=== PATIENT | male | born 1945 | race American Indian/Alaskan Native ===

== ENCOUNTER 2019-10-04 14:32 | Inpatient (IN) | payer MEDICARE, OTHER ==
[~2019-10-04] VITALS: Ht 172.7 cm; Wt 99.8 kg
[~2019-10-04 14:32] MED LIST: Adult Low Dose81 MG PO; Carvedilol25 MG PO; LEVO750; Metformin HCl500 M1 PO; Ramipril10 MG PO; SILD50TA PO; Simvastatin20 MG PO; Spironolactone25 MG PO
[2019-10-04 19:58] LABS: BASOPHILS ABSOLUTE AUTO 0.02 K/mm3 (0.00-0.23); BASOPHILS PERCENT AUTO 0 % (0-2); EOSINOPHILS ABSOLUTE AUTO 0.06 K/mm3 (0.00-0.68); EOSINOPHILS PERCENT AUTO 1 % (0-6); Hematocrit 37.8 % (37.0-53.0); Hemoglobin 12.8 g/dL (13.5-17.5); IMMATURE GRAN ABSOLUTE AUTO 0.03 K/mm3 (0.00-0.10); IMMATURE GRAN PERCENT AUTO 0 % (0-1); LYMPHOCYTES ABSOLUTE AUTO 1.21 K/mm3 (0.84-5.20); LYMPHOCYTES PERCENT AUTO 15 % (21-46); MONOCYTES ABSOLUTE AUTO 0.84 K/mm3 (0.16-1.47); MONOCYTES PERCENT AUTO 10 % (4-13); Mean Corpuscular HGB 33.5 pg (26.0-34.0); Mean Corpuscular HGB Conc 33.9 g/dL (31.5-36.5); Mean Corpuscular Volume 99 fL (80-100); Mean Platelet Volume 10.8 fL (9.1-12.4); NEUTROPHILS ABSOLUTE AUTO 6.09 K/mm3 (1.96-9.15); NEUTROPHILS PERCENT AUTO 74 % (41-73); Platelet Count 276 K/mm3 (150-400); RDW Standard Deviation 43.8 fL (35.1-46.3); Red Blood Cell Count 3.82 M/mm3 (4.30-5.90); White Blood Cell Count 8.25 K/mm3 (4.00-11.30)
[2019-10-04 20:18] LABS: Alanine Aminotransfer (ALT/SGP 15 U/L (12-78); Albumin, Blood 3.6 g/dL (3.4-5.0); Albumin/Globulin Ratio 0.8 (0.8-1.8); Alk Phos 113 U/L (50-136); Anion Gap 6 mmol/L (6-16); Aspartate Aminotrans (AST/SGOT 16 U/L (12-37); Bilirubin, Total 0.7 mg/dL (0.1-1.0); Blood Urea Nitrogen 11 mg/dL (8-24); Bun/Creatinine Ratio 11.4 (12.0-20.0); CO2, Blood 31 mmol/L (21-32); Calcium, Blood 9.6 mg/dL (8.5-10.1); Chloride, Blood 99 mmol/L (98-108); Creatinine, Blood 0.97 mg/dL (0.60-1.20); Globulin, Blood 4.6 g/dL (2.2-4.0); Glomerular Filtration Rate >60 (60-); Glucose, Blood 139 mg/dL (70-99); Potassium, Blood 3.8 mmol/L (3.5-5.5); Sodium, Blood 136 mmol/L (136-145); Total Protein, Blood 8.2 g/dL (6.4-8.2)
[2019-10-04] MEDS ORDERED: Ramipril5 MG PO (20:45)
[2019-10-04] MEDS ORDERED: Metformin HCl1000 MG PO (20:46)
[2019-10-04] MEDS ORDERED: TAMSULOSIN HCL0.4 M1 PO (20:46)
[2019-10-04] MEDS ORDERED: ATOR10 PO (20:47)
[2019-10-04] MEDS ORDERED: FUROSEMIDE40 MG PO (20:47)
[2019-10-04] MEDS ORDERED: NEURONTIN300 MG PO (20:47)
[2019-10-04] MEDS ORDERED: Cetirizine HCl10 MG PO (20:49)
[2019-10-04] MEDS ORDERED: CARVEDILOL12.5 MG PO (21:06)
[2019-10-04] MEDS ORDERED: Coreg12.5 MG PO (22:18)
[2019-10-04] MEDS ORDERED: TOCO1000 PO (22:23)
[2019-10-04] MEDS ORDERED: THERA1 EACH PO (22:23)
--- NOTE | 2019-10-04 23:24 | NUR ---
ADMIT TO SURGICAL FLOOR PT ARRIVED FROM ED VIA WHEELCHAIR AT APPROX 2200 TODAY. IS A/OX4 WITH VSS. DENIES SOB, CHEST PAIN, N/V OR ANY N/T. ORIENTATION TO ROOM GIVEN. IS CURRENTLY RESTING IN BED WITH CALL LIGHT IN REACH.
--- NOTE | 2019-10-05 03:50 | NUR ---
SHIFT SUMMARY PT A/OX4 WITH VSS. DENIES N/V AND IS PASSING FLATUS. MEDICATED FOR PAIN ONCE T/O THE NIGH. USES URINAL AND CALL LIGHT APPROPRIATELY. IND IN ROOM WITH STAND BY. HAS IVF RUNNING PER ORDERS. DID NOT SLEEP WELL, STATES HE USUALLY STAYS AWAKE UNTIL 2AM. IS CURRENTLY WATCHING TV IN BED WITH CALL LIGHT IN REACH. WILL CONT TO MONITOR AND GIVE REPORT TO ONCOMING RN.
[2019-10-05 04:58] LABS: BASOPHILS ABSOLUTE AUTO 0.02 K/mm3 (0.00-0.23); BASOPHILS PERCENT AUTO 0 % (0-2); EOSINOPHILS ABSOLUTE AUTO 0.12 K/mm3 (0.00-0.68); EOSINOPHILS PERCENT AUTO 2 % (0-6); Hematocrit 36.5 % (37.0-53.0); Hemoglobin 12.5 g/dL (13.5-17.5); IMMATURE GRAN ABSOLUTE AUTO 0.03 K/mm3 (0.00-0.10); IMMATURE GRAN PERCENT AUTO 0 % (0-1); LYMPHOCYTES ABSOLUTE AUTO 1.44 K/mm3 (0.84-5.20); LYMPHOCYTES PERCENT AUTO 18 % (21-46); MONOCYTES ABSOLUTE AUTO 1.11 K/mm3 (0.16-1.47); MONOCYTES PERCENT AUTO 14 % (4-13); Mean Corpuscular HGB 33.6 pg (26.0-34.0); Mean Corpuscular HGB Conc 34.2 g/dL (31.5-36.5); Mean Corpuscular Volume 98 fL (80-100); Mean Platelet Volume 10.2 fL (9.1-12.4); NEUTROPHILS ABSOLUTE AUTO 5.27 K/mm3 (1.96-9.15); NEUTROPHILS PERCENT AUTO 66 % (41-73); Platelet Count 260 K/mm3 (150-400); RDW Coefficient Variation 11.9 % (11.7-14.2); RDW Standard Deviation 43.6 fL (35.1-46.3); Red Blood Cell Count 3.72 M/mm3 (4.30-5.90); White Blood Cell Count 7.99 K/mm3 (4.00-11.30)
[2019-10-05 05:13] LABS: Anion Gap 6 mmol/L (6-16); Blood Urea Nitrogen 9 mg/dL (8-24); Bun/Creatinine Ratio 9.7 (12.0-20.0); CO2, Blood 28 mmol/L (21-32); Chloride, Blood 103 mmol/L (98-108); Creatinine, Blood 0.93 mg/dL (0.60-1.20); Glomerular Filtration Rate >60 (60-); Glucose, Blood 117 mg/dL (70-99); Potassium, Blood 3.9 mmol/L (3.5-5.5); Sodium, Blood 137 mmol/L (136-145)
--- NOTE | 2019-10-05 11:28 | NUR ---
SOAP SUDS ENEMA GIVEN. PT WAS ABLE TO PASS 2 BROWN LIQUID STOOLS.
--- NOTE | 2019-10-05 17:47 | NUR ---
SHIFT SUMMARY PT'S PRIMARY COMPLAINT THIS SHIFT HAS BEEN SEVERE LOWER BACK PAIN, HE IS GETTING DILAUDID WHICH HELPS TO MANAGE. PT HAS DENIED ABD PAIN, N/V THIS SHIFT. PT HAD 2 LIQUID BOWEL MOVEMENTS TODAY. HE IS A 1 PERSON SBA WHEN OOB. VSS. WILL MONITOR UNTIL REPORT TO ONCOMING RN.
--- NOTE | 2019-10-05 22:01 | NUR ---
SPOKE TO DR. BENITEZ ABOUT PT ELEVATED BP EVEN AFTER PRN GIVEN. ORDERS TO RESTART HOME BP MEDS, COREG RAMIPRIL AND ALDACTONE GIVEN. COREG AND RAMIPRIL ORDERED TO BE GIVEN NOW. PHARMACY SUBSTITUTE OF LISINOPRIL FOR RAMIPRIL CONFIRMED WITH PHARMACY.
--- NOTE | 2019-10-06 04:28 | NUR ---
SHIFT SUMMARY AA0X4, VSS. PT HAS HAD MULTIPLE LOOSE STOOLS. PT URGENCY HAS CAUSE SOME INC TODAY. PT REPORTED THAT HIS STOMACH HAS FELT BETTER. STILL C/O PAIN 10/10 IN LOWER BACK DURING SHIFT. PT AMBULATES WELL TO RESTROOM TO VOID. PT HAS BEEN PLEASANT AND COOPERATIVE WITH CARE DURING SHIFT. MEDICATED FOR PAIN WITH 0.5 DIL PER EMAR. PT APPEARS COMFORTABLE IN BED WITH NO VISIBLE GRIMACE OR MOANING, STILL REPORTS 10/10.
--- NOTE | 2019-10-06 07:36 | NUR ---
DR SIMON RECENTLY IN TO SEE PT.
--- NOTE | 2019-10-06 08:08 | NUR ---
DR HAHN HERE TO SEE PT, DISCUSSED PT'S C/O BACK PAIN, VS. FRIEND IN ROOM.
[2019-10-06] MEDS ORDERED: OXYC5 PO (15:05)
[2019-10-06] MEDS ORDERED: LIDO700A20 (15:16)
[2019-10-06] MEDS ORDERED: SENNA PLUS 8.61 EACH PO (15:18)
[2019-10-06] MEDS ORDERED: MIRALAX17 GM PO (15:18)
--- NOTE | 2019-10-06 15:35 | NUR ---
DISCHARGE: PT EATING AND DRINKING, VOIDING, HAVING BM'S. PT REPORTS WANTING TO GO HOME, REPORTS PAIN MEDICATION WORKING WHEN PT NOT BOTHERED BY MULT PEOPLE COMING IN AND OUT OF ROOM. THERAPY HAS SEEN PT AND REPORTS CLEARED TO GO HOME. MEDICATIONS WERE CALLED TO PHARMACY OF PT'S CHOICE. LOAN DOCUMENTS CLOSER ALSO CAME TO SEE PT TODAY. PT REPORTS UNDERSTANDING OF DISCHARGE INSTRUCTIONS INCLUDING DOSES CHANGED ON HOME MEDICATIONS. PT REPORTS HAVING DOSES AT HOME AND THAT HE GETS A 90 DAY SUPPLY AND HAS PLENTY AT HOME. PT SENT WITH BELONGINGS AND SCRIPT FOR PAIN WELL PAPERWORK. PT RECIEVING RIDE HOME FROM FRIEND.
== END 2019-10-06 16:15 | disposition home or self-care (01) | DRG 390 ==
LOC: ER 14:32 → SURS 21:57
PROVIDERS: Emergency Medicine; ADMIT Internal Medicine
DX: K56.609 Unspecified intestinal obstruction, unspecified as to partial versus complete obstruction (principal); I10 Essential (primary) hypertension; E11.9 Type 2 diabetes mellitus without complications; E78.5 Hyperlipidemia, unspecified; E66.9 Obesity, unspecified; Z68.33 Body mass index [BMI] 33.0-33.9, adult; Z79.82 Long term (current) use of aspirin; Z79.84 Long term (current) use of oral hypoglycemic drugs
CPT/HCPCS: 36415; 71045; 74019; 74176; 74250; 80048; 80053; 82947; 83690; 85025; 93005; 93010; 96361; 96374; 96375; 97161; 97530; 99285-25; J1170; J2405; J7030; J7120

== ENCOUNTER 2020-03-27 00:04 | Emergency (ER) | payer OTHER, MEDICARE ==
[~2020-03-27] VITALS: Ht 172.7 cm; Wt 99.8 kg
[~2020-03-27 00:04] MED LIST changes: +ASPIR 8181 MG PO; +ATOR10 PO; -Adult Low Dose81 MG PO; +CARVEDILOL12.5 MG PO; +CEFD300 PO; +Cetirizine HCl10 MG PO; +Coreg12.5 MG PO; +FUROSEMIDE40 MG PO; +LIDO700A20; +MIRALAX17 GM PO; +Metformin HCl1000 MG PO; +NEURONTIN300 MG PO; +OXYC5 PO; +Ramipril5 MG PO; +SENNA PLUS 8.61 EACH PO; +TAMSULOSIN HCL0.4 M1 PO; +THERA1 EACH PO; +TOCO1000 PO
== END 2020-03-27 01:25 | disposition home or self-care (01) ==
LOC: ER 00:04
DX: T83.098A Other mechanical complication of other urinary catheter, initial encounter (principal); I10 Essential (primary) hypertension; E11.9 Type 2 diabetes mellitus without complications; E78.5 Hyperlipidemia, unspecified
CPT/HCPCS: 99282

== ENCOUNTER 2020-04-11 12:20 | Inpatient (IN) | payer OTHER, MEDICARE ==
[~2020-04-11] VITALS: Ht 175.3 cm; Wt 93.3 kg
[2020-04-11 13:19] LABS: International Normalized Ratio 1.23
[2020-04-11 13:33] LABS: BASOPHILS ABSOLUTE AUTO 0.02 K/mm3 (0.00-0.23); BASOPHILS PERCENT AUTO 0 % (0-2); EOSINOPHILS PERCENT AUTO 0 % (0-6); IMMATURE GRAN ABSOLUTE AUTO 0.29 K/mm3 (0.00-0.10); IMMATURE GRAN PERCENT AUTO 2 % (0-1); LYMPHOCYTES ABSOLUTE AUTO 0.99 K/mm3 (0.84-5.20); LYMPHOCYTES PERCENT AUTO 5 % (21-46); MONOCYTES ABSOLUTE AUTO 1.83 K/mm3 (0.16-1.47); MONOCYTES PERCENT AUTO 9 % (4-13); Mean Corpuscular HGB 30.9 pg (26.0-34.0); Mean Corpuscular HGB Conc 29.9 g/dL (31.5-36.5); Mean Corpuscular Volume 103 fL (80-100); Mean Platelet Volume 10.3 fL (9.1-12.4); NEUTROPHILS ABSOLUTE AUTO 16.44 K/mm3 (1.96-9.15); NEUTROPHILS PERCENT AUTO 84 % (41-73); NRBC ABSOLUTE 0.06 K/mm3 (0.00-0.02); NRBC Auto 0.3 /100 WBC (0.0-0.2); Platelet Count 494 K/mm3 (150-400); RDW Standard Deviation 62.7 fL (35.1-46.3); Red Blood Cell Count 1.23 M/mm3 (4.30-5.90); White Blood Cell Count 19.57 K/mm3 (4.00-11.30)
[2020-04-11 13:35] LABS: Albumin, Blood 2.7 g/dL (3.4-5.0); Albumin/Globulin Ratio 0.7 (0.8-1.8); Bilirubin, Total 0.4 mg/dL (0.1-1.0); Calcium, Blood 8.7 mg/dL (8.5-10.1); Creatinine, Blood 1.78 mg/dL (0.60-1.20); Globulin, Blood 3.7 g/dL (2.2-4.0); Total Protein, Blood 6.4 g/dL (6.4-8.2)
[2020-04-11 13:39] LABS: Hemoglobin 3.8 g/dL (13.5-17.5)
[2020-04-11 13:40] LABS: Hematocrit 12.7 % (37.0-53.0)
[2020-04-11] MEDS ORDERED: SILDENAFIL CITR50 MG PO (13:42)
[2020-04-11] MEDS ORDERED: TAMSULOSIN HCL0.4 M1 PO (13:42)
[2020-04-11] MEDS ORDERED: NEURONTIN300 MG PO (13:44)
[2020-04-11 16:49] LABS: Source, Urine Catheter
[2020-04-11 16:56] LABS: Appearance, Urine Turbid (Clear); Bilirubin, Urine Neg (Neg); Blood, Urine 4+ (Neg); Color, Urine Yellow (P-Yellow); Glucose Qualitative, Urine Neg (Neg); Ketones, Urine 1+ (Neg); Leukocyte Esterase, Urine 3+ (Neg); Nitrite, Urine Neg (Neg); Protein, Urine 2+ (Neg); Specific Gravity, Urine 1.015 (1.003-1.022); Urobilinogen, Urine NORM (Normal)
[2020-04-11 17:14] LABS: White Blood Cells, Urine TNTC /hpf (0-5)
[2020-04-11 17:15] LABS: Bacteria Many /hpf; Red Blood Cells, Urine 25-50 /hpf (0-2); Squamous Epithelial Cells Not Seen /hpf (Few)
[2020-04-11 17:33] LABS: U Oxycodone Screen DETECTED
[2020-04-11 17:34] LABS: U Amphetamine Screen Not Detected; U Barbituate Screen Not Detected; U Benzodiazapine Screen Not Detected; U Buprenorphine Screen Not Detected; U Cannabinoids Screen Not Detected; U Cocaine Screen Not Detected; U Methadone Screen Not Detected; U Methamphetamine Screen Not Detected; U Opiates Screen Not Detected; U Phencyclidine Screen Not Detected; U Propoxyphene Screen Not Detected
[2020-04-11 18:45] LABS: BASOPHILS ABSOLUTE AUTO 0.01 K/mm3 (0.00-0.23); BASOPHILS PERCENT AUTO 0 % (0-2); EOSINOPHILS PERCENT AUTO 0 % (0-6); Hematocrit 18.2 % (37.0-53.0); IMMATURE GRAN ABSOLUTE AUTO 0.14 K/mm3 (0.00-0.10); IMMATURE GRAN PERCENT AUTO 1 % (0-1); LYMPHOCYTES ABSOLUTE AUTO 0.62 K/mm3 (0.84-5.20); LYMPHOCYTES PERCENT AUTO 4 % (21-46); MONOCYTES ABSOLUTE AUTO 1.53 K/mm3 (0.16-1.47); MONOCYTES PERCENT AUTO 10 % (4-13); Mean Corpuscular HGB 30.2 pg (26.0-34.0); Mean Corpuscular HGB Conc 31.3 g/dL (31.5-36.5); Mean Platelet Volume 9.9 fL (9.1-12.4); NEUTROPHILS ABSOLUTE AUTO 12.45 K/mm3 (1.96-9.15); NEUTROPHILS PERCENT AUTO 84 % (41-73); NRBC ABSOLUTE 0.03 K/mm3 (0.00-0.02); NRBC Auto 0.2 /100 WBC (0.0-0.2); Platelet Count 390 K/mm3 (150-400); RDW Coefficient Variation 17.2 % (11.7-14.2); RDW Standard Deviation 58.4 fL (35.1-46.3); Red Blood Cell Count 1.89 M/mm3 (4.30-5.90); White Blood Cell Count 14.75 K/mm3 (4.00-11.30)
[2020-04-11 18:48] LABS: Mean Corpuscular Volume 96 fL (80-100)
[2020-04-11 18:51] LABS: Hemoglobin 5.7 g/dL (13.5-17.5)
--- NOTE | 2020-04-11 20:58 | NUR ---
ADMIT RECEIVED FROM ER VIA GURNEY. PT IS AWAKE AND ALERT. ORIENTED TO SELF AND MONTH/YEAR ONLY AT THIS TIME. THINKS HE IS IN [facility] AND DOES NOT KNOW THAT HE IS IN THE HOSPITAL. CONFUSED CONVERSATION NOTED AND PT APPEARS TO BE HAVING VISUAL HALLUCINATIONS. TREMORS NOTED IN BILATERAL UPPER EXTREMITIES AND IN CHEST. PT STATES THIS IS NORMAL FOR HIM. MOVES ALL EXTREMITIES WEAKLY AND FOLLOWS SIMPLE COMMANDS. ANGRY AT TIMES. MONITOR SHOWS OCCASIONAL PACED RHYTHM- DIFFICULT TO ASSESS UNDERLYING RHYTHM D/T TREMORING. BP STABLE. 2LNC WITH SATS 97-97%. RESPIRATIONS ARE EVEN AND UNLABORED. DENIES C/O DYSPNEA OR SOB. DENIES C/O PAIN OR NAUSEA AT THIS TIME. C/O BEING THIRSTY AND BECOMES ANGRY WHEN TOLD THAT HE IS NPO. KEARNEY PATENT AND DRAINING CLEAR YELLOW URINE. PROTONIX INFUSING PER ORDER. 3RD UNIT PRBCs INFUSING AT THIS TIME. SEE ADMIT ASSESSMENT FOR FULL ASSESSMENT.
--- NOTE | 2020-04-11 21:00 | NUR ---
CALL TO DR. INDER LOVING NOTIFIED OF THE FACT THAT THE PT DID NOT GO TO OR THIS EVENING. WILL CONTINUE PROTONIX ORDERED AND WILL TRANSFUSE NEEDED TO KEEP HGB > 8. PT WILL REMAIN NPO.
[2020-04-12 00:49] LABS: Hematocrit 24.5 % (37.0-53.0)
--- NOTE | 2020-04-12 01:41 | NUR ---
RESTRAINTS PT CONTINUES TO BE CONFUSED AND IS NOW PULLING ON IV LINES AND IVs. BILATERAL SOFT WRIST RESTRAINTS ON AT THIS TIME.
[2020-04-12 04:14] LABS: BASOPHILS ABSOLUTE AUTO 0.01 K/mm3 (0.00-0.23); BASOPHILS PERCENT AUTO 0 % (0-2); EOSINOPHILS PERCENT AUTO 0 % (0-6); Hematocrit 23.3 % (37.0-53.0); Hemoglobin 7.5 g/dL (13.5-17.5); IMMATURE GRAN ABSOLUTE AUTO 0.18 K/mm3 (0.00-0.10); IMMATURE GRAN PERCENT AUTO 1 % (0-1); LYMPHOCYTES ABSOLUTE AUTO 0.65 K/mm3 (0.84-5.20); LYMPHOCYTES PERCENT AUTO 5 % (21-46); MONOCYTES ABSOLUTE AUTO 1.54 K/mm3 (0.16-1.47); MONOCYTES PERCENT AUTO 11 % (4-13); Mean Corpuscular HGB 30.6 pg (26.0-34.0); Mean Corpuscular HGB Conc 32.2 g/dL (31.5-36.5); Mean Corpuscular Volume 95 fL (80-100); Mean Platelet Volume 9.3 fL (9.1-12.4); NEUTROPHILS ABSOLUTE AUTO 11.94 K/mm3 (1.96-9.15); NEUTROPHILS PERCENT AUTO 83 % (41-73); NRBC ABSOLUTE 0.07 K/mm3 (0.00-0.02); NRBC Auto 0.5 /100 WBC (0.0-0.2); Platelet Count 331 K/mm3 (150-400); RDW Coefficient Variation 16.7 % (11.7-14.2); RDW Standard Deviation 55.8 fL (35.1-46.3); Red Blood Cell Count 2.45 M/mm3 (4.30-5.90); White Blood Cell Count 14.32 K/mm3 (4.00-11.30)
[2020-04-12 04:34] LABS: Bun/Creatinine Ratio 29.9 (12.0-20.0); Calcium, Blood 7.9 mg/dL (8.5-10.1); Creatinine, Blood 1.44 mg/dL (0.60-1.20); Potassium, Blood 3.4 mmol/L (3.5-5.5)
--- NOTE | 2020-04-12 06:12 | NUR ---
SHIFT SUMMARY CONTINUES TO BE CONFUSED AND DISORIENTED. ORIENTED TO SELF AND YEAR ONLY THIS AM. FOLLOWS DIRECTIONS. CONTINUES WITH VISUAL HALLUCINATIONS. CIWA 14-16. MEDICATED WITH ATIVAN 2MG IV X 2 DOSES. BILATERAL SOFT WRIST RESTRAINTS STARTED AT 0141 D/T PT PULLING ON IVs AND IV LINES. NPO T/O NOC. NO SIGNS OF ACTIVE BLEED NOTED. PT DENIES NAUSEA. C/O BEING HUNGRY AND THIRSTY. TOTAL OF 5 UNITS OF PRBCs GIVEN IN ER AND ICU. 5TH UNIT INFUSING AT THIS TIME. VSS. PACED RHYTHM NOTED. RA SATS STABLE AND RESPIRATIONS EVEN AND UNLABORED. KEARNEY PATENT AND DRAINING CLOUDY YELLOW URINE. BANANA BAG AND LR ON HOLD WHILE PRBCs ARE INFUSING. PROTONIX GTT CONTINUES PER ORDER. WILL REPORT TO ONCOMING RN WHEN AVAILABLE.
--- NOTE | 2020-04-12 07:57 | NUR ---
ASSUMED CARE RECEIVED REPORT FROM WILMAR ROTH. PT IS LYING IN BED AWAKE, CONFUSED, AND TREMULOUS. HE KNOWS HES IN A HOSP[place] IN [place], BUT IS MAKING ILLOGICAL STATEMENTS, AND HALLUCINATING. HE IS OFTEN TALKING ALOUD WHEN NO ONE IS IN ROOM. HE CAN ANSWER SOME BASIC QUESTIONS ABOUT HIS CURRENT COMFORT LEVEL. HE IS A LITTLE ANXIOUS, NOT IN PAIN, AND DENIES NAUSEA. HE HAS A PROTONIX GTTP INFUSING AT 10ML/HR, HIS BLOOD IS CURRENTLY BEING FLUSHED, AND HE HAS NS TKO. ONCE THE BLOOD IS DONE, I WILL INFUSE THE REST OF THE BANANA BAG. HE IS IN SWB RESTRAINTS. HE HAS A PATENT KEARNEY DRAINING YELLOW URINE, HE IS REFUSING SCDs (TO THE POINT OF AGITATION). HE HAS A MESSY CARDIAC MONITORING TRACING, THAT WILL OFTEN MEASURE DOUBLE THE ACTUAL RATE. HE HAS A PACER (UNKNOWN EXACTLY WHAT TYPE) BUT HE IS GETING VENTRIULARLY PACED NEARLY ALL THE TIME EXCEPT FOR THE SEMI FREQUENT PVCs. BED IS LOW AND LOCKED. CALL LIGHT WITHIN REACH.
--- NOTE | 2020-04-12 09:23 | NUR ---
UPDATE PT APPEARS COMFORTABLE, ALTHOUGH HE STILL MUMBLES TO HIMSELF IN ROOM. HE HAS STABLE VITALS - IT IS DIFFICULT TO GET AN ACCURATE SPO2 MEASUREMENT - I HAVE BEEN SPOT CHECKING SATs. THE CARDIAC MONITORING CONTINUES TO FREQUENTLY DOUBLE COUNT THE HEART RATE BY ACCIDENT - SO NOT EVERY FAST RATE APPEARS TO BE TRUE. DR. CARPENTER SAYS THAT PT CAN HAVE CLEAR LIQUIDS, BUT AFTER LUNCH TO MAKE HIM NPO. UNLESS PT WAKES UP AND CAN HOLD ATTENTION, WHILE SITTING UPRIGHT, I AM GOING TO KEEP HIM NPO - HE IS CURRENTLY AN ASPIRATION RISK. THERE IS AN ENDOSCOPY PLANNED FOR LATER TODAY. THE PT HAS HAD NO EVIDENCE OF MELENA SINCE ADMISSION TO ICU. I KELL HAVE HIS H&H RECHECKED NOW THE FIFTH UNIT HAS COMPLETELY TRANSFUSED.
[2020-04-12 10:08] LABS: Hematocrit 27.7 % (37.0-53.0)
--- NOTE | 2020-04-12 11:56 | NUR ---
UPDATE/SPOKE WITH DAUGHTER JANNETH, WHO GOES BY [employer] [place] CALLED AND GAVE ME SOME ADDITIONAL INFORMATION. APPARENTLY HE HAS BEEN PUT ON HOLD FOR ANY BACK SURGERY AND HE HAS BEEN DEALING WITH CHRONIC LOWER BACK PAIN FOR A "WHILE", SHE WAS UNSURE WHAT THE ACTUAL PROBLEM WAS. THAT ALONG WITH HIS PASSING AWAY IN 2010 HAS MADE THE PT BECOME "VERY DEPRESSED". SHE REPORTED ABOUT A RECENT ADMISSION OF HIS IN WHICH HE HAD A BLOOD CLOT IN HIS BLADDER, AND UPON DISCHARGE HE TOLD HER THAT "IT [WAS] STILL THERE", BUT SHE REALLY DOESN'T KNOW MORE THAN THAT. SHE WAS UPDATED ON THE PT'S CONDITION AND WILL CALL BACK THIS EVENING AFTER THE ENDOSCOPY FOR AN UPDATE.
--- NOTE | 2020-04-12 13:13 | NUR ---
UPDATE NO MAJOR CHANGES. PT IS ASLEEP, LOOKING COMFORTABLE, WITH REMEDIAL PROJECT MANAGER EKG TRACING PROBABLY D/T REDUCED TREMORS. SEE CARDIOVASCULAR REASSESSMENT. BP SOFT (MAP IS STILL AT LEAST 65) - DECREASED PRECEDEX TO 0.1 MCG/KG/HR. BED LOW AND LOCKED. CALL LIGHT WITHIN REACH.
--- NOTE | 2020-04-12 17:52 | NUR ---
04/12/20 1752 Jerald De Leon See Anesthesia recordBite Block Placed3-LEAD EKG REVIEWED WITH PHYSICIAN PRIOR TO START OF PROCEDURE.History, Chart, Medications and Allergies reviewed before start of procedure.MONITOR INTACT WITH CONTINUOUS PULSE OXIMETRY AND INTERMITTENT BP.O2 VIA N/C INTACT THROUGHOUT SEDATION/PROCEDURE.
--- NOTE | 2020-04-12 19:33 | NUR ---
SHIFT SUMMARY/BLOOD PRESSURE/EGD/NEURO PT STARTED HAVING LOWER BPs, MAP WAS PRIMARILY MAINTAINED OVER 60, THOUGH. I PUT THE PRECEDEX ON STANDBY AT 1615, BECAUSE THE PT WAS ADEQUETLY SEDATED, SNORING, APPEARING COMFORTABLE, BUT HAD A LOWER BP. ~84/51, 62. HIS BP IMPROVED FOLLOWING THAT. HIS CIWA WAS MINIMAL ALL DAY DUE TO THE PRECEDEX AND ATIVAN. THIS MORNING IT WAS 14 OR MORE, AND AFTER HIS EGD IT WAS AROUND THE SAME, BUT HE WAS NOT ACTIVELY HALLUCINATING (OR AT LEAST WASNT SHOWING ANY EVIDENCE OF SUCH). [id number]: EGD. ANESTHESIOLOGY REQUESTED I GIVE ATIVAN FOR THE PROCEDURE/ETOH W/D AND I GAVE 1 MG AT 173 DESPITE A SOFT BP. SHE WAS GOING TO GIVE SOME KETAMINE WHICH REALLY HELPED HIS BP. AFTER PROCEDURE AT 1809 PT WAS "RECOVERING". SOON I TOOK OVER, HIS AIRWAY WAS PATENT, HE WAS ON THE FACE MASK AT 15L, VITALS WERE STABLE: NSR, HR IN 90's, 24 RESP RATE, 96-100% SATs, 97.0 TEMP, PT WAS MOVING AROUD RESTLESS. I WAS ABLE TO AROUSE HIM AND TALK WITH HIM. HE APPEARED MORE ORIENTED THAN THIS MORNING. HE CAN TELL ME HE IS IN A HOSPITAL AND IN [place]. HE DENIES PAIN, BUT STATES HE USUALLY HAS BACK PAIN AND TAKES OXYCODONE FOR IT. HE WASN'T APPEARING TO TALK ILLOGICALLY TO HIMSELF. ALTHOUGH HE STARTED MUMBLING OR SPEAKING WITH LESTER CAMPOS TO ME. HE WAS TAKEN OUT OF RESTRAINTS AT 1830 - HE WAS FOLLOWING DIRECTIONS. BED LOW AND LOCKED. CALL LIGHT WITHIN REACH.
--- NOTE | 2020-04-12 20:15 | NUR ---
ASSESSMENT/ASSUMED CARE PT SLEEPING, OPENS EYES BRIEFLY TO VERBAL STIMULI AND REPOSITIONING, BUT BACK TO SLEEP QUICKLY WHEN UNDISTURBED. LUNGS CLEAR BUT DECREASED IN THE BASES ON 2 LITER O2 VIA NC. PT SNORING AND MOUTH BREATHING. RESP EVEN AND NONLABORED. HEART RATE 100% PACED WITH PVC'S NOTED. BP STABLE. BT+ HYPERACTIVE. ATTENDS CD&I. KEARNEY CATH PATENT DRAINING CLEAR YELLOW URINE. IV 20G TO LEFT AC SALINE LOCKED, SITE CLEAR, FLUSHED WITHOUT DIFFICULTY. IV 20G TO RIGHT WRIST WITH NS AT 10 ML/HR, SITE CLEAR. IV 20G TO RIGHT UPPER ARM WITH LR AT 100 ML/HR, SITE CLEAR. KEARNEY CATH PATENT DRAINING CLEAR YELLOW URINE. COCCYX DRSG CD&I ON FOR PROTECTION. PRECEDEX ON STANDBY
--- NOTE | 2020-04-12 23:46 | NUR ---
REASSESSMENT PT AWAKE, REPOSITIONED IN BED. CIWA 14, MED WITH LIBRIUM. PT TAKING ICE CHIPS AND WATER WITHOUT DIFFICULTY. LUNGS CLEAR BUT DECREASE ON 2 LITERS O2 VIA NC. SPO2 98-100%. RESP EVEN AND NONLABORED. HEART RATE CONT PACED. BP STABLE. BT+ HYPERACTIVE. ATTENDS CD&I. KEARNEY CATH PATENT DRAINING CLEAR YELLOW URINE.
[2020-04-13 03:26] LABS: BASOPHILS ABSOLUTE AUTO 0.02 K/mm3 (0.00-0.23); BASOPHILS PERCENT AUTO 0 % (0-2); EOSINOPHILS ABSOLUTE AUTO 0.04 K/mm3 (0.00-0.68); EOSINOPHILS PERCENT AUTO 0 % (0-6); Hematocrit 26.8 % (37.0-53.0); Hemoglobin 8.5 g/dL (13.5-17.5); IMMATURE GRAN ABSOLUTE AUTO 0.19 K/mm3 (0.00-0.10); IMMATURE GRAN PERCENT AUTO 2 % (0-1); LYMPHOCYTES PERCENT AUTO 8 % (21-46); MONOCYTES ABSOLUTE AUTO 1.14 K/mm3 (0.16-1.47); MONOCYTES PERCENT AUTO 9 % (4-13); Mean Corpuscular HGB 30.6 pg (26.0-34.0); Mean Corpuscular HGB Conc 31.7 g/dL (31.5-36.5); Mean Corpuscular Volume 96 fL (80-100); Mean Platelet Volume 9.4 fL (9.1-12.4); NEUTROPHILS ABSOLUTE AUTO 9.98 K/mm3 (1.96-9.15); NEUTROPHILS PERCENT AUTO 81 % (41-73); NRBC ABSOLUTE 0.03 K/mm3 (0.00-0.02); NRBC Auto 0.2 /100 WBC (0.0-0.2); Platelet Count 275 K/mm3 (150-400); RDW Coefficient Variation 17.5 % (11.7-14.2); RDW Standard Deviation 58.8 fL (35.1-46.3); Red Blood Cell Count 2.78 M/mm3 (4.30-5.90); White Blood Cell Count 12.37 K/mm3 (4.00-11.30)
[2020-04-13 03:52] LABS: Alanine Aminotransfer (ALT/SGP 44 U/L (12-78); Albumin, Blood 2.4 g/dL (3.4-5.0); Albumin/Globulin Ratio 0.7 (0.8-1.8); Alk Phos 70 U/L (50-136); Anion Gap 2 mmol/L (6-16); Aspartate Aminotrans (AST/SGOT 36 U/L (12-37); Bilirubin, Total 0.4 mg/dL (0.1-1.0); Blood Urea Nitrogen 21 mg/dL (8-24); Bun/Creatinine Ratio 18.8 (12.0-20.0); CO2, Blood 31 mmol/L (21-32); Chloride, Blood 114 mmol/L (98-108); Creatinine, Blood 1.12 mg/dL (0.60-1.20); Globulin, Blood 3.4 g/dL (2.2-4.0); Glomerular Filtration Rate >60 (60-); Glucose, Blood 174 mg/dL (70-99); Potassium, Blood 3.5 mmol/L (3.5-5.5); Sodium, Blood 147 mmol/L (136-145); Total Protein, Blood 5.8 g/dL (6.4-8.2)
--- NOTE | 2020-04-13 05:32 | NUR ---
SHIFT SUMMARY PT AWAKE WATCHING TV AND PICKING AT THINGS. CIWA 12-14 DURING THE NIGHT. MED WITH LIBRIUM TWICE. LUNGS CLEAR BUT DECREASED IN THE BASE. PT TITRATED FROM 10 LITERS VIA SMIPLE MASK O2 DOWN TO ROOMAIR. RESP EVEN AND NONLABORED. HEART RATE 100% PACED. PT TURNED Q2HR. BLOOD GLUCOSE Q6HRS, NO INSULIN GIVEN. DIET INCREASED FROM FULL LIQUID TO REGULAR ADA. PT TAKING PO WITHOUT DIFFICULTY. VSS. REPORT TO ON COMING NURSE.
--- NOTE | 2020-04-13 07:54 | NUR ---
ASSUMED CARE RECIEVED REPORT FROM WILMAR LOPEZ. PT IS AWAKE, ALERT AND ORIENTED TO SELF, SOME ASPECTS OF HIS SITUATION (KNEW HE WAS FOUND DOWN, BUT SAID HES BEEN HERE FOR 4 DAYS, BUT DOESN'T KNOW WHERE 'WHERE' IS). HE IS MOSTLY A LITTLE CONFUSED BUT DOESN'T REALIZE IT. HE KEPT TALKING ABOUT HIS GUN HE IS CONVINCED HE HAS WITH HIM HERE, THAT HE CAN'T FIND IT. HE IS CURRENTLY EATING BREAKFAST, DOING WELL. HE IS VERY WEAK, WE COULDN'T GET HIM TO SIT AT THE SIDE OF BED, SO HE USED BED BOWERS, BUT HE FORGOT WHAT HE WAS DOING SO WE TOOK HIM OFF. HIS CIWA WAS ESTIMATED TO BE ~13, HE APPEARS FAIRLY ANXIOUS/TREMULOUS BUT NOT ACTIVELY HALLUCINATING. I GAVE HIM 50 MG OF LIBRIUM. HE TOLD ME HE DOESN'T DRINK THAT OFTEN AT HOME. BUT IM NOT SURE HOW MUCH WHAT HE IS SAYING RIGHT NOW IS RELIABLE. BED LOW AND LOCKED. VITALS ARE STABLE, HIS BP IS ELEVATED - HOWEVER, WILL TALK TO HOSP REGARDING RESTARTING HOME/BP MEDS. HE IS ON ROOM AIR, SAT'ING HIGH 90s. SINUS RHYTHM, 100% V-PACED, FREQUENT PVCs. RATE 90--LOW 100s. CALL LIGHT WITHIN REACH.
--- NOTE | 2020-04-13 10:51 | NUR ---
UPDATE CALLED DR. 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 AT LEAST FOR TIME BEING. VITALS ARE STABLE. PT REMAINS CONFUSED, GOING THROUGH WHAT IS MOST LIKELY HIS ETOH W/Ds. HE HASN'T BEEN PULLING AT STUFF, OR TAKING OF HIS BP CUFF/EKG ELECTRODES LATELY. HE IS CURRENTLY SITTING IN THE CHAIR, TOLERATING IT VERY WELL. CALL LIGHT WITHIN REACH.
--- NOTE | 2020-04-13 18:21 | NUR ---
SHIFT SUMMARY LAST FEW HOURS OF SHIFT PT HAS BEEN IN CHAIR, IN AND OUT OF SLEEP. HE WASN'T ABLE TO HAVE DINNER (I LEFT A PUDDING AND PEARS IN ROOM JUST IN CASE) PT IS UNABLE TO MAINTAIN FOCUS/ALERTNESS TO EAT. LAST DOSE OF ATIVAN WAS 1518 (2MG), AND LIBRIUM WAS 1237 (50MG). I HELD HIS CORREG FOR THE NIGHT PT WAS AN ASPIRATION RISK AND HAD STABLE VITALS. HE IS A "SQUIRMER" AND NO MATTER HOW MANY TIMES WE REPOSITION HIM HE ENDS UP IN "FUNKY" POSITIONS. ITS HARD TO UNDERSTAND HIM WHEN HE SPEAKS, ALTHOUGH, OCCASIONALLY YOU CAN CYBER THREAT ANALYST ON SOME OF THE THINGS HE IS TALKING ABOUT. HE WORKED WITH PT AND OT TODAY - WAS ABLE TO GET UP, WITH WALKER AND 2 PEOPLE ASISSTING HIM, AND GET TO CHAIR. THIS WAS EARLIER THIS AFTERNOON AND HAS BEEN THERE SINCE. HE REALLY ENJOYED THAT SESSION, LAUGHING, JOKING, SPEAKING MORE CLEARLY, ALTHOUGH, TREMULOUS, CONFUSED, AND SLIGHTLY DIAPHORETIC. HE HAD ADEQUATE URINE OUTPUT, HE HAS LR AT 100 ML/HR, HE GOT HIS BANANA BAG TODAY. THIS MORNING HE WAS DOING GREAT WITH PO FLUIDS, BUT 2ND HALF OF THE DAY HE HAS HAD BARLY ANY FLUIDS/FOOD. CALL LIGHT WITHIN REACH. CIWA CURRENTLY LOW-MODERATE - NO ATIVAN/LIBRIUM INDICATED.
--- NOTE | 2020-04-13 19:30 | NUR ---
INITAL SHIFT ASSESSMENT PT IS NOT VERY ALERT AT THIS TIME. HE IS ABLE TO ANSWER SOME QUESTIONS, BUT SPEECH IS VERY LOW AND MUMMBLED. HE IS SITTING UPRIGHT IN A CHAIR. HOWEVER HE IS SLUMPED OVER AND NOT HOLDING HIS HEAD UP WELL. HE IS ONLY ABLE TO FOLLOW A FEW COMMANDS, BUT NOT ABLE TO STAY AWAKE WITHOUT CONSTANT STIMULI. VITALS ARE STABLE. PT IS ON RA WITH NO SOB NOTED AND SATS WNL. PT HAS PACEMAKER TO LEFT CHEST WALL IN PLACE. HE IS PACED PRIMARLY 100 PERCENT OF THE TIME. PT DOES HAVE A ROUND ABD, BUT IS SOFT AND NON TENDER TO PALPITATION. KEARNEY CATH IN PLACE DRAINING DARK YELLOW URINE. PT HAS A IV ACCESS TO RIGHT UPPER ARM. LR RUNNING ORDERED. SEE EMAR FOR ALL ADMINISTERED MEDICATIONS. WILL CON'T TO MONITOR AND KEEP PT SAFE T/O SHIFT.
--- NOTE | 2020-04-13 21:03 | NUR ---
MOVED PT BACK TO BED FROM CHAIR PT WAS MOVED WITH [employer] AND THIS RN BACK TO BED FROM [facility]. HE IS VERY SOMMULENT AT THIS TIME. WILL NOT OPEN EYES TO COMMANDS. HE HOWEVER DID YELL OUT WITH THE MOVEMENT AND WHEN WE PLACED PILLOWS UNDER HIM HE YELLED ABOUT BEING MOVED. PT'S OXYGEN SATS ARE IN THE LOW 90'S THUS 2L N/C REPLACED ON PT AT THIS TIME. VITALS CON'T TO BE STABLE.
--- NOTE | 2020-04-14 00:42 | NUR ---
ASSUMING CARE OF PATIENT ASSUMING CARE OF PATIENT. REPORT RECEIVED FROM WILMAR BARKSDALE. CURRENT ASSESSMENT FINDINGS AGREE WITH PREVIOUSLY CHARTED ASSESSMENT. PATIENT REMAINS LETHARGIC BUT DOES ROUSE TO NOXIOUS STIMULI. REVIEWED RECENT MEDICATIONS.
[2020-04-14 03:32] LABS: BASOPHILS ABSOLUTE AUTO 0.02 K/mm3 (0.00-0.23); BASOPHILS PERCENT AUTO 0 % (0-2); EOSINOPHILS ABSOLUTE AUTO 0.25 K/mm3 (0.00-0.68); EOSINOPHILS PERCENT AUTO 3 % (0-6); Hematocrit 28.2 % (37.0-53.0); Hemoglobin 8.8 g/dL (13.5-17.5); IMMATURE GRAN ABSOLUTE AUTO 0.09 K/mm3 (0.00-0.10); IMMATURE GRAN PERCENT AUTO 1 % (0-1); LYMPHOCYTES ABSOLUTE AUTO 1.55 K/mm3 (0.84-5.20); LYMPHOCYTES PERCENT AUTO 17 % (21-46); MONOCYTES ABSOLUTE AUTO 1.23 K/mm3 (0.16-1.47); MONOCYTES PERCENT AUTO 13 % (4-13); Mean Corpuscular HGB 30.4 pg (26.0-34.0); Mean Corpuscular HGB Conc 31.2 g/dL (31.5-36.5); Mean Corpuscular Volume 98 fL (80-100); NEUTROPHILS ABSOLUTE AUTO 6.19 K/mm3 (1.96-9.15); NEUTROPHILS PERCENT AUTO 66 % (41-73); RDW Coefficient Variation 17.5 % (11.7-14.2); RDW Standard Deviation 58.5 fL (35.1-46.3); Red Blood Cell Count 2.89 M/mm3 (4.30-5.90); White Blood Cell Count 9.33 K/mm3 (4.00-11.30)
[2020-04-14 03:42] LABS: Mean Platelet Volume 10.4 fL (9.1-12.4); Platelet Count 122 K/mm3 (150-400)
[2020-04-14 03:47] LABS: Anion Gap 6 mmol/L (6-16); Blood Urea Nitrogen 11 mg/dL (8-24); Bun/Creatinine Ratio 11.9 (12.0-20.0); CO2, Blood 26 mmol/L (21-32); Calcium, Blood 7.8 mg/dL (8.5-10.1); Chloride, Blood 112 mmol/L (98-108); Creatinine, Blood 0.93 mg/dL (0.60-1.20); Glomerular Filtration Rate >60 (60-); Glucose, Blood 137 mg/dL (70-99); Potassium, Blood 3.4 mmol/L (3.5-5.5); Sodium, Blood 144 mmol/L (136-145)
--- NOTE | 2020-04-14 05:50 | NUR ---
END OF SHIFT SUMMARY PATIENT CONTINUES TO HAVE CIWA SCORES BETWEEN 13-20. LIBRIUM GIVEN PER ORDER. PATIENT MOVES ALL EXTREMTIES EQUALLY AND IS ABLE TO FOLLOW COMMANDS. CONTINUES TO BE RESTLESS AND PULL AT LINES INTERMITTENTLY. ORIENTED ONLY TO PERSON AT THIS TIME. BEDSIDE THERMO PROCESSOR SHOWS A V-PACED RHYTHM. BLOOD PRESSURE REMAINED STABLE OVERNIGHT. LUNGS CLEAR AND DIM. OXYGEN SATURATION STABLE ON 2 L NC. ABDOMEN MILDLY DISTENDED/ROUNDED. ADVANCING DIET TOLERATED. KEARNEY CATHETER IN PLACE WITH ADEQUATE URINE OUTPUT. PIV X [address] IV MAINTENANCE FLUIDS INFUSING AT 100 MLS/HR. BED ALARM ON AND CURAIN OPEN FOR VISIBILITY FOR SAFETY.
--- NOTE | 2020-04-14 07:05 | NUR ---
ASSUMED CARE: RECEIVED REPORT FROM YENNY RN. PT APPEARS TO BE SLEEPING UPON ENTERING THE ROOM. LR @ 100ML/HR NOTED TO BE RUNNING. REPORT OF PT HAVING A COUGHING ISSUE AFTER RECEIVING PO MEDS. WILL REASSESS SWALLOW PRIORT TO ANY PO MEDS OR MEALS. NO ACUTE DISTRESS NOTED.
--- NOTE | 2020-04-14 11:55 | NUR ---
[place] of Care: Care assumed at 0900hr from Gloria URBAN. Patient sleeping, but rouses easily to verbal stimuli. At assumption of care, speech is mumbled and very difficulty to understand. Patient calm, and cooperative with staff, following simple commands, but appears to be confused to place and reason for admission. At this time, patient more alert and speech more clear. Now able to voice full sentences, oriented to self and place, but remains confused to reason for admission. Peripheral IV x1 to rt upper noted to be leaking fluids. Power-glide placed to lt upper arm by Ramona URBAN, and peripheral IV to rt upper arm removed. Dill cath in place, draining clear yellow urine. Patient asking for food at this time, but reported from NOC shift RN that patient possible aspirated yesterday when given pills with pudding. ST eval ordered at this time, will wait for ST eval before giving patient PO food/fluids. Will continue to monitor.
--- NOTE | 2020-04-14 18:03 | NUR ---
Shift Summary: No significant changes throughout shift. VS remain stable, spO2 95-96% on RA. Continues to deny pain, discomfort, SOB, or dyspnea. Patient remains confused, but becoming more alert throughout shift. No prn medications given. Often thinks he is at home, and occasionally attempts to get out of bed without assistance, otherwise calm and cooperative with staff. Kept patient NPO as speech remains slightly slurred, concern for aspiration, awaiting ST eval. Out of bed to recliner (with PT and OT), for approx 3hr. Power-glide to lt upper arm remains patent and intact. Dill cath remains patent and intact, draining clear yellow urine. Sleeping at this time. Will continue to monitor until report to NOC shift RN.
--- NOTE | 2020-04-14 21:13 | NUR ---
ASSUMING CARE- 1930 PATIENT IS CURRENTLY RESTING IN BED. OPENS EYES TO VERBAL STIMULATION. ANSWERS SOME QUESTIONS APPROPRIATELY. SPEECH IS GARBLED AT TIMES. MOVING ALL EXTREMITIES AND PICKING AT LINES. PATIENT IS ORIENTED TO ONLY PERSON. BEDSIDE BIOTECHNOLOGIST SHOWS A VENTRICULARLY PACED RHYTHM. BP STABLE. POWERGLIDE IN THE LEFT UPPER ARM IS INFUSING LR CURRENTLY. DRESSING IS CDI. KEARNEY CATHETER IS PATENT. CALL LIGHT IS WITHIN REACH. BED ALARM ON. CURTAIN OPEN FOR VISIBILITY.
--- NOTE | 2020-04-15 05:45 | NUR ---
END OF SHIFT SUMMARY PATIENT IS MORE ALERT THIS SHIFT, BUT REMAINS ALTERED. HE IS SLOW TO RESPOND AND HAS GARBLED SPEECH AT TIMES. THIS RESOLVES WHEN HE IS MORE ALERT. PERRL. JOSEPH. REMAINS CONFUSED AND DISORIENTED. MILD TREMORS. CONTINUES TO PULL AT LINES BUT IS REDIRECTABLE BUT FORGETFUL. INCREASING STRENGTH AND ABILITY TO REPOSITION SELF IN BED. V-PACED. VITAL SIGNS STABLE. TOLERATING ROOM AIR WHILE AWAKE. LUNGS CLEAR AND DIM. CURRENTLY NPO. AWAITING EVALUATION FROM SPEECH THERAPY. BOWEL TONES ARE HYPOACTIVE. BM X 2 THIS SHIFT. KEARNEY CATHETER IN PLACE WITH ADEQUATE URINE OUTPUT. DRY FRAGILE SKIN WITH SCATTERED AREAS OF BRUISING. POWERGLIDE IN PLACE IN THE LEFT UPPER ARM.
--- NOTE | 2020-04-15 07:58 | NUR ---
ASSUMED CARE REPORT RECEIVED FROM WILMAR BUCKNER. PT RESTING IN BED, ALERT. PT ANSWERS ALL ORIENTATION QUESTIONS APPROPRIATELY, NOWS IT IS APRIL 2020, BUT WHEN CONVERSING WITH HIM PT IS ACTUALLY QUITE CONFUSED. HE IS COMPLAINING ABOUT HAVING TO BE IN THE HOSPITAL, ESPECIALLY WHEN HE WAS HELD HOSTAGE FOR 8 DAYS BEFORE BEING IN HERE HE SAYS. HE ALSO STATES HE FELL OFF A [facility] IN [place] RIGHT BEFORE HE CAME IN, BUT WHEN QUESTIONED HOW HE GOT TO [place] FROM THAT HE JUST STATES HE CALLED FOR HELP AND THEY BROUGHT HIM HERE. GOT PT UP TO CHAIR FOR SPEECH THERAPY EVAL. PT REQUIRED ASSISTANCE GETTING TO EOB, WHEN HE STOOD HE WOULD NOT STRAIGHTEN UP AND HAD DIFFICULTY FOLLOWING DIRECTIONS TO TAKE A STEP BACK TO BE ABLE TO SIT DOWN. PHYSICAL THERAPY IS ORDERED FOR PT. PT STATES HE HAS NO HELP AT HOME, BUT HE HAS BEEN FEELING LIKE HE NEEDS IT. SPEECH THERAPIST WORKING WITH PT CURRENTLY. CONTINUE TO MONITOR.
--- NOTE | 2020-04-15 12:36 | NUR ---
REASSESSMENT PT HAS CONTINUED TO BE ALERT, BUT CONFUSED IN HIS CONVERSATIONS. HE KNOWS THE MONTH AND YEAR, BUT DOESN'T SEEM TO HAVE A SENSE OF TIME, THINKING HE HAS BEEN HERE FOR OVER A MONTH. LOTS OF REORIENTATION PROVIDED, BUT PT JUST CHUCKLES AT IT MOSTLY. LUNGS ARE CLEAR, BUT PT DOES GET A LITTLE DYSPNEIC WITH ACTIVITY. HE QUICKLY RECOVERS. V-PACED, RATE BETWEEN 90 AND LOW 1TEENS. SPEECH THERAPY SAW HIM AND CLEARED HIM FOR A DIET AND PT IS EATING WELL. HE WORKED WITH PHYSICAL THERAPY AND ALSO GOT UP TO COMMODE FOR A BM. HE IS APPEARING MORE TIRED NOW, SLUMPING IN THE CHAIR AND MUMBLING MORE SO WILL GET BACK TO BED. CONTINUING TO MONITOR.
--- NOTE | 2020-04-15 14:30 | NUR ---
TRANSFER PT TRANSFERRED TO 336 VIA BED WITH AIDE. REPORT CALLED TO WLIMAR CASTANEDA. ALL BELONGINGS TRANSFERRED WITH PT.
--- NOTE | 2020-04-15 14:50 | NUR ---
PATIENT TRANSFERRED FROM ICU 7 TO ROOM 336, REPORTS RECEIVED FROM PATRICIA. PATIENT REQUIRING 2LO2 TO MAINTAIN SATS ABOVE 90% WHILE ASLEEP, RA WHILE AWAKE. MEPILEX TO COCCYX FOR PROTECTION PURPOSES ONLY. PATIENT ORIENTED TO SELF AND PLACE, OTHERWISR SEEMS CONFUSED ABOUT THE SITUATION AND THE CHANGING OF ROOMS. WORKED WITH PT THIS AM AND WAS A 2 ASSIST WITH A FWW. CIWA OF 4 THIS AFTERNOON. PATIENT DENIES ANY PAIN. KEARNEY TO GRAVITY, PATENT AND DRAINING CLEAR YELLOW URINE. LR AT 100ML/HR, TO BE DC'D AFTER THIS BAG. TOLERATING DIET. ACHS BLOOD SUGARS. FALL PRECAUTIONS IN PLACE PER UNIT PROTOCOL.
--- NOTE | 2020-04-15 16:42 | NUR ---
PATIENT BECAME VERY CONFUSED, UPSET WITH STAFF BECAUSE HE BELEIVES WE TOOK HIM OUT OF THE HOSPITAL. CIWA OF 10, 50MG OF LIBRIUM GIVEN TO TREAT. PATIENT PULLED OUT HIS POWERGLIDE. DR. BENITEZ CONTACTED AND CHANGED ATIVAN TO PO AND SAID IT WAS FINE TO LEAVE IV OUT LONG PATIENT IS EATING AND DRINKING WELL. CHARGE NURSE NOTIFIED AND PATIENT WILL BE MOVING TO THE SCU WHEN BED AVAILABLE TO BETTER MONITOR HIM.
--- NOTE | 2020-04-16 04:13 | NUR ---
SHIFT SUMMARY PT VERY LETHARGIC AT START OF SHIFT. WOULD WAKE AND ANSWER SIMPLE QUESTIONS BUT WOULD QUICKLY FALL BACK ASLEEP. LATER IN SHIFT PT WOKE MORE AND REQUESTED TO GET UP TO THE RESTROOM. SAT PT AT SIDE OF BED. PT WAS TOO WEAK TO STAND. PT ASSISTED BACK INTO BED AND PLACED ON THE BEDPAN. PT HAD A SMALL DARK WATERY STOOL IN BEDPAN. PT WITH SOME SLURRED SPEECH ONCE MORE AWAKE. CONTINUED TO BE VERY WEAK AND TIRED EVEN ONCE MORE AWAKE. KEARNEY CATHETER IN PLACE, PATENT AND DRAINING. ABD DISTENDED BUT SOFT AND DOES NOT APPEAR TO BE TENDER. PT HAS DENIED ANY PAIN. CIWA SCORES DONE SEVERAL TIMES, ONLY COMING UP 4 THIS EVENING DUE TO DISORIENTATION. VITAL SIGNS STABLE. PT SLEEPING AGAIN AT THIS TIME. WILL CONTINUE TO MONITOR.
[2020-04-16 05:18] LABS: Hematocrit 28.8 % (37.0-53.0); Hemoglobin 8.9 g/dL (13.5-17.5)
--- NOTE | 2020-04-16 15:16 | NUR ---
SPOKE WITH MICHAEL LOZANO #([phone]) FROM [facility] OFFICE. SHE STATES THAT SHE WILL BE IN TOMORROW TO VISIT THE PATIENT AND WOULD LIKE TO WORK WITH THE CARE MANAGERS IN THE DISCHARGE PLANNING PROCESS.
--- NOTE | 2020-04-16 17:16 | NUR ---
PATIENT LETHARGIC AND DIFFICULT TO WAKE AT TIMES THIS SHIFT. ORIENTED TO SELF AND SOMETIMES PLACE AND SITUTATION. UP TO CHAIR FOR MEALS TODAY WITH A 2 MAX ASSIST PIVOT TRANSFER. PATIENT REQUIRES ASSISTANCE WITH MEALS. VSS, ON 2LO2 TO MAINTAIN SATS. ABLE TO TAKE PILLS WHOLE WITH APPLESAUCE. TOO DROWSY AT TIMES TODAY TO GIVE SOME OF HIS MEDS. NO IV SITE, ENCOURAGING PATIENT TO DRINK FLUIDS. KEARNEY TO GRAVITY, PATIENT STRAIGHT CATHS AT HOME. FALL PRECAUTIONS IN PLACE PER UNIT PROTOCOL. REPORTS SOME BACK PAIN, RELIEVED WITH REPOSITIONING. SPOKE WITH MICHAEL FROM [facility] OFFICE WHO WOULD LIKE TO BE INVOLVED WITH DISCHARGE PLANNING. PREVIOUS NOTE WITH HER PHONE NUMBER.
[2020-04-17 05:34] LABS: Hemoglobin 8.5 g/dL (13.5-17.5)
[2020-04-17 05:58] LABS: Anion Gap 5 mmol/L (6-16); Blood Urea Nitrogen 8 mg/dL (8-24); Bun/Creatinine Ratio 8.4 (12.0-20.0); CO2, Blood 29 mmol/L (21-32); Calcium, Blood 8.3 mg/dL (8.5-10.1); Chloride, Blood 111 mmol/L (98-108); Creatinine, Blood 0.95 mg/dL (0.60-1.20); Glomerular Filtration Rate >60 (60-); Glucose, Blood 146 mg/dL (70-99); Potassium, Blood 2.5 mmol/L (3.5-5.5); Sodium, Blood 145 mmol/L (136-145)
--- NOTE | 2020-04-17 06:20 | NUR ---
SHIFT SUMMARY- PT. ALERT TO SELF WITH CONFUSION AND VISUAL/AUDITORY HALLUCINATIONS. NO ACUTE CHANGES OVERNIGHT. SLEPT MOST OF THE SHIFT, NO APPARENT DISTRESS NOTED. DENIED ANY PAIN. REPOSITIONED PRN AND FOR COMFORT. KEARNEY CATHETER PATENT AND DRAINING. HELD AM DOSE OF PROTONIX. PT. SLEEPING DEEPLY, BUT AROUSABLE. CALL LIGHT WITHIN REACH, SIDE RAILS UPX3, AND BED ALARM ON FOR SAFETY. WILL CONT TO MONITOR.
[2020-04-17 12:32] LABS: Magnesium, Blood 2.2 mg/dL (1.6-2.4); Potassium, Blood 2.8 mmol/L (3.5-5.5)
--- NOTE | 2020-04-17 20:39 | NUR ---
SHIFT SUMMARY- PT ALERT AND ORIENTED. 2P (HEAVY) MAX ASSIST FOR TRANSFERS. PT ORIENTED TO SELF AND FAMILY. PT HAS NO REAL CONCEPT OF HIS CURRENT ABILITIES. HE REFUSED SNF PLACEMENT TODAY. STAFF HAVE REITTERATED HE CURRENTLY CAN NOT PHYSICALLY GO HOME IT IS NOT SAFE FOR HIM TO DO SO. PT STATED HE CAN GET UP AND TAKE CARE OF HIMSELF. SINCE THAT CONVERSATION THE PT HAS BEEN FOUND TO HAVE ONE FOOT OR THE OTHER HANGING OUT OF BED ON CARE ROUNDING. PT HAS ASP PRECAUTIONS LISTED ON THE BOARD MEDS WHOLE IN [employer]. PT IN BED CALL LIGHT IN REACH NO S&S OF DISTRESS, BEDSIDE REPORT COMPLETED. CALLED CARE MANAGEMENT WHEN HIS LONG TIME FRIEND AND MARTITA BRAXTON REP CAME IN SHE WANTS TO TRY TO FACILITATE A SAFE DISCHARGE, HAD HER PUT HER PHONE NIUMBER ON THE BOARD FOR STAFF TO CONTACT HER. PT DECLINED TO ALLOW CARE MANAGEMENT RN TO CALL HIS FAMILY MEMBERS BUT ASKED THE BEDSIDE RN IF WE TRIED TO CALL HER. CONTACT INFO IS ON THE BOARD.
[2020-04-18 05:01] LABS: Hematocrit 22.4 % (37.0-53.0); Hemoglobin 6.8 g/dL (13.5-17.5)
[2020-04-18 05:23] LABS: Anion Gap 5 mmol/L (6-16); Blood Urea Nitrogen 15 mg/dL (8-24); Bun/Creatinine Ratio 15.6 (12.0-20.0); CO2, Blood 28 mmol/L (21-32); Calcium, Blood 8.4 mg/dL (8.5-10.1); Chloride, Blood 114 mmol/L (98-108); Creatinine, Blood 0.96 mg/dL (0.60-1.20); Glomerular Filtration Rate >60 (60-); Glucose, Blood 165 mg/dL (70-99); Potassium, Blood 3.1 mmol/L (3.5-5.5); Sodium, Blood 147 mmol/L (136-145)
--- NOTE | 2020-04-18 07:47 | NUR ---
pt alert to self, confused. mumbles. no iv access order. last v/s 99/60 h/r 97. h/h dropping. spoke to dr aiken. stat h/h ordered. place iv now. rechecking vs
--- NOTE | 2020-04-18 07:48 | NUR ---
SHIFT SUMMARY PATIENT ALERT AND ORIENTED ONLY TO SELF, WAS CONFUSED, AND WAS INCREASINGLY LETHARGIC OVERNIGHT. PATIENT WOULD FREQUENTLY TRY TO SIT UP AND GET OUT OF BED AND SET OFF HIS BED ALARM. IT WAS NOTED THAT HIS H&H HAD DROPPED AND HIS BLOOD PRESSURE WAS A LITTLE LOW. CONCERNS PASSED ON TO DAY SHIFT NURSE. BED IN LOWEST POSITION WITH WHEELS LOCKED AND ALARM ON. CALL LIGHT WITHIN REACH. REPORT GIVEN TO ONCOMING RN.
--- NOTE | 2020-04-18 08:54 | NUR ---
DISCUSSED PT DIAPHORETIC, VS, DROPPING H/R AND VS. PT LESS STABLE THAN YEST WITH DR BENITEZ. SHE CAME AND SAW PT. ORDERS FOR NEW H/H AND IV ACCESS. PT TO TRANSFER TO ICU. WE ARE ATTEMPTING TO OBTAIN IV ACCESS NOW. CALLED DORI DOZIER, JEWELRY DEPARTMENT SUPERVISOR. HE TO CALL BACK.
--- NOTE | 2020-04-18 09:15 | NUR ---
PT ALERT ORIENTED TO SELF DATE FAMILY, SOME PAIN IN BACK. MED PER EMAR. PT SOME DIAPHORETIC, VERY PALE . H/R REG, NO MURMER NOTED. NO TELE. PACER LUCW. PT STATES IS PACER/DEFIB. LUNGS CLEAR UPPER DIM MID AND LOWER. ON 2L O2. RESP EASY, SLIGHTLY LABORED. USING BELLY ACCESSORY MUSC. SOME. ABD MODERATE, NONTENDER, STATES NORMAL SIZE FOR HIM. BT X4 ALST BM LAST NITE REPORTED MUCOUSY, BROWN. NO BLOOD NOTED. VOIDS KEARNEY CATH, YELLOW FLUID DRAINING. IS BED BOUND AT THIS MOMENT. HAS BEEN 2 MAX. ASST TO CHAIR. SEEN AND IS MOVING TO ICU WHEN BED AVAIL.
[2020-04-18 09:29] LABS: Hematocrit 21.1 % (37.0-53.0); Hemoglobin 6.3 g/dL (13.5-17.5)
--- NOTE | 2020-04-18 11:00 | NUR ---
0950 PT TRANSFERED TO ICU-16 VIA BED. REPORT RECIEVED FROM MEI URBAN. ORDERS CHECKED. PT IS IN NEED OF MORE IV SITES DUE TO PRBC, PROTONIX AND KCL ORDERS. PT IS SOMEWHAT CONFUSED TO PLACE BUT IS ORIENTED TO SELF AND EASILY AROUSED. SMEAR OF STOOL IS LIGHT GREEN AND PLACED ON BEDPAN W/O ANY CURRENT RESULTS. ABD IS DISTENDED AND FIRM BUT DENIES PAIN. URINE YELLOW. LUNGS ASCULTATION REVEALS SL DIMINISHED AND BB CRACKLES WITH O2 AT 3L CURRENTLY. 1+ GENEARL EDEMA NOTED OF EXTREMETIES. IV 18G IN RAC AND WILL INQUIRE TO PICC PLACEMENT. SPOKE WITH DAUGHTER WITH DR GRANADOS FOR RX OF DUODENAL ULCER AND ORDER FOR PICC ALSO OBTAINED.
--- NOTE | 2020-04-18 18:02 | NUR ---
BLOOD TRANSFUSION X2 UNITS COMPLETE. PT VS NOTED. ONLY ONE EPISODE OF LIQUID BLACK STOOL WHILE IN ICU THIS SHIFT. PT REMAINS CONFUSED AND BED ALARM HAS BEEN ON. PT I/O NOTED WITH YELLOW URINE VIA KEARNEY. VSS NOTED. PROTONIX GTT AT 10 ML AND TKO TIMES 2 WITH BLOOD AND KCL COMPLETING. MANAGER NEW PRODUCT NOW HERE TO TAKE PT TO LAB FOR PROCEDURE. PT REMAINS V-PACED.
[2020-04-18 19:44] LABS: Hematocrit 24.8 % (37.0-53.0); Hemoglobin 7.7 g/dL (13.5-17.5)
--- NOTE | 2020-04-18 21:14 | NUR ---
ASSUMED CARE AT 1905 PT JUST RETURNED FROM SHEET [employer] SUPERVISOR. RT GROIN SITE WITH DRESSING DRY AND INTACT, NO HEMATOMA OR BLEEDING. PT DROWSY BUT CAN BE STIMULATED. PROTONIX DRIP INFUSING PER ORDER. RT UPPER ARM PICC NOTED, DRESSING INTACT. KEARNEY PATENT AND DRAINING. MONITOR SHOWS PACED RHYTHM, BP STABLE, O2 AT 2L. SEE SHIFT ASSESSMENT FOR FULL ASSESSMENT.
[2020-04-19 00:16] LABS: Hematocrit 25.4 % (37.0-53.0); Hemoglobin 7.8 g/dL (13.5-17.5)
[2020-04-19 04:33] LABS: BASOPHILS ABSOLUTE AUTO 0.02 K/mm3 (0.00-0.23); BASOPHILS PERCENT AUTO 0 % (0-2); EOSINOPHILS ABSOLUTE AUTO 0.27 K/mm3 (0.00-0.68); EOSINOPHILS PERCENT AUTO 4 % (0-6); Hematocrit 26.1 % (37.0-53.0); IMMATURE GRAN ABSOLUTE AUTO 0.13 K/mm3 (0.00-0.10); IMMATURE GRAN PERCENT AUTO 2 % (0-1); LYMPHOCYTES PERCENT AUTO 10 % (21-46); MONOCYTES ABSOLUTE AUTO 0.79 K/mm3 (0.16-1.47); MONOCYTES PERCENT AUTO 10 % (4-13); Mean Corpuscular HGB 29.7 pg (26.0-34.0); Mean Corpuscular HGB Conc 30.7 g/dL (31.5-36.5); Mean Corpuscular Volume 97 fL (80-100); Mean Platelet Volume 10.6 fL (9.1-12.4); NEUTROPHILS ABSOLUTE AUTO 5.75 K/mm3 (1.96-9.15); NEUTROPHILS PERCENT AUTO 74 % (41-73); Platelet Count 230 K/mm3 (150-400); RDW Standard Deviation 61.8 fL (35.1-46.3); Red Blood Cell Count 2.69 M/mm3 (4.30-5.90); White Blood Cell Count 7.76 K/mm3 (4.00-11.30)
[2020-04-19 04:52] LABS: Anion Gap 2 mmol/L (6-16); Blood Urea Nitrogen 13 mg/dL (8-24); Bun/Creatinine Ratio 16.2 (12.0-20.0); CO2, Blood 30 mmol/L (21-32); Calcium, Blood 8.2 mg/dL (8.5-10.1); Chloride, Blood 116 mmol/L (98-108); Glomerular Filtration Rate >60 (60-); Glucose, Blood 143 mg/dL (70-99); Potassium, Blood 3.4 mmol/L (3.5-5.5); Sodium, Blood 148 mmol/L (136-145)
--- NOTE | 2020-04-19 06:07 | NUR ---
END OF SHIFT SUMMARY NO ACUTE CHANGES. LESS CONFUSED CONVERSATION NOTED. DENIES PAIN OR NAUSEA. VS STABLE. PROTONIX DRIP CONT. KEARNEY PATENT AND DRAINING TO GRAVITY. INCONTINENT X2 WITH LOOSE BLACK STOOL. BED ALARM IS ON. WILL REPORT TO ONCOMING RN WHEN AVAILABLE.
--- NOTE | 2020-04-19 07:28 | NUR ---
PT AWAKE IN BED, MILDLY CONFUSED, ABLE TO ANSWER QUESTIONS APPROPRIATELY, FOLLOWS COMMANDS. PT'S MOOD LABILE, HAPPY, LAUGHING, THEN IRRITABLE ABOUT NOT EATING/DRINKING; STATES HE WILL GO AMA IF HE CANT EAT TODAY. VSS, PT PACED, 2 BLACK STOOLS REPORTED BY NOCT RN.
--- NOTE | 2020-04-19 07:57 | NUR ---
DR JIN CALLED ABOUT DIET STATUS, AWAITING ANSWER/ORDERS. PT DENIES C/O NAUSEA, PAIN. ABD DISTENDED, SOFT, NON-TENDER WITH TYMPANIC BT'S. PT ORIENTED TO YEAR AND STATES HE IS IN A "HOSPITAL", CAN NOT STATE CITY OR DAY BUT KNOW'S ITS APR 2020.
--- NOTE | 2020-04-19 08:45 | NUR ---
DR SIMON IN TO SEE PT. NO NEW ORDERS. PT TOLERATING CLEAR LIQUID TRAY.
--- NOTE | 2020-04-19 10:52 | NUR ---
ASSUMED PATIENT CARE. PATIENT TRANSFERED FROM ICU VIA BED, NO SIGNS OF ACUTE DISTRESS, WCTM.
--- NOTE | 2020-04-19 10:54 | NUR ---
PT TRANSFERED TO U 16 IN STABLE CONDITION
--- NOTE | 2020-04-19 17:00 | NUR ---
NO ACUTE EVENTS THIS SHIFT. PATIENT TRANSFERED FROM ICU THIS SHIFT, VSS. H & H REMAINED LOW. PATIENT ORIENTED TO SELF ONLY. PATIENT HAD LIQUID BOWEL MOVEMENT THIS SHIFT, BROWN STOOL NOTED. PROTONIX DRIP CONTINUED. PO ABX FOR UTI, HISTORY OF SELF-CATHETERIZATOIN, KEARNEY CONTINUED. PATIENT WORKED WITH PT/OT TODAY, TOLERATED WELL. PATIENT CONFUSED, PULLING AT LINES AT TIMES, EASILY REDIRECTABLE.
--- NOTE | 2020-04-20 04:55 | NUR ---
END OF SHIFT SUMMARY NO ACUTE CHANGES THIS SHIFT. VSS. SPO2 >92% ON RA. PT ON CLEAR LIQUID DIET, C/O OF WANTING TO EAT. PT ENJOYED JELLO THIS SHIFT. PT IS MILDLY CONFUSED, ORIENTED TO SELF. EASILY REDIRECTABLE AND PLEASANT. 100% PACED. HR IN 80'S. R GROIN SITE WNL. NO BLEEDING, NO HEMATOMA. PICC LINE IN R ARM, SITE WNL. KEARNEY CATHETER DRAINING TO GRAVITY WITH CLEAR YELLOW URINE. Q2H TURNS. PT HAS PROTONIX RUNNING CONTINUOSLY. CALL LIGHT WITHIN REACH. WILL CONTINUE TO MONITOR UNTIL END OF SHIFT.
[2020-04-20 10:35] LABS: Hematocrit 25.2 % (37.0-53.0); Hemoglobin 7.8 g/dL (13.5-17.5)
--- NOTE | 2020-04-20 16:38 | NUR ---
SHIFT NOTE PT HAS BEEN A/O X2 TODAY, HE INTERMITTENLY IS AWARE OF THE TOWN HE IS IN, AWARE OF THE BUILDING HE IS IN, AND AWARE OF WHO HE IS. PT CAN NOT RECALL HIS BIRTHDAY, HIS BORTHDAY WAS CONFIRMED VIA HIS PHOTO ID IN HIS WALLET. PT HAS BEEN CALM AND COOPERATIVE FOR MOST OF THE DAY, DURING THE EVEN BLOOD SUGAR CHECK PT BEGAN CURSING AT THIS RN R/T HIS DIET ORDER. PT HAS ATTEMPTED TO EXIT BED A FEW TIMES TODAY, BED ALARM IS ACTIVE. KEARNEY REMAINS DRAINING TO GRAVITY. RT GROIN POST OP SITE WAS REDRESSED AT THE BEGINING OF THE SHIFT WITH GAUZE AND OPSITE. THE SKIN AROUND GROIN SITE IS SOFT, WITH NO DRAINAGE
[2020-04-20 16:48] LABS: Hematocrit 24.8 % (37.0-53.0); Hemoglobin 7.6 g/dL (13.5-17.5)
[2020-04-21 04:34] LABS: Hemoglobin 7.7 g/dL (13.5-17.5)
[2020-04-21 04:47] LABS: Anion Gap 3 mmol/L (6-16); Blood Urea Nitrogen 8 mg/dL (8-24); Bun/Creatinine Ratio 10.1 (12.0-20.0); CO2, Blood 30 mmol/L (21-32); Chloride, Blood 111 mmol/L (98-108); Creatinine, Blood 0.79 mg/dL (0.60-1.20); Glomerular Filtration Rate >60 (60-); Glucose, Blood 132 mg/dL (70-99); Phosphorus, Blood 3.3 mg/dL (2.5-4.9); Sodium, Blood 144 mmol/L (136-145)
--- NOTE | 2020-04-21 05:38 | NUR ---
END OF SHIFT SUMMARY VSS. SPO2 >92% ON RA. 100% PACED HR 70'S VIA TELEMETRY. PT WAS LETHARGIC AND DIFFICULT TO AROUSE AT BEGINNING OF SHIFT. SAT PT UP IN BED, TURNED ON LIGHTS, TO HELP AWAKEN HIM. HE WAS ABLE TO TAKE HIS ORAL MEDS WITH APPLESAUCE. PT CONTINUED TO BECOME MORE INTERACTIVE T/O THE NIGHT. A&O X2. PT STATED HIS NAME AND THIS CITY, BUT DID NOT KNOW HE IS AT [facility]. PT C/O OF NOT BEING ABLE TO EAT SOLID FOOD. KEARNEY DRAINING TO GRAVITY. Q2H TURNS. PICC LINE IN RIGHT ARM, SITE WNL. DRAWS NICELY, CAPS CHANGED THIS SHIFT. CALL LIGHT WITHIN REACH. WILL CONTINUE TO MONITOR UNTIL END OF SHIFT.
--- NOTE | 2020-04-21 11:52 | NUR ---
SPOKE WITH SPEECH THERAPIST, SHE AGREES THAT ADVACING PT TO FULL LIQUID DIET WOULD BE APPROPRIATE. ST WILL BE IN TOMORROW TO REASSESS PT AND CONTINUE ADVACING DIET
--- NOTE | 2020-04-21 17:24 | NUR ---
REPORT CALLED TO MEI URBAN ON MEDICAL FLOOR
--- NOTE | 2020-04-21 17:40 | NUR ---
PT SETTLED TO ROOM. BED IN LOW POSITION, CALL LITE IN REACH, BED ALARM ONFOR SAFETY
--- NOTE | 2020-04-21 18:35 | NUR ---
PT PLEASANT. ANSWERS QUESTIONS. SETTLED TO BED FROM TRANSFER. PT EATING DINNER IN BED SITTING UP . DENIES PAIN. NO NEW CONCERNS AT THIS TIME. BED INLOW POSITION, ARUN LITE IN REACH, BED ALARN ON FOR SAFETY
--- NOTE | 2020-04-21 19:15 | NUR ---
ASSUMED CARE RECEIVED REPORT FROM WILMAR HURLEY. PT ASLEEP AT THIS TIME, APPEARS COMFORTABLE. RESPS EVEN AND UNLABORED. VSS. CALL LIGHT, POSSESSIONS IN REACH, BED ALARM ON. WILL CONTINUE TO MONITOR.
--- NOTE | 2020-04-22 04:22 | NUR ---
SHIFT SUMMARY PT HAS HAD NO ACUTE CHANGES IN CONDITION T/O NIGHT, WAS MONITORED EVERY 1-2 HOURS WITH NEEDS MET. VS STABLE, RESPS EVEN AND UNLABORED. WAS UP OFF AND ON, INCREASINGLY CONFUSED AT TIMES, BUT EASILY RE-DIRECTED. TOLERATING FULL LIQUID DIET WELL, NO S/S ASPIRATION NOTED. AM LABS PENDING RESULTS. PT DENIES NEEDS AT THIS TIME. CALL LIGHT, POSSESSIONS IN REACH, BED IN LOWEST POSITION WITH ALARMS ON. WILL CONTINUE TO MONITOR AND PROVIDE CARE NEEDED UNTIL DAY RN ASSUMES CARE.
[2020-04-22 05:32] LABS: Hemoglobin 7.7 g/dL (13.5-17.5); Mean Corpuscular HGB 30.1 pg (26.0-34.0); Mean Corpuscular HGB Conc 30.8 g/dL (31.5-36.5); Mean Corpuscular Volume 98 fL (80-100); Mean Platelet Volume 11.4 fL (9.1-12.4); Platelet Count 217 K/mm3 (150-400); RDW Coefficient Variation 17.2 % (11.7-14.2); RDW Standard Deviation 58.5 fL (35.1-46.3); Red Blood Cell Count 2.56 M/mm3 (4.30-5.90); White Blood Cell Count 5.62 K/mm3 (4.00-11.30)
[2020-04-22 06:03] LABS: Albumin, Blood 2.1 g/dL (3.4-5.0); Anion Gap 5 mmol/L (6-16); Blood Urea Nitrogen 6 mg/dL (8-24); Bun/Creatinine Ratio 7.8 (12.0-20.0); CO2, Blood 29 mmol/L (21-32); Calcium, Blood 8.4 mg/dL (8.5-10.1); Chloride, Blood 110 mmol/L (98-108); Creatinine, Blood 0.77 mg/dL (0.60-1.20); Glomerular Filtration Rate >60 (60-); Glucose, Blood 138 mg/dL (70-99); Phosphorus, Blood 3.1 mg/dL (2.5-4.9); Potassium, Blood 3.2 mmol/L (3.5-5.5); Sodium, Blood 144 mmol/L (136-145)
--- NOTE | 2020-04-22 12:07 | NUR ---
PT TO IMAGINING FOR SMALL BOWEL FOLLOW THROUGH STUDY
--- NOTE | 2020-04-22 14:44 | NUR ---
PT BACK FROM IMAGINING. RESTING IN ROOM. WILL REMAIN NPO FOR 2 MORE HOURS, ANOTHER IMAGE IS NEEDED FOR THE SMALL BOWEL FOLLOW THROUGH. TODAYS MEDICATION HELD DUE TO NPO STATUS AND PT TAKES PILLS WITH APPLESAUCE. VSS THIS MORNING AND THIS AFTERNOON.
--- NOTE | 2020-04-22 16:25 | NUR ---
PT TRANSPORTED TO IMAGINING.
--- NOTE | 2020-04-22 17:21 | NUR ---
SHIFT SUMMARY PT IS BACK IN ROOM FROM IMAGAINING. PT IS STILL NPO WAITING FOR IMAGINING TO COME AND TAKE ONE MORE IMAGE TO COMPLETE THE SMALL BOWEL FOLLOW THROUGH STUDY. PT HAS BEEN REQUESTING FOOD AND DRINK ALL SHIFT AND HAS BEEN INFORMED OF NPO STATUS. PT IS NOT HAPPY ABOUT STATUS BUT ACCEPTS IT. AFTER RETURNING FROM IMAGING THE FIRST TIME PT HAS SOME TREMMORS IN ARMS AND HAND. PT TEMPERTURE AND CBG CHECKED BOTH IN NORMAL RANG. PT RECEIVED A WARM BLANKET AND HEAT IN ROOM TURNED UP. PT IS A&OX3 AND HAS HAD SOME CONFUSION DURING SHIFT. PT CURENTLY IN ROOM WATCHING TV AND CALL LIGHT WITHIN REACH.
--- NOTE | 2020-04-22 18:45 | NUR ---
PT TRANSFERED TO IMAGNINING FOR FINAL IMAGE FOR SMALL BOWEL FOLLOW THROUGH. PT POTASSIUM CHLORIDE PUT ON STANDBY AND WILL BE RECONNECTED WHEN PT RETURNS TO ROOM.
--- NOTE | 2020-04-22 19:15 | NUR ---
ASSUMED CARE PT RETURNED TO FLOOR FROM IMAGING FOR BOWEL FOLLOW THROUGH STUDY. PT TRANSFERRED FROM [facility] TO BED, INITIAL BAG OF KCL IVPB RESTARTED ON RETURN. SHOWING NO S/S ACUTE DISTRESS AT THIS TIME. SET-UP DINNER TRAY WITH FULL LIQUID DIET FOR PT. DENIES OTHER NEEDS AT THIS TIME. CALL LIGHT, POSSESSIONS IN REACH. WILL CONTINUE TO MONITOR.
--- NOTE | 2020-04-23 04:30 | NUR ---
SHIFT SUMMARY PT HAS HAD NO ACUTE CHANGES IN STATUS T/O NIGHT. HAD XL BROWN LIQUID STOOL X1 AND SMALL BROWN STOOL X1. NO N/V, NO C/O PAIN. PT SLEPT ON AND OFF T/O NIGHT. VSS. AM LABS PENDING. DENIES NEEDS AT THIS TIME. CALL LIGHT, POSSESSIONS IN REACH, BED IN LOWEST POSITION WITH ALARMS ON. WILL CONTINUE TO MONITOR AND PROVIDE CARE UNTIL DAY ASSUMES CARE.
[2020-04-23 05:32] LABS: Hematocrit 26.4 % (37.0-53.0)
[2020-04-23 05:59] LABS: Albumin, Blood 2.2 g/dL (3.4-5.0); Anion Gap 4 mmol/L (6-16); Blood Urea Nitrogen 5 mg/dL (8-24); CO2, Blood 30 mmol/L (21-32); Calcium, Blood 8.6 mg/dL (8.5-10.1); Chloride, Blood 112 mmol/L (98-108); Creatinine, Blood 0.83 mg/dL (0.60-1.20); Glomerular Filtration Rate >60 (60-); Glucose, Blood 143 mg/dL (70-99); Phosphorus, Blood 2.6 mg/dL (2.5-4.9); Potassium, Blood 3.8 mmol/L (3.5-5.5); Sodium, Blood 146 mmol/L (136-145)
--- NOTE | 2020-04-23 17:35 | NUR ---
SHIFT SUMMARY. PT CONTINUES WITH SEVERAL LIQUID BLACK STOOLS THIS SHIFT, STOOL VOLUME HAS DECREASED COMPARED TO YESTERDAY EVENING. GOOD FLUID AND MEAL INTAKE. PT DENIES PAIN, SOB, N/V. PT WITH INTERMITTENT CONFUSION, EASILY REORIENTS, COOPERATIVE WITH CARE. NO NEW CHANGES OR CONCERNS.
--- NOTE | 2020-04-23 19:08 | NUR ---
ASSUMED CARE RECEIVED AN UPDATED REPORT FROM WILMAR DICKSON. ASSUMED CARE OF PT. PT RESTING COMFORTABLY AT THIS TIME, NO S/S ACUTE DISTRESS NOTED. DENIES NEEDS AT THIS TIME. CALL LIGHT, POSSESSIONS IN REACH, BED IN LOWEST POSITION WITH ALARMS ON. WILL CONTINUE TO MONITOR.
[2020-04-24 05:19] LABS: Hematocrit 24.6 % (37.0-53.0); Hemoglobin 7.4 g/dL (13.5-17.5)
[2020-04-24 05:46] LABS: Albumin, Blood 2.1 g/dL (3.4-5.0); Anion Gap 5 mmol/L (6-16); Blood Urea Nitrogen 4 mg/dL (8-24); Bun/Creatinine Ratio 4.7 (12.0-20.0); CO2, Blood 30 mmol/L (21-32); Calcium, Blood 8.5 mg/dL (8.5-10.1); Chloride, Blood 107 mmol/L (98-108); Creatinine, Blood 0.84 mg/dL (0.60-1.20); Glomerular Filtration Rate >60 (60-); Glucose, Blood 137 mg/dL (70-99); Phosphorus, Blood 3.3 mg/dL (2.5-4.9); Potassium, Blood 3.7 mmol/L (3.5-5.5); Sodium, Blood 142 mmol/L (136-145)
--- NOTE | 2020-04-24 05:52 | NUR ---
SHIFT SUMMARY PT RESTING COMFORTABLY AT THIS TIME, HAS HAD NO ACUTE EVENTS OVERNIGHT. VSS, LABS STABLE. PT TOLERATING FULL LIQUID DIET WELL, NO N/V. ABD MALACHI, BS PRESENT. WAS MONITORED EVERY 1-2 HOURS WITH NEEDS MET. CALL LIGHT, POSSESSIONS IN REACH, BED IN LOWEST POSITION WITH ALARMS ON. WILL CONTINUE TO MONITOR AND PROVIDE CARE NEEDED UNTIL DAY RN ASSUMES CARE.
[2020-04-24 09:38] LABS: Hematocrit 27.7 % (37.0-53.0); Hemoglobin 8.2 g/dL (13.5-17.5)
[2020-04-24] MEDS ORDERED: FOLI1 PO (16:26)
[2020-04-24] MEDS ORDERED: CEFU500T30 PO (16:26)
[2020-04-24] MEDS ORDERED: PANT40 PO (16:27)
[2020-04-24] MEDS ORDERED: LIDO700A20 TOP (16:27)
[2020-04-24] MEDS ORDERED: B-1100 M1 PO (16:29)
[2020-04-24] MEDS ORDERED: [UNRECOGNIZED DRUG - OTHER] PO (16:30)
--- NOTE | 2020-04-24 17:34 | NUR ---
SHIFT SUMMARY. 1710 PT DISCHARGED TO [facility] VIA W/C TRANSPORT. PICC LINE REMOVED BY CN PRIOR TO D/C. KEARNEY IN PLACE AND DRAINING. BELONGINGS WITH PT INCLUDING WALLET, CAR MENJIVAR, CELL PHONE AND KISS MIXER, AND GLASSES. PT DRESSED IN HOME CLOTHES AND SHOES. PO PROTONIX GIVEN PRIOR TO D/C. MINIMAL BLACK STOOLS TODAY COMPARED TO YESTERDAY. [address] YARELI
== END 2020-04-24 17:10 | disposition home or self-care (01) | DRG 853 ==
LOC: ER 12:20 → MEDS 17:42 → ICUE 17:42 → ICUW 17:42 → ICUE 20:56 → MEDS 04-15 14:30 → ICUW 04-18 10:02 → PCU 04-19 10:37 → MEDS 04-21 17:34
PROVIDERS: Internal Medicine; Nurse Practitioner Acute Care; Physician Assistant; Student in an Organized Health Care Education/Training Program; ADMIT Family Medicine
PROC: 0DB68ZX Excision of Stomach, Via Natural or Artificial Opening Endoscopic, Diagnostic (ICD-10-PCS; 2020-04-12)
PROC: 0DB98ZX Excision of Duodenum, Via Natural or Artificial Opening Endoscopic, Diagnostic (ICD-10-PCS; principal; 2020-04-12 11:45)
PROC: B412YZZ Fluoroscopy of Hepatic Artery using Other Contrast (ICD-10-PCS; 2020-04-18)
PROC: B414YZZ Fluoroscopy of Superior Mesenteric Artery using Other Contrast (ICD-10-PCS; 2020-04-18)
PROC: 04V33DZ Restriction of Hepatic Artery with Intraluminal Device, Percutaneous Approach (ICD-10-PCS; 2020-04-18)
DX: A41.9 Sepsis, unspecified organism (principal); R65.21 Severe sepsis with septic shock; K26.4 Chronic or unspecified duodenal ulcer with hemorrhage; R57.8 Other shock; R40.20 Unspecified coma; G93.41 Metabolic encephalopathy; D62 Acute posthemorrhagic anemia; N39.0 Urinary tract infection, site not specified; G93.40 Encephalopathy, unspecified; F10.232 Alcohol dependence with withdrawal with perceptual disturbance; E87.1 Hypo-osmolality and hyponatremia; K56.0 Paralytic ileus; K56.600 Partial intestinal obstruction, unspecified as to cause; B95.5 Unspecified streptococcus as the cause of diseases classified elsewhere; R53.1 Weakness; R53.81 Other malaise; E87.6 Hypokalemia; N40.1 Benign prostatic hyperplasia with lower urinary tract symptoms; E11.9 Type 2 diabetes mellitus without complications; Z79.4 Long term (current) use of insulin; I10 Essential (primary) hypertension; E78.5 Hyperlipidemia, unspecified; Z95.0 Presence of cardiac pacemaker
CPT/HCPCS: 36215; 36217; 36218; 36415; 36430; 36569; 37244; 51702; 70450; 74177; 74250; 75726; 75774; 80048; 80053; 80069; 81001; 82140; 82947; 83605; 83735; 84132; 85014; 85018; 85025; 85027; 85610; 85730; 86850; 86900; 86901; 86923; 87040; 87086; 88305; 88342; 92610; 93005; 93010; 96365-59; 96366-59; 96368; 96375-59; 97110; 97112; 97116; 97162; 97166; 97530; 97535; 99152; 99153; 99285-25; A9270; A9270-GY; C1751; C1760; C1769; C1887; C1894; C9113; J0696; J1644; J1815; J2001; J2060; J2250; J2405; J2543; J2704; J3010; J3370; J3411; J3475; J3480; J7030; J7040; J7042; J7050; J7120; P9016; Q9967; U0002

== ENCOUNTER 2020-07-07 15:18 | Inpatient (IN) | payer MEDICARE, OTHER ==
[~2020-07-07] VITALS: Ht 172.7 cm; Wt 83.0 kg
[~2020-07-07 15:18] MED LIST changes: +B-1100 M1 PO; +CEFU500T30 PO; +FOLI1 PO; +LIDO700A20 TOP; +PANT40 PO; +SILDENAFIL CITR50 MG PO; +[UNRECOGNIZED DRUG - OTHER] PO
[2020-07-07 17:07] LABS: BASOPHILS ABSOLUTE AUTO 0.04 K/mm3 (0.00-0.23); BASOPHILS PERCENT AUTO 0 % (0-2); EOSINOPHILS PERCENT AUTO 1 % (0-6); Hematocrit 43.9 % (37.0-53.0); Hemoglobin 13.7 g/dL (13.5-17.5); IMMATURE GRAN ABSOLUTE AUTO 0.05 K/mm3 (0.00-0.10); IMMATURE GRAN PERCENT AUTO 0 % (0-1); LYMPHOCYTES ABSOLUTE AUTO 1.29 K/mm3 (0.84-5.20); LYMPHOCYTES PERCENT AUTO 11 % (21-46); MONOCYTES ABSOLUTE AUTO 0.99 K/mm3 (0.16-1.47); MONOCYTES PERCENT AUTO 9 % (4-13); Mean Corpuscular HGB 26.6 pg (26.0-34.0); Mean Corpuscular HGB Conc 31.2 g/dL (31.5-36.5); Mean Corpuscular Volume 85 fL (80-100); Mean Platelet Volume 9.9 fL (9.1-12.4); NEUTROPHILS ABSOLUTE AUTO 8.93 K/mm3 (1.96-9.15); NEUTROPHILS PERCENT AUTO 78 % (41-73); Platelet Count 362 K/mm3 (150-400); RDW Coefficient Variation 22.2 % (11.7-14.2); RDW Standard Deviation 67.1 fL (35.1-46.3); Red Blood Cell Count 5.15 M/mm3 (4.30-5.90)
[2020-07-07 17:31] LABS: Alanine Aminotransfer (ALT/SGP 16 U/L (12-78); Albumin, Blood 4.3 g/dL (3.4-5.0); Albumin/Globulin Ratio 0.9 (0.8-1.8); Alk Phos 97 U/L (50-136); Anion Gap 9 mmol/L (6-16); Aspartate Aminotrans (AST/SGOT 18 U/L (12-37); Bilirubin, Total 0.6 mg/dL (0.1-1.0); Blood Urea Nitrogen 17 mg/dL (8-24); Bun/Creatinine Ratio 17.3 (12.0-20.0); CO2, Blood 24 mmol/L (21-32); Chloride, Blood 97 mmol/L (98-108); Creatinine, Blood 0.98 mg/dL (0.60-1.20); Globulin, Blood 4.8 g/dL (2.2-4.0); Glomerular Filtration Rate >60 (60-); Glucose, Blood 124 mg/dL (70-99); Potassium, Blood 4.3 mmol/L (3.5-5.5); Sodium, Blood 130 mmol/L (136-145); Total Protein, Blood 9.1 g/dL (6.4-8.2)
[2020-07-07 19:37] LABS: Source, Urine Clean Catch
[2020-07-07 19:42] LABS: Appearance, Urine Cloudy (Clear); Bilirubin, Urine Neg (Neg); Blood, Urine 2+ (Neg); Color, Urine Yellow (P-Yellow); Glucose Qualitative, Urine Neg (Neg); Ketones, Urine 2+ (Neg); Leukocyte Esterase, Urine 3+ (Neg); Nitrite, Urine Pos (Neg); Protein, Urine 2+ (Neg); Specific Gravity, Urine 1.015 (1.003-1.022); Urobilinogen, Urine NORM (Normal)
[2020-07-07 19:51] LABS: Squamous Epithelial Cells Few /hpf (Few); White Blood Cells, Urine TNTC /hpf (0-5)
[2020-07-07 19:52] LABS: Bacteria Mod /hpf; Trichomonas Rare /hpf
[2020-07-07] MEDS ORDERED: TRAM50 PO (22:45)
[2020-07-07] MEDS ORDERED: METFORMIN HCL1000 M3 PO (22:46)
--- NOTE | 2020-07-08 01:20 | NUR ---
0055 PT ADMITTED TO ROOM 360 PER CART FROM ER; REPORT RECEIVED FROM WILMAR VALENTINE, VIA ER.
--- NOTE | 2020-07-08 04:28 | NUR ---
SHIFT SUMMARY: 76 Y/O MALE HAD RESTLESS NIGHT THIS SHIFT; PT WAS GIVEN FLEETS ENEMA WITH NO RESULTS NOTED (PT UTILIZED BSC X 1 ASSIST); PT C/O ABD PAIN WHICH VERY TENDER TOUCH AND ALSO CHRONIC BACK PAIN RATED 8/10 WITH DILAUDID 0.5MG IVP X 2 GIVEN WITH RELIEF NOTED; ALERT AND ORIENTED X 4; BED LOW POSITION WITH CALL LIGHT AT SIDE.
[2020-07-08 05:12] LABS: BASOPHILS ABSOLUTE AUTO 0.04 K/mm3 (0.00-0.23); BASOPHILS PERCENT AUTO 0 % (0-2); EOSINOPHILS ABSOLUTE AUTO 0.04 K/mm3 (0.00-0.68); EOSINOPHILS PERCENT AUTO 0 % (0-6); Hematocrit 35.8 % (37.0-53.0); Hemoglobin 11.6 g/dL (13.5-17.5); IMMATURE GRAN ABSOLUTE AUTO 0.04 K/mm3 (0.00-0.10); IMMATURE GRAN PERCENT AUTO 0 % (0-1); LYMPHOCYTES ABSOLUTE AUTO 1.17 K/mm3 (0.84-5.20); LYMPHOCYTES PERCENT AUTO 11 % (21-46); MONOCYTES ABSOLUTE AUTO 1.12 K/mm3 (0.16-1.47); MONOCYTES PERCENT AUTO 11 % (4-13); Mean Corpuscular HGB 27.3 pg (26.0-34.0); Mean Corpuscular HGB Conc 32.4 g/dL (31.5-36.5); Mean Corpuscular Volume 84 fL (80-100); Mean Platelet Volume 10.7 fL (9.1-12.4); NEUTROPHILS ABSOLUTE AUTO 8.04 K/mm3 (1.96-9.15); NEUTROPHILS PERCENT AUTO 77 % (41-73); Platelet Count 292 K/mm3 (150-400); RDW Coefficient Variation 21.9 % (11.7-14.2); Red Blood Cell Count 4.25 M/mm3 (4.30-5.90); White Blood Cell Count 10.45 K/mm3 (4.00-11.30)
[2020-07-08 05:35] LABS: Anion Gap 8 mmol/L (6-16); Blood Urea Nitrogen 12 mg/dL (8-24); CO2, Blood 24 mmol/L (21-32); Chloride, Blood 100 mmol/L (98-108); Glomerular Filtration Rate >60 (60-); Glucose, Blood 98 mg/dL (70-99); Potassium, Blood 4.3 mmol/L (3.5-5.5); Sodium, Blood 132 mmol/L (136-145)
--- NOTE | 2020-07-08 15:23 | NUR ---
PT TO IMAGING VIA WHEELCHAIR.
--- NOTE | 2020-07-08 17:21 | NUR ---
SHIFT SUMMARY PT A&Ox4 T/O SHIFT, WITH MINIMAL COMPLAINTS OF PAIN. PT HAD 3 BM TODAY AND NEW IMAGING WAS TAKEN OF THE ABD. PT STATED WITH EACH BM THE PAIN WAS LESSENED. BM WAS GRAYISH IN COLOR AND CONTAINED SOME MUCOUS AND OILS. DUE TO PT HAVING BM, FEEL OIL ENEMA HAS BEEN DC. STILL NPO, CBG Q6H. PT REALLY WANTS TO EAT/DRINK.
--- NOTE | 2020-07-09 00:55 | NUR ---
PT REMAINS NPO; NO BM THIS SHIFT NOTED.
--- NOTE | 2020-07-09 03:45 | NUR ---
SHIFT SUMMARY: 75 Y/O MALE RESTED COMFORTABLY ALL SHIFT; DENIES NAUSEA; PT C/O BACK PAIN RATED 7/10 WITH DILAUDID 0.5MG IVP X 1 GIVEN WITH RELIEF FELT; NO BMs THIS SHIFT NOTED; VOIDING CLEAR YELLOW FLUID WITHOUT ISSUE; TELEMETRY REFLECTS PACED RHYTHM PER CLARISA--ELECTRONICS INSTALLER; NPO; ALERT AND ORIENTED X 4; PLEASANT AND COOPERATIVE; BED LOW POSITION WITH CALL LIGHT AT SIDE.
[2020-07-09 06:29] LABS: Anion Gap 8 mmol/L (6-16); Blood Urea Nitrogen 8 mg/dL (8-24); Bun/Creatinine Ratio 9.7 (12.0-20.0); CO2, Blood 24 mmol/L (21-32); Calcium, Blood 8.9 mg/dL (8.5-10.1); Chloride, Blood 102 mmol/L (98-108); Creatinine, Blood 0.82 mg/dL (0.60-1.20); Glomerular Filtration Rate >60 (60-); Glucose, Blood 76 mg/dL (70-99); Potassium, Blood 4.3 mmol/L (3.5-5.5); Sodium, Blood 134 mmol/L (136-145)
[2020-07-09 07:21] LABS: BASOPHILS ABSOLUTE AUTO 0.02 K/mm3 (0.00-0.23); BASOPHILS PERCENT AUTO 0 % (0-2); EOSINOPHILS ABSOLUTE AUTO 0.12 K/mm3 (0.00-0.68); EOSINOPHILS PERCENT AUTO 2 % (0-6); Hematocrit 32.3 % (37.0-53.0); Hemoglobin 10.4 g/dL (13.5-17.5); IMMATURE GRAN ABSOLUTE AUTO 0.03 K/mm3 (0.00-0.10); IMMATURE GRAN PERCENT AUTO 1 % (0-1); LYMPHOCYTES PERCENT AUTO 14 % (21-46); MONOCYTES ABSOLUTE AUTO 0.84 K/mm3 (0.16-1.47); MONOCYTES PERCENT AUTO 13 % (4-13); Mean Corpuscular HGB 27.4 pg (26.0-34.0); Mean Corpuscular HGB Conc 32.2 g/dL (31.5-36.5); Mean Corpuscular Volume 85 fL (80-100); Mean Platelet Volume 10.2 fL (9.1-12.4); NEUTROPHILS ABSOLUTE AUTO 4.38 K/mm3 (1.96-9.15); NEUTROPHILS PERCENT AUTO 70 % (41-73); Platelet Count 240 K/mm3 (150-400); RDW Standard Deviation 67.5 fL (35.1-46.3); Red Blood Cell Count 3.79 M/mm3 (4.30-5.90); White Blood Cell Count 6.29 K/mm3 (4.00-11.30)
[2020-07-09] MEDS ORDERED: DOXY100 PO (14:05)
--- NOTE | 2020-07-09 15:25 | NUR ---
PT DISCHARGED AT APPROX 1520 VIA WHEELCHAIR BY TOM SUMMERS RN. FRIEND WAS AWAITING FOR HIM DOWNSTAIRS BY PT ENTRANCE. DISCHARGE INSTRUCTIONS WERE DISCUSSED WITH PT AND PT VOICED UNDERSTANDING AND STATED HE HAD NO QUESTIONS. PT STATED HE WOULD MAKE HIS OWN FOLLOW UP APPOINTMENT WITH HIS PCP, AND HE WAS STRONGLY ENCOURAGED TO AND I VOICED HOW IMPORTANT IT WAS TO DO SO. IV WAS REMOVED AND SITE LOOKED TO BE WNL.
== END 2020-07-09 15:23 | disposition home or self-care (01) | DRG 389 ==
LOC: ER 15:18 → MEDS 15:19 → ER 15:19 → MEDS 15:19
PROVIDERS: Internal Medicine; Nurse Practitioner Acute Care; Physician Assistant; ADMIT Internal Medicine
DX: K56.600 Partial intestinal obstruction, unspecified as to cause (principal); T83.518A Infection and inflammatory reaction due to other urinary catheter, initial encounter; M17.0 Bilateral primary osteoarthritis of knee; Z95.0 Presence of cardiac pacemaker; E78.5 Hyperlipidemia, unspecified; E11.9 Type 2 diabetes mellitus without complications; Z79.82 Long term (current) use of aspirin; Z79.84 Long term (current) use of oral hypoglycemic drugs; I10 Essential (primary) hypertension; B96.89 Other specified bacterial agents as the cause of diseases classified elsewhere; B95.4 Other streptococcus as the cause of diseases classified elsewhere
CPT/HCPCS: 36415; 74018; 74176; 80048; 80053; 81001; 82378; 82947; 83605; 83690; 84484; 85025; 86850; 86900; 86901; 86923; 87040; 87077; 87086; 87186; 93005; 93010; 96361; 96365; 96367; 96375; 96376; 99285-25; A9270-GY; C9113; G0378; J0696; J1170; J1650; J2405; J3010; J3480; J7030

== ENCOUNTER 2020-07-18 12:05 | Inpatient (IN) | payer OTHER, MEDICARE ==
[~2020-07-18] VITALS: Ht 172.7 cm; Wt 85.0 kg
[~2020-07-18 12:05] MED LIST changes: +DOXY100 PO; +METFORMIN HCL1000 M3 PO; +TRAM50 PO
[2020-07-18 14:24] LABS: Influenza A, PCR Negative (NEGATIVE); Influenza B, PCR Negative (NEGATIVE); Resp Syncytial Virus, PCR Negative (NEGATIVE); SARS-Cov-2 (COVID-19) PCR, MMC Negative (NEGATIVE)
[2020-07-18 14:35] LABS: BASOPHILS ABSOLUTE AUTO 0.02 K/mm3 (0.00-0.23); BASOPHILS PERCENT AUTO 0 % (0-2); EOSINOPHILS ABSOLUTE AUTO 0.01 K/mm3 (0.00-0.68); EOSINOPHILS PERCENT AUTO 0 % (0-6); Hematocrit 29.6 % (37.0-53.0); Hemoglobin 9.6 g/dL (13.5-17.5); IMMATURE GRAN ABSOLUTE AUTO 0.07 K/mm3 (0.00-0.10); IMMATURE GRAN PERCENT AUTO 1 % (0-1); LYMPHOCYTES ABSOLUTE AUTO 0.84 K/mm3 (0.84-5.20); LYMPHOCYTES PERCENT AUTO 6 % (21-46); MONOCYTES ABSOLUTE AUTO 0.64 K/mm3 (0.16-1.47); MONOCYTES PERCENT AUTO 4 % (4-13); Mean Corpuscular HGB 27.9 pg (26.0-34.0); Mean Corpuscular HGB Conc 32.4 g/dL (31.5-36.5); Mean Corpuscular Volume 86 fL (80-100); Mean Platelet Volume 10.4 fL (9.1-12.4); NEUTROPHILS ABSOLUTE AUTO 12.84 K/mm3 (1.96-9.15); NEUTROPHILS PERCENT AUTO 89 % (41-73); Platelet Count 331 K/mm3 (150-400); RDW Coefficient Variation 22.8 % (11.7-14.2); RDW Standard Deviation 70.4 fL (35.1-46.3); Red Blood Cell Count 3.44 M/mm3 (4.30-5.90); White Blood Cell Count 14.42 K/mm3 (4.00-11.30)
[2020-07-18 14:57] LABS: Alanine Aminotransfer (ALT/SGP 16 U/L (12-78); Albumin, Blood 3.4 g/dL (3.4-5.0); Albumin/Globulin Ratio 0.9 (0.8-1.8); Alk Phos 72 U/L (50-136); Anion Gap 12 mmol/L (6-16); Aspartate Aminotrans (AST/SGOT 14 U/L (12-37); Bilirubin, Total 0.5 mg/dL (0.1-1.0); Blood Urea Nitrogen 37 mg/dL (8-24); Bun/Creatinine Ratio 37.3 (12.0-20.0); CO2, Blood 22 mmol/L (21-32); Calcium, Blood 9.5 mg/dL (8.5-10.1); Chloride, Blood 95 mmol/L (98-108); Creatinine, Blood 0.99 mg/dL (0.60-1.20); Globulin, Blood 3.9 g/dL (2.2-4.0); Glomerular Filtration Rate >60 (60-); Glucose, Blood 144 mg/dL (70-99); Sodium, Blood 129 mmol/L (136-145); Total Protein, Blood 7.3 g/dL (6.4-8.2)
[2020-07-18 14:59] LABS: Source, Urine Clean Catch
[2020-07-18 15:10] LABS: Appearance, Urine Clear (Clear); Bilirubin, Urine Neg (Neg); Blood, Urine 1+ (Neg); Color, Urine Yellow (P-Yellow); Glucose Qualitative, Urine Neg (Neg); Ketones, Urine 1+ (Neg); Leukocyte Esterase, Urine 2+ (Neg); Nitrite, Urine Neg (Neg); Protein, Urine 1+ (Neg); Urobilinogen, Urine NORM (Normal)
[2020-07-18 15:39] LABS: Bacteria Few /hpf; Squamous Epithelial Cells Few /hpf (Few); White Blood Cells, Urine 25-50 /hpf (0-5)
[2020-07-18] MEDS ORDERED: FERROUS SULFAT325 M3 PO (18:11)
[2020-07-18] MEDS ORDERED: TAMSULOSIN HCL0.4 M1 PO (18:12)
[2020-07-18] MEDS ORDERED: NEURONTIN300 MG PO (18:12)
[2020-07-18] MEDS ORDERED: Klor-Con 1010 MEQ PO (18:13)
[2020-07-18] MEDS ORDERED: CARVEDILOL12.5 MG PO (18:13)
[2020-07-18] MEDS ORDERED: SPIRONOLACTONE25 MG PO (18:13)
[2020-07-18] MEDS ORDERED: GLUCOPHAGE1000 M3 PO (18:14)
[2020-07-18] MEDS ORDERED: FUROSEMIDE40 MG PO (18:14)
[2020-07-18] MEDS ORDERED: RAMI5 PO (18:15)
--- NOTE | 2020-07-18 23:20 | NUR ---
ADMIT *LATE ENTRY* ARRIVED AROUND 1999 VIA STRETCHER, SLID OVER TO NEW BED. PT THEN ASKED TO USE RESTROOM. PT UP 1 ASSIST c GAIT BELT. HAD UNMEASURED VOID. LAB INFORMED ME OF CRITICAL LA @2.6, DISCUSSED c CHARGE NURSE CLARISSA Bauman-DIDN'T INFORM MD SINCE LA IS TRENDING DOWN & PT RECIEVING IV FLUIDS, ANTIBIOTICS. PT REPORTING 14/10 SHARP, ACHY PAIN IN RLQ RADIATING TO R FLANK UPON ARRIVING TO FLOOR, MEDICATED c 50MG TRAMADOL & WHEN REASSESSED PT DENIES RELIEF. HAS NO NON VERBAL S/S OF PAIN. MEDICATED c 0.2MG IV DILAUDID & WILL MONITOR FOR EFFECTIVENESS. PT DENIES ANY NAUSEA @THIS TIME. PT UNSURE WHEN HE HAD LAST BM, DENIES THE NEED FOR MIRALAAX. STATES HE HASN'T BEEN ABLE TO EAT/TOLERATE FOOD IN 3 DAYS, HOWEVER WAS ABLE TO KEEP JELLO & PUDDING DOWN W/O EMESIS. PT REPORTS HE NORMALLY SELF CATHS 1X PER WEEK, HOWEVER HAS SUCCESSFULLY VOIDED 2X SINCE ARRIVING TO FLOOR. [facility] PT.
--- NOTE | 2020-07-19 04:39 | NUR ---
SHIFT SUMMARY AOX4. ROUGHLY ONLY 1 HR SLEEP, DENIED THE NEED FOR MELATONIN OR SLEEP AID LAST NIGHT. VSS. DENIES ANY N/V. TOLERATED SUGAR FREE JELLO & PUDDING FOR A SNACK LAST NIGHT. DENIES SOB. REPORTED 14/10 SHARP PAIN IN RLQ ABD RADIATING TO R FLANK, MEDICATED 1X c TORADOL & 1X c DILAUDID PER ORDERS. STATES PAIN RELIEF BUT IS UNABLE TO RATE PAIN LEVEL WHEN REASSESSED. DENIES THE NEED FOR MORE PAIN MEDICATION THIS AM. UP TO BSC c 1 ASSIST, VOIDED 3X. CALL LIGHT IN REACH & PT ABLE TO MAKE NEEDS KNOWN. PT DOES STATE HE WISHES HE HAD MORE ASSISTANCE @HOME c BASIC CARE/ADLS.
[2020-07-19 05:42] LABS: BASOPHILS ABSOLUTE AUTO 0.02 K/mm3 (0.00-0.23); BASOPHILS PERCENT AUTO 0 % (0-2); EOSINOPHILS ABSOLUTE AUTO 0.02 K/mm3 (0.00-0.68); EOSINOPHILS PERCENT AUTO 0 % (0-6); Hematocrit 20.1 % (37.0-53.0); Hemoglobin 6.5 g/dL (13.5-17.5); IMMATURE GRAN ABSOLUTE AUTO 0.03 K/mm3 (0.00-0.10); IMMATURE GRAN PERCENT AUTO 0 % (0-1); LYMPHOCYTES ABSOLUTE AUTO 1.29 K/mm3 (0.84-5.20); LYMPHOCYTES PERCENT AUTO 16 % (21-46); MONOCYTES ABSOLUTE AUTO 0.82 K/mm3 (0.16-1.47); MONOCYTES PERCENT AUTO 10 % (4-13); Mean Corpuscular HGB 27.8 pg (26.0-34.0); Mean Corpuscular HGB Conc 32.3 g/dL (31.5-36.5); Mean Corpuscular Volume 86 fL (80-100); Mean Platelet Volume 10.5 fL (9.1-12.4); NEUTROPHILS ABSOLUTE AUTO 5.87 K/mm3 (1.96-9.15); NEUTROPHILS PERCENT AUTO 73 % (41-73); Platelet Count 225 K/mm3 (150-400); RDW Standard Deviation 70.9 fL (35.1-46.3); Red Blood Cell Count 2.34 M/mm3 (4.30-5.90); White Blood Cell Count 8.05 K/mm3 (4.00-11.30)
[2020-07-19 05:59] LABS: Anion Gap 8 mmol/L (6-16); Blood Urea Nitrogen 30 mg/dL (8-24); Bun/Creatinine Ratio 31.7 (12.0-20.0); CO2, Blood 23 mmol/L (21-32); Calcium, Blood 8.6 mg/dL (8.5-10.1); Chloride, Blood 101 mmol/L (98-108); Creatinine, Blood 0.95 mg/dL (0.60-1.20); Glomerular Filtration Rate >60 (60-); Glucose, Blood 73 mg/dL (70-99); Potassium, Blood 4.3 mmol/L (3.5-5.5); Sodium, Blood 132 mmol/L (136-145)
[2020-07-19 07:12] LABS: BASOPHILS ABSOLUTE AUTO 0.01 K/mm3 (0.00-0.23); BASOPHILS PERCENT AUTO 0 % (0-2); EOSINOPHILS ABSOLUTE AUTO 0.02 K/mm3 (0.00-0.68); EOSINOPHILS PERCENT AUTO 0 % (0-6); Hematocrit 21.5 % (37.0-53.0); Hemoglobin 6.7 g/dL (13.5-17.5); IMMATURE GRAN ABSOLUTE AUTO 0.03 K/mm3 (0.00-0.10); IMMATURE GRAN PERCENT AUTO 0 % (0-1); LYMPHOCYTES ABSOLUTE AUTO 1.67 K/mm3 (0.84-5.20); LYMPHOCYTES PERCENT AUTO 19 % (21-46); MONOCYTES ABSOLUTE AUTO 0.87 K/mm3 (0.16-1.47); MONOCYTES PERCENT AUTO 10 % (4-13); Mean Corpuscular HGB 27.2 pg (26.0-34.0); Mean Corpuscular HGB Conc 31.2 g/dL (31.5-36.5); Mean Corpuscular Volume 87 fL (80-100); NEUTROPHILS PERCENT AUTO 70 % (41-73); Platelet Count 234 K/mm3 (150-400); RDW Coefficient Variation 23.2 % (11.7-14.2); RDW Standard Deviation 72.3 fL (35.1-46.3); Red Blood Cell Count 2.46 M/mm3 (4.30-5.90)
[2020-07-19 10:49] LABS: Percent Saturation 21.7 % (20.0-50.0)
--- NOTE | 2020-07-19 13:10 | NUR ---
REPORT WAS CALLED TO WILMAR DUFFY IN ICU.
--- NOTE | 2020-07-19 13:17 | NUR ---
DR. LEWIS NOTIFIED BY TELEPHONE AT 1000 THAT THE PATIENT WAS UNSURE IF HE WOULD LIKE A BLOOD TRANSFUSION TODAY. THE PATIENT INFORMED BY THE RN WHY THE BLOOD TRANSFUSION WAS ORDERED. WHEN DR. LEWIS WAS NOTIFIED, HE TOLD THE RN THAT HE WOULD BE BY TO TALK WITH THE PATIENT. AT 1130, THE PATIENT CALLED TO GET UP TO THE BSC TO VOID. THE BILLING SPEC WAS IN THE ROOM TO ASSIST THE PATIENT. WHEN HE BEGAN TO STAND UP, THE PATIENT FELL BACKWARDS ONTO THE BED. BILLING SPEC CALLED FOR HELP, AN BARREL CHARRER HELPER WAS CALLED. VITALS CHECKED AND SHOWED BP 93/55 mm Hg. 5OO ML BOLUS OF NS WAS ORDERED DURING BARREL CHARRER HELPER AND INITIATED. THE 1 UNIT OF PRBC WAS STARTED AT THIS TIME WELL. THE ETHNOARCHAEOLOGY PROFESSOR WAS MONITORING THE PATIENT DURING THE FIRST 15 MINUTES OF THE BLOOD TRANSFUSION. THE BOLUS OF NS WAS COMPLETE WHE THIS RN CHECKED IN ON THE PATIENT FOR THE NEXT SET OF VITALS WHICH SHOWED BP 68/40 mm Hg. A BARREL CHARRER HELPER WAS INITIATED ONCE MORE FOR A SIGNIFICANT DECREASE IN BP. DR. LEWIS ORDERED LABS AND AN EKG WHICH WAS PERFORMED IN THE PATIENTS ROOM. ANOTHER BOLUS WAS INITIATED, THE BLOOD TRANSFUSION STILL RUNNING. THE PATIENT WAS THEN TRANSPORTED TO ICU BY AN MANUFACTURING QUALITY TECHNICIAN AND BILLING SPEC. REPORT CALLED TO WILMAR DUFFY IN ICU.
[2020-07-19 13:28] LABS: BASOPHILS ABSOLUTE AUTO 0.02 K/mm3 (0.00-0.23); BASOPHILS PERCENT AUTO 0 % (0-2); EOSINOPHILS ABSOLUTE AUTO 0.07 K/mm3 (0.00-0.68); EOSINOPHILS PERCENT AUTO 0 % (0-6); IMMATURE GRAN ABSOLUTE AUTO 0.12 K/mm3 (0.00-0.10); IMMATURE GRAN PERCENT AUTO 1 % (0-1); LYMPHOCYTES ABSOLUTE AUTO 1.11 K/mm3 (0.84-5.20); LYMPHOCYTES PERCENT AUTO 7 % (21-46); MONOCYTES ABSOLUTE AUTO 1.18 K/mm3 (0.16-1.47); MONOCYTES PERCENT AUTO 8 % (4-13); Mean Corpuscular HGB 28.4 pg (26.0-34.0); Mean Corpuscular Volume 89 fL (80-100); NEUTROPHILS ABSOLUTE AUTO 13.09 K/mm3 (1.96-9.15); NEUTROPHILS PERCENT AUTO 84 % (41-73); Platelet Count 210 K/mm3 (150-400); RDW Coefficient Variation 22.8 % (11.7-14.2); RDW Standard Deviation 73.9 fL (35.1-46.3); Red Blood Cell Count 1.94 M/mm3 (4.30-5.90); White Blood Cell Count 15.59 K/mm3 (4.00-11.30)
[2020-07-19 13:39] LABS: Hematocrit 17.2 % (37.0-53.0); Hemoglobin 5.5 g/dL (13.5-17.5)
--- NOTE | 2020-07-19 13:45 | NUR ---
Arrived to Pt's room during PIERCER. Pt complains of pain in his abdomen. Pt's pressures are significantly low. Plan for Pt to be transfered to ICU. Called and spoke with Pt's step daughter Paul who prefers to be addressed as [place]. Oren reports being Pt's MPOA (MPOA is uploaded into Pt's EMR). Provided update and discussed plan of care. Oren reports during last hospitalization Pt wanted to be DNR. Oren states Pt has been drinking heavily lately and the 9th anniversary of his 's is coming up in 2 days. Oren feels Pt is starting to lose his will to live. Oren reports living in [place] but currently is in [place]. Oren expresses apprciation of call. Spoke with Dr Redmond, discussed case, and relayed conversation that took place with Pt's step daughter Oren. Palliative Care will remain available.
[2020-07-19 13:47] LABS: Anion Gap 8 mmol/L (6-16); Blood Urea Nitrogen 26 mg/dL (8-24); Bun/Creatinine Ratio 27.6 (12.0-20.0); CO2, Blood 23 mmol/L (21-32); Calcium, Blood 7.9 mg/dL (8.5-10.1); Chloride, Blood 102 mmol/L (98-108); Creatinine, Blood 0.94 mg/dL (0.60-1.20); Glomerular Filtration Rate >60 (60-); Glucose, Blood 133 mg/dL (70-99); Potassium, Blood 4.1 mmol/L (3.5-5.5); Sodium, Blood 133 mmol/L (136-145)
--- NOTE | 2020-07-19 14:00 | NUR ---
Patient arrived from room 340 after 2nd Rapid Response. He was brought to ICU 13 with htpotension and systolics 50-60's HR 100's. He was on NRM at 15 L O2 and sats >90%. He has already recieved 1L bolus and we started 2nd LR bolus, and 1 PRBC was infusing at 250ml/hr. When rolling him in bed he was having syncopal episodes. Dr Juarez and Dr Redmond comunicating and we added orders for 3 more PRBC's and GI consult. We are placing szymanski and rectal tube for maroon liquid stool approx 500ml's.
[2020-07-19 14:42] LABS: International Normalized Ratio 1.34; Prothrombin Time Results 14.1 Sec (9.7-11.5)
--- NOTE | 2020-07-19 15:15 | NUR ---
Dr Juarez and Dr Redmond talked with Dr Osborne and decised to consult Dr Noland for IR. we place 14Fr coude szymanski and rexctal tube. We started rapid infuser for two more units and two after they are done. We are also starting 3rd liter bolus. Levophed started after PICC line in YE done and is currently at 5 mcg/hr with systolics 80-90's. Wev also ordered vasopressin to take to labor mediator. 80 mg Protonixs given and gtt sent. Right before transferring to labor mediator he had several more syncopal episodes and placed in trendelenberg position. labor mediator came and took patient to labor mediator and charge nurse followed with pumps.
--- NOTE | 2020-07-19 17:00 | NUR ---
Patient back from laborer landscape and is more stable, He has art line in right groin and dressing intact and site WNL's. The rapid infuser are just finishing and he has received a total of 5 PRBC, 1 Plasma, 3 Liters of fluids. He is a little confused but is easily re-oriented to self and place. He is in reverse trendelenberg and watching TV. [place] called and he stated OK to release information. Levophed at 5 mcg/min and increased to 8 mcg/min for systoplic 80-90. I placed him on RA shortly after retuning and sats 96%.
[2020-07-19 18:41] LABS: Hematocrit 27.2 % (37.0-53.0); Hemoglobin 9.3 g/dL (13.5-17.5)
[2020-07-19 18:48] LABS: Base Excess Venous -3.9 mmol/L; Bicarbonate Venous 21.2 mmol/L (24.0-30.0); PCO2 Venous 40.4 mmHg (38-42); PO2 Venous 55.8 mmHg (38-42); pH Blood Venous 7.34 (7.34-7.37)
--- NOTE | 2020-07-19 18:58 | NUR ---
Patient is fully awake on RA and sats >90%. He has Levophed running at increased rate of 10 mcg/min and systolic 90-100 with MAP>65 through Art line. Vaso pressin of at lab assistant and remains on standby. Dr Osborne came by to see patient. H& H just drawn and Dr nye in room assessing patient. He has PICC line to YE and 2 LFA iv's intact. Patient remains a little confused and re-orients quickly.. Dr Nye ordered 4 platlets to be infused. protonix gtt started in lab assistant. emptied 800 ml maroon liquid stool and 1600 ml clear yellow urine. Patient has just over 3 Liters IV infused not accounting for blood product admin.
--- NOTE | 2020-07-19 20:00 | NUR ---
ASSUMED CARE OF PT AT 1915. REPORT RECEIVED AT BEDSIDE. PT PRESENTS IN BED. ALERT AND MOSTLY ORIENTED. DO NOTE MILD DISORIENTATION THOUGH REORIENTS WELL. WILL TRANSFUSE FFP AND RBC'S ORDERED. WILL REVIEW CHART AND PLAN OF CARE.
[2020-07-19 22:22] LABS: Hemoglobin 7.2 g/dL (13.5-17.5)
--- NOTE | 2020-07-20 01:29 | NUR ---
TARASNISHIELD IN PLACE. SMALL AMOUNT OF MELONIC STOOL NOTED. PT IN PROCESS OF TRANSFUSING PRBC'S PER DR HARRISON. HAS GONE AND RETURNED FROM CT. [facility] RAD[facility]OLOG[facility] PHONES AND SPEAKS DIRECTLY TO DR HARRISON CONCERNING BLOOD IN STOMACHE. DR HARRISON PHONES AND SPEAKS WITH DR GRANADOS WITH RESULTS. PLAN FOR PT TO RETURN TO LAB FOR INTERVENTION WITH DR GRANADOS IN AM UNLESS PT BECOMES UNSTABLE. LEVOPHED DRIP DOWN TO 8 MCG/MIN MAP REMAINS > 60. ART LINE IN PLACE TO RIGHT GROIN. WILL CONTINUE TO CLOSELY MONITOR PT.
--- NOTE | 2020-07-20 03:05 | NUR ---
PT COMPLETES TRANSFUSION OF PRBC'S WITHOUT S/S ADVERSE REACTIONS. LEVOPHED HAS BEEN DECREASED TO 6 MCG'S. BLOOD PRESSURE REMAINS WITH MAP > 60. WILL CONTINUE TO MONITOR.
[2020-07-20 04:15] LABS: BASOPHILS ABSOLUTE AUTO 0.01 K/mm3 (0.00-0.23); BASOPHILS PERCENT AUTO 0 % (0-2); EOSINOPHILS PERCENT AUTO 0 % (0-6); Hematocrit 24.9 % (37.0-53.0); Hemoglobin 8.6 g/dL (13.5-17.5); IMMATURE GRAN ABSOLUTE AUTO 0.06 K/mm3 (0.00-0.10); IMMATURE GRAN PERCENT AUTO 1 % (0-1); LYMPHOCYTES ABSOLUTE AUTO 1.11 K/mm3 (0.84-5.20); LYMPHOCYTES PERCENT AUTO 9 % (21-46); MONOCYTES ABSOLUTE AUTO 1.27 K/mm3 (0.16-1.47); MONOCYTES PERCENT AUTO 11 % (4-13); Mean Corpuscular HGB 29.3 pg (26.0-34.0); Mean Corpuscular HGB Conc 34.5 g/dL (31.5-36.5); Mean Corpuscular Volume 85 fL (80-100); Mean Platelet Volume 10.3 fL (9.1-12.4); NEUTROPHILS ABSOLUTE AUTO 9.37 K/mm3 (1.96-9.15); NEUTROPHILS PERCENT AUTO 79 % (41-73); Platelet Count 144 K/mm3 (150-400); RDW Coefficient Variation 15.6 % (11.7-14.2); RDW Standard Deviation 47.9 fL (35.1-46.3); Red Blood Cell Count 2.94 M/mm3 (4.30-5.90); White Blood Cell Count 11.82 K/mm3 (4.00-11.30)
[2020-07-20 04:31] LABS: International Normalized Ratio 1.16; Prothrombin Time Results 12.3 Sec (9.7-11.5)
[2020-07-20 04:38] LABS: Magnesium, Blood 1.4 mg/dL (1.6-2.4)
[2020-07-20 04:43] LABS: Alanine Aminotransfer (ALT/SGP 12 U/L (12-78); Albumin, Blood 2.2 g/dL (3.4-5.0); Alk Phos 35 U/L (50-136); Anion Gap 6 mmol/L (6-16); Aspartate Aminotrans (AST/SGOT 10 U/L (12-37); Bilirubin, Total 1.7 mg/dL (0.1-1.0); Blood Urea Nitrogen 24 mg/dL (8-24); Bun/Creatinine Ratio 28.3 (12.0-20.0); CO2, Blood 26 mmol/L (21-32); Calcium, Blood 7.2 mg/dL (8.5-10.1); Chloride, Blood 100 mmol/L (98-108); Creatinine, Blood 0.85 mg/dL (0.60-1.20); Globulin, Blood 2.2 g/dL (2.2-4.0); Glomerular Filtration Rate >60 (60-); Glucose, Blood 145 mg/dL (70-99); Potassium, Blood 3.7 mmol/L (3.5-5.5); Sodium, Blood 132 mmol/L (136-145); Total Protein, Blood 4.4 g/dL (6.4-8.2)
--- NOTE | 2020-07-20 06:30 | NUR ---
PT HAS BEEN ABLE TO REST THIS SHIFT. HAS COMPLETED TRANSFUSIONS OF PRBC'S AND FFP. NO S/S TRANSFUSION REACTIONS. DR HARRISON HAS BEEN IN UNIT THIS NIGHT. HAS REVIEWED CHART AND HE PERSONALLY CALLS DR GRANADOS CONCERNING H/H. PT HAS ONLY SMALL AMOUNT OF OUTPUT FROM [facility]. HAS NO MORE COMPLAINTS OF PAIN THIS MORNING. WILL CONTINUE TO MONITOR PT, AND WILL REPORT OFF TO ONCOMING RN.
[2020-07-20 08:48] LABS: Hematocrit 23.2 % (37.0-53.0); Hemoglobin 8.2 g/dL (13.5-17.5)
--- NOTE | 2020-07-20 09:48 | NUR ---
CARE ASSUMED OF AT 0700. PT AWAKE IN BED, DENIES COMPLAINTS. LEVOPHED AT 6MCG, DECREASED TO 5MCG AT 0938. KEEPING PT NPO FOR POTENTIAL PRINCIPAL ARCHITECTURAL FIRM PROCEDURE. 0800 H&H STABLE.
[2020-07-20 12:25] LABS: BASOPHILS ABSOLUTE AUTO 0.03 K/mm3 (0.00-0.23); BASOPHILS PERCENT AUTO 0 % (0-2); EOSINOPHILS ABSOLUTE AUTO 0.04 K/mm3 (0.00-0.68); EOSINOPHILS PERCENT AUTO 0 % (0-6); Hematocrit 23.3 % (37.0-53.0); Hemoglobin 8.3 g/dL (13.5-17.5); IMMATURE GRAN ABSOLUTE AUTO 0.06 K/mm3 (0.00-0.10); IMMATURE GRAN PERCENT AUTO 1 % (0-1); LYMPHOCYTES PERCENT AUTO 9 % (21-46); MONOCYTES PERCENT AUTO 11 % (4-13); Mean Corpuscular HGB Conc 35.6 g/dL (31.5-36.5); Mean Corpuscular Volume 84 fL (80-100); Mean Platelet Volume 10.6 fL (9.1-12.4); NEUTROPHILS ABSOLUTE AUTO 8.89 K/mm3 (1.96-9.15); NEUTROPHILS PERCENT AUTO 79 % (41-73); Platelet Count 143 K/mm3 (150-400); RDW Coefficient Variation 15.9 % (11.7-14.2); RDW Standard Deviation 47.8 fL (35.1-46.3); Red Blood Cell Count 2.77 M/mm3 (4.30-5.90); White Blood Cell Count 11.22 K/mm3 (4.00-11.30)
[2020-07-20 16:39] LABS: Hemoglobin 7.4 g/dL (13.5-17.5)
[2020-07-20 18:24] LABS: Hematocrit 22.7 % (37.0-53.0)
--- NOTE | 2020-07-20 18:32 | NUR ---
PT IS ON LEVOPHED AT 6MCG AND HAS BEEN ON THIS DOSE FOR MOST OF SHIFT. PT DOES NOT TOLERATE PAUSE IN LEVOPHED BP DROPS SIGNIFICANTLY WITHIN 1 MIN. PT HAD SERIAL H&H LABS T/O SHIFT; MOST OF WHICH REMAINED STABLE. AT 1630 H&H DROPPED FROM 8.[address] HARRISON NOTIFIED AND I UNIT PRBC ORDERED. PT GIVEN ONLY SMALL AMTS OF WATER TODAY PER DR GRANADOS. PER DR GRANADOS OKAY TO ADVANCE DIET TOLERATED SLOWLY. PT IS COOPERATIVE BUT SOME WHAT IRRITABLE, AND STATES HE IS TIRED OF BEING IN THE HOSP. PROTONIX GTT AT 10. RECTAL TUBE REMOVED THIS AM PER PT REQUEST. RECTUM VERY TENDER; BARRIER CREAM APPLIED. ATTENDS ON AND HAS REMAINED CLEAN T/O SHIFT. PT DID HAVE OLD BLOOD IN RECTAL TUBE THIS AM BUT HAD NOT PUT A LOT OUT FROM STORAGE BATTERY TESTER TO AM. ART LINE TO R SUNIL W GOOD WAVE FORM AND WAS ZEROED THIS SHIFT. PICC LINE DRSG IS SCHEDULED TO BE CHANGED TODAY.
--- NOTE | 2020-07-20 18:48 | NUR ---
ORDERS FROM DR HARRISON TO HOLD BLOOD TRANSFUSION; REPEAT H&H AT 2200, GIVE 1 UNIT IF H&H <8. UPDATE GIVEN TO PT'S DAUGHTER W PT'S PERMISSION.
--- NOTE | 2020-07-20 19:41 | NUR ---
ATTENDS CHECKED PRIOR TO SHIFT ENDING. WHILE PT WAS ON SIDE HE PASSED ~300CC DARK MELENA WITH C/O PAIN TO BACK AND ABD. DR HARRISON AND ONCOMING RN NOTIFIED. NEW ORDERS PLACED. PT GIVEN FENT 25MCG FOR DISCOMFORT.
--- NOTE | 2020-07-20 20:00 | NUR ---
ASSUMED CARE OF PT AT 1915. REPORT RECEIVED AT BEDSIDE. PT PRESENTS IN BED. ALERT AND ORIENTED. MILDLY AGITATED. LEVOPHED NOTED AT 6 MCG'S TO MAINTAIN MAP > 60. WILL DRAW H/H PER SERIAL DRAW. SPOKE WITH DR PRUITT AND ORDER RECEIVED. WILL TRANSFUSE ONE UNIT PRBC'S IF HGB < 8.0. WILL REVIEW CHART AND PLAN OF CARE FOR THIS PT.
[2020-07-20 20:53] LABS: Hemoglobin 7.4 g/dL (13.5-17.5)
--- NOTE | 2020-07-20 23:39 | NUR ---
PT IN PROCESS OF RECEIVING UNIT PRBC'S PER ORDER. WILL REPEAT H/H AT ONE HOUR POST TRANSFUSION. SPOKE WITH DR GRANADOS EARLIER IN UNIT CONCERNING PT'S BLEED. HE HAD MENTIONED HE HAD BEEN CONSIDERING ENDOSCOPY FOR PT. DID INFORM MD THAT GI WAS NOT ON UNTIL THIS FRIDAY.
[2020-07-21 02:31] LABS: BASOPHILS ABSOLUTE AUTO 0.02 K/mm3 (0.00-0.23); BASOPHILS PERCENT AUTO 0 % (0-2); EOSINOPHILS ABSOLUTE AUTO 0.07 K/mm3 (0.00-0.68); EOSINOPHILS PERCENT AUTO 1 % (0-6); Hematocrit 24.2 % (37.0-53.0); Hemoglobin 8.5 g/dL (13.5-17.5); IMMATURE GRAN ABSOLUTE AUTO 0.08 K/mm3 (0.00-0.10); IMMATURE GRAN PERCENT AUTO 1 % (0-1); LYMPHOCYTES ABSOLUTE AUTO 1.06 K/mm3 (0.84-5.20); LYMPHOCYTES PERCENT AUTO 11 % (21-46); MONOCYTES ABSOLUTE AUTO 1.07 K/mm3 (0.16-1.47); MONOCYTES PERCENT AUTO 11 % (4-13); Mean Corpuscular HGB 29.9 pg (26.0-34.0); Mean Corpuscular HGB Conc 35.1 g/dL (31.5-36.5); Mean Corpuscular Volume 85 fL (80-100); Mean Platelet Volume 10.7 fL (9.1-12.4); NEUTROPHILS ABSOLUTE AUTO 7.48 K/mm3 (1.96-9.15); NEUTROPHILS PERCENT AUTO 77 % (41-73); Platelet Count 141 K/mm3 (150-400); RDW Coefficient Variation 15.9 % (11.7-14.2); RDW Standard Deviation 48.6 fL (35.1-46.3); Red Blood Cell Count 2.84 M/mm3 (4.30-5.90); White Blood Cell Count 9.78 K/mm3 (4.00-11.30)
[2020-07-21 02:39] LABS: Anion Gap 6 mmol/L (6-16); Blood Urea Nitrogen 19 mg/dL (8-24); Bun/Creatinine Ratio 23.6 (12.0-20.0); CO2, Blood 26 mmol/L (21-32); Calcium, Blood 7.5 mg/dL (8.5-10.1); Chloride, Blood 103 mmol/L (98-108); Glomerular Filtration Rate >60 (60-); Glucose, Blood 123 mg/dL (70-99); Potassium, Blood 3.5 mmol/L (3.5-5.5); Sodium, Blood 135 mmol/L (136-145)
--- NOTE | 2020-07-21 06:30 | NUR ---
PT CONTINUES WITH Q 4 HOUR H/H. RESULTS REVEAL STABILIZED HGB. DISCUSSED THIS WITH PT. HE UNFORTUNATELY VERBALIZES HE IS VERY FRUSTRATED ABOUT HAVING TO BE IN THE HOSPITAL AND BEING ILL. ALLOWED PT TO EXPRESS FEELINGS AND VALIDATED APPROPRIATE. PT HAS LEVOPHED AT 5 MCG'S. HAVE BEEN ABLE TO TITRATE DOWN. HAS HAD MELANOUS STOOL THIS MORNING. WILL CONTINUE TO MONITOR AND WILL REPORT OFF TO ONCOMING RN.
[2020-07-21 06:46] LABS: Hematocrit 24.3 % (37.0-53.0); Hemoglobin 8.6 g/dL (13.5-17.5)
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
[2020-07-21 10:39] LABS: Hematocrit 21.4 % (37.0-53.0); Hemoglobin 7.5 g/dL (13.5-17.5)
--- NOTE | 2020-07-21 11:02 | NUR ---
DR. LOVING CALLED AND INFORMED THAT PATIENT HAD 500 CC MELENA AND HEMOGLOBIN JUST CAME BACK AT 6.[address] MEJIA ALSO CALLED AND INFORMED.
--- NOTE | 2020-07-21 12:01 | NUR ---
DR. MEJIA INFORMED THAT PATIENT DOES NOT HAVE ANY DVT PROPHYLAXIS. INFORMED THAT PATIENT ADMITTED THAT HE BELIEVES HE HAD A GI BLEED FROM DRINKING ALCOHOL FREQUENTLY. PATIENT STATES " BUT IF YOU TELL ANYBODY THIS THEN I WILL DENY IT". INFORMED THAT ART LINE AND SHEATH REMAIN TO R GROIN. DR. MEJIA INFORMED THAT PATIENT STATES THAT HIS DOCTOR HAD HIM STOP TAKING HIS FUROSEMIDE AND POTASSIUM A COUPLE OF MONTHS AGO AND THAT PATIENT WOULD LIKE POTASSIUM TAKEN OFF OF THE EMAR. STATED SHE WOULD TAKE A LOOK AT PATIENT'S MEDICATIONS.
--- NOTE | 2020-07-21 13:10 | NUR ---
TEMPERATURE OF 99.6 DEGREES FAHRENHEIT. PATIENT REMAINS SATTING 90% AND GREATER ON RA. HR LOW 100S TO 120S. MAP REMAINS GREATER THAN 65 ON 5 MCG/ MINUTE OF LEVOPHED. PATIENT HAVING SIGNIFICANT MELENA STOOL. DR. LOVING AND DR. MEJIA AWARE.
[2020-07-21 14:26] LABS: Hematocrit 15.7 % (37.0-53.0); Hemoglobin 5.4 g/dL (13.5-17.5)
--- NOTE | 2020-07-21 15:04 | NUR ---
07/21/20 1504 Elis Falcon History, Chart, Medications and Allergies reviewed before start of procedure.Patient confirms NPO status and agrees with scheduled surgery.3-LEAD EKG REVIEWED WITH PHYSICIAN PRIOR TO START OF PROCEDURE.MONITOR INTACT WITH CONTINUOUS PULSE OXIMETRY AND INTERMITTENT BP.O2 VIA N/C INTACT THROUGHOUT SEDATION/PROCEDURE.
--- NOTE | 2020-07-21 15:09 | NUR ---
EGD COMPLETE. NO INTERVENTION.
--- NOTE | 2020-07-21 16:00 | NUR ---
PATIENT CONFUSED AND ANXIOUS. PATIENT SATTING 90% AND GREATER ON 2 L NC. HR 120S TO 130S DUE TO PATIENT AGITATION. MAP GREATER THAN 65 ON 8 MCG/ MINUTE OF LEVOPHED. R GROIN REMAINS STABLE. RECTAL TUBE REMAINS DRAINING MELENA.
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
--- NOTE | 2020-07-21 19:15 | NUR ---
SHIFT SUMMARY PATIENT MOSTLY ALERT AND ORIENTED T/O SHIFT. PATIENT HAD SCOPE THIS SHIFT AND WAS CONFUSED AFTERWARD. PATIENT IS NOW STARTING TO BECOME MORE ORIENTED AND CALM. PATIENT HAD TMAX OF 99.6 DEGREES FAHRENHEIT. PATIENT RECEIVED PRN FENTANYL A COUPLE OF TIMES FOR COMPLAINT OF PAIN IN RLQ OF ABDOMEN. PATIENT REMAINED SATTING 90% AND GREATER ON RA TO 2 L NC. PATIENT REMAINED MOSTLY PACED. HR RANGED FROM 90S TO 140S. SBP RANGED FROM 60S TO 120S. SBP DECREASED DURING SCOPE. PATIENT HAD ALMOST A LITER OUT OF MELENA. RECTAL TUBE PLACED THIS SHIFT. DR. FINNEY FOUND A LARGE CLOT IN THE DUODENUM DURING HIS SCOPE. SURGERY AND DR. GRANADOS WERE BOTH TALKED TO BY DR. FINNEY. PLAN IS TO TAKE PATIENT BACK TO FIRE INVESTIGATION LIEUTENANT TONIGHT. PATIENT RECIEVED 2 UNITS OF PRBCS. PATIENT STILL TO RECEIVE 2 UNITS OF PLASMA AND 1 PLATELET TONIGHT. KEARNEY DRAINED 2130 MLS OF YELLOW COLORED URINE. R GROIN REMAINS STABLE- SITE IS OOZING FROM PATIENT CONTINUALLY MOVING AROUND, DESPITE NURSE INSTRUCTION. NO HEMATOMA OR BRUISING NOTED THIS SHIFT. PROTONIX REMAINS INFUSING AT 10 MLS/ HOUR, NS TKO, AND LEVOPHED AT 6 MCG/ MINUTE AT THIS TIME. PATIENT RECEIVED COMPLETE BED BATH THIS SHIFT. BED LOW, CALL LIGHT IN REACH. PATIENT APPEARS COMFORTABLE AT THIS TIME. REPORT GIVEN TO ASSUMING FIRE EXTINGUISHER MECHANIC NURSE.
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
[2020-07-21 21:44] LABS: Hematocrit 14.2 % (37.0-53.0); Hemoglobin 4.9 g/dL (13.5-17.5)
[2020-07-21 21:53] LABS: Magnesium, Blood 1.4 mg/dL (1.6-2.4); Potassium, Blood 3.5 mmol/L (3.5-5.5)
[2020-07-21 21:57] LABS: International Normalized Ratio 1.18; Prothrombin Time Results 12.5 Sec (9.7-11.5)
--- NOTE | 2020-07-22 | NUR ---
RE-ASSESSMENT NO ACUTE CHANGES FROM INITIAL ASSESSMENT. BLOOD TRANSFUSING ORDERED. PATIENT RESTING WITH EYES CLOSED, NO S/S OF DISTRESS. VITALS STABLE. WILL MONITOR.
--- NOTE | 2020-07-22 02:47 | NUR ---
IV MEDICATIONS MULTIPLE IV MEDICATIONS ORDERD, PATIENT WITH TRIPLE LUMEN PICC AND SINGLE PIV. ATTEMPT TO PLACE ULTRASOUND IV WAS MADE AND UNSUCCESSFUL BY MANAGING DIRECTOR ATLAS. MEDICATIONS GIVEN CHARTED PER COMPATIBILITY.
[2020-07-22 03:55] LABS: BASOPHILS ABSOLUTE AUTO 0.01 K/mm3 (0.00-0.23); BASOPHILS PERCENT AUTO 0 % (0-2); EOSINOPHILS ABSOLUTE AUTO 0.03 K/mm3 (0.00-0.68); EOSINOPHILS PERCENT AUTO 0 % (0-6); Hematocrit 18.8 % (37.0-53.0); Hemoglobin 6.6 g/dL (13.5-17.5); IMMATURE GRAN ABSOLUTE AUTO 0.07 K/mm3 (0.00-0.10); IMMATURE GRAN PERCENT AUTO 1 % (0-1); LYMPHOCYTES ABSOLUTE AUTO 0.92 K/mm3 (0.84-5.20); LYMPHOCYTES PERCENT AUTO 12 % (21-46); MONOCYTES ABSOLUTE AUTO 0.88 K/mm3 (0.16-1.47); MONOCYTES PERCENT AUTO 11 % (4-13); Mean Corpuscular HGB 30.4 pg (26.0-34.0); Mean Corpuscular HGB Conc 35.1 g/dL (31.5-36.5); Mean Corpuscular Volume 87 fL (80-100); NEUTROPHILS ABSOLUTE AUTO 5.98 K/mm3 (1.96-9.15); NEUTROPHILS PERCENT AUTO 76 % (41-73); Platelet Count 123 K/mm3 (150-400); RDW Coefficient Variation 15.5 % (11.7-14.2); RDW Standard Deviation 48.2 fL (35.1-46.3); Red Blood Cell Count 2.17 M/mm3 (4.30-5.90); White Blood Cell Count 7.89 K/mm3 (4.00-11.30)
--- NOTE | 2020-07-22 04:00 | NUR ---
RE-ASSESSMENT NO ACUTE CHANGES FROM PREVIOUS ASSESSMENT. PATIENT CONFUSED, BLOOD TRANFUSIONS COMPLETED, AWAITING LAB RESULTS AT THIS TIME. GROIN SITE WITH ARTERIAL LINE/SHEATH IN PLACE, SITE IS SOFT. PEDAL PULSES PALPABLE. VITALS STABLE CHARTED. LEVOPHED REMAINS OFF, PRECEDEX INFUSING FOR AGITATION.
[2020-07-22 04:17] LABS: Alanine Aminotransfer (ALT/SGP 11 U/L (12-78); Alk Phos 37 U/L (50-136); Anion Gap 5 mmol/L (6-16); Aspartate Aminotrans (AST/SGOT 10 U/L (12-37); Bilirubin, Total 1.2 mg/dL (0.1-1.0); Blood Urea Nitrogen 24 mg/dL (8-24); Bun/Creatinine Ratio 34.1 (12.0-20.0); CO2, Blood 26 mmol/L (21-32); Chloride, Blood 107 mmol/L (98-108); Glomerular Filtration Rate >60 (60-); Glucose, Blood 135 mg/dL (70-99); Potassium, Blood 3.8 mmol/L (3.5-5.5); Sodium, Blood 138 mmol/L (136-145)
[2020-07-22 04:33] LABS: International Normalized Ratio 1.11; Prothrombin Time Results 11.8 Sec (9.7-11.5)
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
--- NOTE | 2020-07-22 08:00 | NUR ---
INITIAL ASSESSMENT PATIENT INITIALLY BELIEVED HE WAS IN BUSY. PATIENT REORIENTED EASILY. PATIENT ANSWERED THE REST OF THE ORIENTATION QUESTIONS CORRECTLY. PATIENT CALM AND COOPERATIVE AT THIS TIME. PATIENT CAN BECOME IRRITATED AT TIMES. PATIENT AFEBRILE. PATIENT AWARE OF R LEG RESTRICTIONS FROM HAVING SHEATH AND ARTERIAL LINE IN PLACE; PATIENT DOES NEED FREQUENT REMINDING. PATIENT WEAK BUT ABLE TO HELP WITH REPOSITIONING. PATIENT SATTING 90% AND GREATER ON RA. UPPER LUNG LOBES CLEAR, RLL DIMINISHED, LLL CRACKLES. PATIENT PACED. HR 70S TO 80S. MAP GREATER THAN 65 ON LEVOPHED AT 2 MCG/ MINUTE. 2+ EDEMA NOTED IN BUES. DEPENDENT EDEMA NOTED IN THIGHS. NONPITTING L FA EDEMA FROM PREVIOUS IV GOING BAD. ABDOMEN MODERATELY DISTENDED, SOFT, TENDER IN RLQ. HYPERACTIVE BS NOTED. PATIENT NPO. RECTAL TUBE IN PLACE DRAINING SMALL AMOUNT OF BLACK STOOL THIS AM. KEARNEY IN PLACE DRAINING YELLOW COLORED URINE. PATIENT SELF CATHS AT HOME FOR URINARY STRICTURE. R GROIN SITE OOZING SLIGHTLY. NO HEMATOMA OR BRUISING NOTED. PRBCS INFUSING. PROTONIX INFUSING AT 10 MLS/ HOUR, NS TKO, LEVOPHED AT 2 MCG/ MINUTE, AMIODARONE AT 0.5 MG/ MINUTE, PRECEDEX AT 0.4 MCG/ KG/ HOUR. BED LOW, CALL LIGHT IN REACH. WILL CONTINUE TO MONITOR PATIENT FREQUENTLY THROUGHOUT SHIFT.
--- NOTE | 2020-07-22 10:33 | NUR ---
DR. MEJIA UPDATED ON PATIENT STATUS. INFORMED THAT NIGHT RN REPORTED PATIENT HAD 300 MLS OF MELENA OVERNIGHT PLUS SOME THAT LEAKED FROM RECTUM FROM RECTAL TUBE. LAB ORDERS RECEIVED.
[2020-07-22 11:44] LABS: Hematocrit 24.4 % (37.0-53.0); Hemoglobin 8.6 g/dL (13.5-17.5)
[2020-07-22 12:04] LABS: International Normalized Ratio 1.1; Prothrombin Time Results 11.7 Sec (9.7-11.5)
--- NOTE | 2020-07-22 12:40 | NUR ---
PATIENT A AND O X 4. AFEBRILE. NO COMPLAINTS OF PAIN. HR 60S TO 70S. SBP LOW 100S TO 1-TEENS. BLOOD SUGAR OF 143; NO COVERAGE INDICATED. NO OTHER ACUTE CHANGES TO NOTE ON AT THIS TIME. WILL CONTINUE TO MONITOR.
--- NOTE | 2020-07-22 16:00 | NUR ---
PATIENT AFEBRILE. NO COMPLAINTS OF PAIN. PATIENT REMAINS SATTING 90% AND GREATER ON RA. HR 60S TO 70S. BP STABLE; LEVOPHED ON SB. NO CHANGE IN R GROIN. NO ACUTE CHANGES TO NOTE ON. WILL CONTINUE TO MONITOR.
--- NOTE | 2020-07-22 16:19 | NUR ---
Pt resting in bed upon arrival. Pt reports manageable discomfort in his anus area due to rectal tubel. Pt denies dyspnea at this time. Offered therapeutic listening as Pt expresses frustrations due to having to wait until Friday for his procedure. Pt reports he had bills he needs to pay. Pt plans to call [facility] to see if they can assist. Pt would like to speak with Pt advocate on Friday. Continued therapeutic listening and validated concerns. Spoke with Bedside RN Ramila and discussed case. No ICU beds available in other [facility] to accept Pt to receive procedure sooner. Dr Gray will be available on Friday. Palliative Care will remain available.
--- NOTE | 2020-07-22 17:50 | NUR ---
SHIFT SUMMARY PATIENT REMAINED ALERT AND ORIENTED. PATIENT REMAINED AFEBRILE. PATIENT HAD NO COMPLAINTS OF PAIN DURING THIS SHIFT. PATIENT REMAINED WEAK BUT ABLE TO HELP WITH REPOSITIONING. PATIENT REMAINED SATTING 90% AND GREATER ON RA. PATIENT REMAINED IN PACED RHYTHM, HR 60S TO 80S. PATIENT STARTED SHIFT ON LEVOPHED AT 2 MCG/ MINUTE AND HAS BEEN ON STANDBY FOR SEVERAL HOURS NOW. PATIENT HAD SMALL AMOUNT OF BLACK STOOL OUT FROM RECTAL TUBE. PATIENT REMAINED NPO. KEARNEY DRAINED ADEQUATE AMOUNT OF YELLOW COLORED URINE. R GROIN REMAINS STABLE- NO BLEEDING. PROTONIX INFUSING AT 10 MLS/ HOUR, NS TKO, AMIODARONE AT 0.5 MG/ MINUTE, PRECEDEX AT 0.4 MCG/ KG/ HOUR. PATIENT RECEIVED 2 PRBCS THIS AM. LAST HEMOGLOBIN 8.6. BLOOD SUGARS RANGED FROM 143- 155. PATIENT APPEARS COMFORTABLE AT THIS TIME. BED LOW, CALL LIGHT IN REACH. WILL BE GIVING REPORT TO ONCOMING CUTTER OPERATOR TILE NURSE SHORTLY.
[2020-07-22 18:14] LABS: Hematocrit 24.3 % (37.0-53.0); Hemoglobin 8.3 g/dL (13.5-17.5)
--- NOTE | 2020-07-22 19:19 | NUR ---
ASSUMPTION OF CARE RECEIVED REPORT FROM PABLO URBAN. ASSUMED CARE OF PATIENT. PATIENT A/O. VITALS STABLE. DENIES DISCOMFORTS OR NEEDS. CALL LIGHT IN REACH.
--- NOTE | 2020-07-22 22:48 | NUR ---
ADLS PATIENT WITH LARGE AMOUNT OF DARK STOOL DRAINING AROUND RECTAL TUBE, CLOTS VISUALIZED. PATIENT WITH C/O PAIN AROUND RECTAL TUBE, CRYING OUT ANYTIME IT IS POSITIONED. RECTAL TUBE REMOVED. RIGHT GROIN SITE WITH ART-LINE DRESSING CHANGED.
[2020-07-22 23:29] LABS: Hematocrit 21.2 % (37.0-53.0); Hemoglobin 7.4 g/dL (13.5-17.5)
--- NOTE | 2020-07-23 | NUR ---
RE-ASSESSMENT NO ACUTE CHANGES FROM INITIAL ASSESSMENT. VITALS STABLE CHARTED. LEVOPHED TITRATED FOR B/P CONTROL. CALL LIGHT IN REACH.
[2020-07-23 03:44] LABS: BASOPHILS ABSOLUTE AUTO 0.02 K/mm3 (0.00-0.23); BASOPHILS PERCENT AUTO 0 % (0-2); EOSINOPHILS ABSOLUTE AUTO 0.11 K/mm3 (0.00-0.68); EOSINOPHILS PERCENT AUTO 1 % (0-6); Hematocrit 21.6 % (37.0-53.0); Hemoglobin 7.3 g/dL (13.5-17.5); IMMATURE GRAN ABSOLUTE AUTO 0.08 K/mm3 (0.00-0.10); IMMATURE GRAN PERCENT AUTO 1 % (0-1); LYMPHOCYTES ABSOLUTE AUTO 1.33 K/mm3 (0.84-5.20); LYMPHOCYTES PERCENT AUTO 13 % (21-46); MONOCYTES ABSOLUTE AUTO 0.76 K/mm3 (0.16-1.47); MONOCYTES PERCENT AUTO 7 % (4-13); Mean Corpuscular HGB 29.3 pg (26.0-34.0); Mean Corpuscular HGB Conc 33.8 g/dL (31.5-36.5); Mean Corpuscular Volume 87 fL (80-100); Mean Platelet Volume 10.6 fL (9.1-12.4); NEUTROPHILS ABSOLUTE AUTO 8.05 K/mm3 (1.96-9.15); NEUTROPHILS PERCENT AUTO 78 % (41-73); NRBC ABSOLUTE 0.03 K/mm3 (0.00-0.02); NRBC Auto 0.3 /100 WBC (0.0-0.2); Platelet Count 162 K/mm3 (150-400); RDW Coefficient Variation 17.2 % (11.7-14.2); Red Blood Cell Count 2.49 M/mm3 (4.30-5.90); White Blood Cell Count 10.35 K/mm3 (4.00-11.30)
[2020-07-23 04:02] LABS: International Normalized Ratio 1.07; Prothrombin Time Results 11.4 Sec (9.7-11.5)
[2020-07-23 04:17] LABS: Anion Gap 6 mmol/L (6-16); Blood Urea Nitrogen 25 mg/dL (8-24); Bun/Creatinine Ratio 40.1 (12.0-20.0); CO2, Blood 23 mmol/L (21-32); Calcium, Blood 7.7 mg/dL (8.5-10.1); Chloride, Blood 109 mmol/L (98-108); Creatinine, Blood 0.62 mg/dL (0.60-1.20); Glomerular Filtration Rate >60 (60-); Glucose, Blood 173 mg/dL (70-99); Magnesium, Blood 1.9 mg/dL (1.6-2.4); Phosphorus, Blood 2.2 mg/dL (2.5-4.9); Potassium, Blood 4.1 mmol/L (3.5-5.5); Sodium, Blood 138 mmol/L (136-145)
--- NOTE | 2020-07-23 06:27 | NUR ---
SHIFT SUMMARY PATIENT TACHYCARDIC, LEVOPHED TURNED OFF. REPORTED PATIENT'S LABS AND VITAL SIGNS TO DR. MEJIA. RECEIVED NEW ORDERS. AMIODARONE RESTARTED AT 0.5MG/MIN, PATIENT WILL RECEIVE ANOTHER UNIT OF BLOOD. PATIENT INCONTINENT OF MULTIPLE LOOSE, MAROON STOOLS WITH VISIBLE CLOTS ALSO REPORTED TO DR. MEJIA. VITALS ARE CHARTED. CALL LIGHT IN REACH.
--- NOTE | 2020-07-23 08:00 | NUR ---
INITIAL ASSESSMENT PATIENT ALERT AND ORIENTED X 4. PATIENT CALM AND COOPERATIVE BUT CAN BE IRRITABLE AT TIMES. PATIENT FRUSTRATED THAT NO SURGEON OR IR DOCTOR HERE THIS WEEKEND TO FIX HIS GI BLEED SO HE COULD GET HOME SOONER. PATIENT ON R SHEATH/ ARTERIAL LINE IN PLACE. PATIENT AWARE OF R LEG ACTIVITY RESTRICTIONS BUT DOES NEED REMINDERS OCCASIONALLY STILL. PATIENT HAS TEMP OF 99.3 DEGREES FAHRENHEIT. PATIENT COMPLAINING OF PAIN IN BACK, R GROIN AND RLQ OF ABDOMEN. PATIENT BEING GIVEN PRN FENTANYL TO HELP WITH PAIN. PATIENT ALSO BEING REPOSITIONED Q2H AND PRN. PATIENT SATTING 90% AND GREATER ON RA. LUNGS CLEAR THROUGHOUT; DIMINISHED IN LOWER LOBES. PATIENT PACED. HR IN THE 120S. BP STABLE WITH LEVOPHED OFF. 2+ PITTING EDEMA NOTED TO BUES. DEPENDENT EDEMA TO THIGHS. LFA SLIGHTLY EDEMATOUS FROM IV THAT INFILTRATED BUT DOES LOOK IMPROVED TODAY. ABDOMEN MODERATELY DISTENDED, SOFT, TENDER TO PALPATION. HYPERACTIVE BS NOTED. PATIENT HAD LARGE, BLACK/ MAROON CLOTS BM THIS AM. KEARNEY DRAINING YELLOW COLORED URINE. R GROIN WNL- NO BLEEDING, BRUISING, OR HEMATOMA NOTED. ARTERIAL LINE REMAINS IN PLACE. REDDENED SORES BY SIDE OF COCCYX NOTED. PROTONIX INFUSING AT 10 MLS/ HOUR, NS TKO, LEVOPHED OFF, PRECEDEX OFF, AMIODARONE AT 0.5 MG/ MINUTE. WILL BE STARTING 1 UNITS PRBCS ONCE ARRIVE FROM BLOOD BANK. BED LOW, CALL LIGHT IN REACH. WILL CONTINUE TO MONITOR PATIENT FREQUENTLY THROUGHOUT SHIFT.
--- NOTE | 2020-07-23 09:55 | NUR ---
DR. MEJIA IN ROOM TO SEE PATIENT. NURSE UPDATED DOCTOR. INFORMED THAT PRECEDEX OFF SINCE ARRIVED ON SHIFT. INFORMED THAT PATIENT HAD LARGE CLOTTED STOOL THIS AM. INFORMED THAT PATIENT RECEIVING 1 UNITS PRBCS. INFORMED THAT AMIODARONE REMAINS AT 0.5 MG/ MINUTE. INFORMED THAT AM PHOS LEVEL 2.2. INFORMED THAT PATIENT ON NO MAINTENANCE FLUIDS AND IS NPO. INFORMED THAT BLOOD SUGARS AC; ORDER RECEIVED TO CHANGE TO Q6H.
[2020-07-23 11:53] LABS: Hematocrit 20.9 % (37.0-53.0); Hemoglobin 7.3 g/dL (13.5-17.5)
--- NOTE | 2020-07-23 12:00 | NUR ---
PATIENT HAS TEMP OF 100.[address] MEJIA INFORMED. A COUPLE BLANKETS REMOVED FROM PATIENT AND ROOM TEMP TURNED DOWN SOME. PATIENT REMAINS SATTING 90% AND GREATER ON RA. HR LOW 100S. SBP 140S TO 150S. PATIENT HAS MINIMAL URINE OUTPUT; TOTAL OF 185 MLS FOR ENTIRE DAY SHIFT THUS FAR. KEARNEY FLUSHED AND APPEARS PATENT. DR. MEJIA INFORMED. BED LOW, CALL LIGHT IN REACH. NO OTHER ACUTE CHANGES TO NOTE ON AT THIS TIME.
--- NOTE | 2020-07-23 12:14 | NUR ---
DR. MEJIA INFORMED OF H AND H. ORDERS RECEIVED.
--- NOTE | 2020-07-23 12:45 | NUR ---
DR. MEJIA INFORMED THAT BLADDER SCAN SHOWED 133 MLS OF URINE IN BLADDER. INFORMED THAT BLOOD PRESSURE HOLDING WELL AND THAT PATIENT IS EDEMATOUS. STATED SHE WOULD ORDER LASIX OT.
[2020-07-23 15:57] LABS: Hematocrit 13.7 % (37.0-53.0); Hemoglobin 4.7 g/dL (13.5-17.5)
--- NOTE | 2020-07-23 16:00 | NUR ---
PATIENT SATTING 90% AND GREATER ON 4 L NC. H AND H CAME BACK CRITICALLY LOW. DR. MEJIA AWARE AND ORDERS BEING PLACED FOR BLOOD PRODUCTS. HR LOW 100S TO 1-TEENS. SBP LOW 100S TO 1-TEENS. URINE OUTPUT HAS IMPROVED SINCE OT IV LASIX GIVEN. PATIENT HAD ANOTHER LIQUID BLOODY STOOL.
[2020-07-23 16:14] LABS: Platelet Count 76 K/mm3 (150-400)
--- NOTE | 2020-07-23 18:56 | NUR ---
SHIFT SUMMARY PATIENT REMAINED ALERT AND ORIENTED X 4. PATIENT GIVEN PRN FENTANYL FOR COMPLAINTS OF PAIN IN BACK, R GROIN AND RLQ OF ABDOMEN. PATIENT HAD TMAX OF 100.7 DEGREES FAHRENHEIT. PATIENT SATTED 90% AND GREATER ON RA TO 4 L NC. PATIENT CURRENTLY ON 2 L NC. PATIENT PLACED ON 4 L NC WHEN DESATTED TO 86% AROUND THE TIME THAT LAB CALLED BACK WITH CRITICAL H AND H LEVELS. PATIENT REMAINED PACED. HR LOW 100S TO 120S MOSTLY. BP STABLE WITH LEVOPHED OFF ALL DAY. PATIENT HAD 3 LARGE BLACK/ MAROON BLOODY STOOLS THIS SHIFT. FIRST BM WAS FULL OF CLOTS. 2ND AND 3RD BM WERE THICK LIQUID. PATIENT REMAINED NPO EXCEPT WATER SWABS. KEARNEY DRAINED ADEQUATE AMOUNT OF YELLOW COLORED URINE AFTER 20 MG IV LASIX OT GIVEN. NO CHANGE TO SKIN. PROTONIX INFUSING AT 10 MLS/ HOUR, NS TKO, AMIODARONE AT 0.5 MG/ MINUTE. BLOOD SUGARS 129 TO 169; NO COVERAGE INDICATED. H AND H CAME DOWN TO 4.7 AND 13.7 THIS SHIFT. PATIENT HAS BEEN GIVEN 2 PRBCS, 2 PLASMA AND 1 PLATELET THIS SHIFT. PATIENT RECEIVING LAST PRBC AT THIS TIME. ORDERS FOR MORE LABS IN NURSE NOTIFY. BED LOW, CALL LIGHT IN REACH. REPORT WILL BE GIVEN TO ONCOMING SOLUTION DESIGN AND ANALYSIS MANAGER NURSE SHORTLY.
--- NOTE | 2020-07-23 19:33 | NUR ---
ASSUMPTION OF CARE RECEIVED REPORT FROM PABLO URBAN. ASSUMED CARE OF PATIENT. PATIENT IS A/O, PRBC INFUSING, VITALS STABLE CHARTED.
[2020-07-23 22:02] LABS: Hematocrit 18.2 % (37.0-53.0); Hemoglobin 6.2 g/dL (13.5-17.5); Mean Platelet Volume 10.7 fL (9.1-12.4); Platelet Count 128 K/mm3 (150-400)
[2020-07-23 22:14] LABS: International Normalized Ratio 1.21; Prothrombin Time Results 12.8 Sec (9.7-11.5)
--- NOTE | 2020-07-23 23:13 | NUR ---
LAB RESULTS RECEIVED PATIENT'S LAB RESULTS. AWAITING DR. MEJIA TO REVIEW PATIENT'S CURRENT H&H. PATIENT CURRENTLY STABLE, WILL CONTINUE TO MONITOR.
--- NOTE | 2020-07-24 | NUR ---
REASSESSMENT NO ACUTE CHANGES FROM INITIAL ASSESSMENT. REPORTED PATIENT'S LABS TO DR. MEJIA, RECEIVED NEW ORDERS TO TRANSFUSE PRBC AND FFP. VITALS STABLE CHARTED. PATIENT DENIES DISCOMFORTS AT THIS TIME, CALL LIGHT IN REACH.
[2020-07-24 05:23] LABS: BASOPHILS ABSOLUTE AUTO 0.02 K/mm3 (0.00-0.23); BASOPHILS PERCENT AUTO 0 % (0-2); EOSINOPHILS ABSOLUTE AUTO 0.03 K/mm3 (0.00-0.68); EOSINOPHILS PERCENT AUTO 0 % (0-6); Hematocrit 22.7 % (37.0-53.0); Hemoglobin 7.9 g/dL (13.5-17.5); IMMATURE GRAN ABSOLUTE AUTO 0.19 K/mm3 (0.00-0.10); IMMATURE GRAN PERCENT AUTO 2 % (0-1); LYMPHOCYTES ABSOLUTE AUTO 0.75 K/mm3 (0.84-5.20); LYMPHOCYTES PERCENT AUTO 9 % (21-46); MONOCYTES ABSOLUTE AUTO 1.02 K/mm3 (0.16-1.47); MONOCYTES PERCENT AUTO 12 % (4-13); Mean Corpuscular HGB 29.9 pg (26.0-34.0); Mean Corpuscular HGB Conc 34.8 g/dL (31.5-36.5); Mean Corpuscular Volume 86 fL (80-100); Mean Platelet Volume 10.1 fL (9.1-12.4); NEUTROPHILS ABSOLUTE AUTO 6.69 K/mm3 (1.96-9.15); NEUTROPHILS PERCENT AUTO 77 % (41-73); NRBC ABSOLUTE 0.08 K/mm3 (0.00-0.02); NRBC Auto 0.9 /100 WBC (0.0-0.2); Platelet Count 121 K/mm3 (150-400); RDW Coefficient Variation 14.3 % (11.7-14.2); RDW Standard Deviation 43.4 fL (35.1-46.3); Red Blood Cell Count 2.64 M/mm3 (4.30-5.90)
[2020-07-24 05:35] LABS: International Normalized Ratio 1.17; Prothrombin Time Results 12.4 Sec (9.7-11.5)
[2020-07-24 05:49] LABS: Alanine Aminotransfer (ALT/SGP 12 U/L (12-78); Albumin, Blood 2.1 g/dL (3.4-5.0); Alk Phos 36 U/L (50-136); Anion Gap 5 mmol/L (6-16); Aspartate Aminotrans (AST/SGOT 13 U/L (12-37); Bilirubin, Total 1.6 mg/dL (0.1-1.0); Blood Urea Nitrogen 26 mg/dL (8-24); Bun/Creatinine Ratio 35.6 (12.0-20.0); CO2, Blood 26 mmol/L (21-32); Calcium, Blood 7.6 mg/dL (8.5-10.1); Chloride, Blood 109 mmol/L (98-108); Creatinine, Blood 0.73 mg/dL (0.60-1.20); Glomerular Filtration Rate >60 (60-); Glucose, Blood 157 mg/dL (70-99); Magnesium, Blood 1.8 mg/dL (1.6-2.4); Phosphorus, Blood 2.8 mg/dL (2.5-4.9); Potassium, Blood 3.2 mmol/L (3.5-5.5); Sodium, Blood 140 mmol/L (136-145); Total Protein, Blood 4.1 g/dL (6.4-8.2)
--- NOTE | 2020-07-24 06:15 | NUR ---
SHIFT SUMMARY PATIENT REMAINED A/O, STABLE VITAL SIGNS CHARTED. LABS RESULTED AND PRBC TRANSFUSED CHARTED. PATIENT CONTINUES TO BE INCONTINENT OF MAROON, DARK STOOL. MORNING POTASSIUM REPORTED TO DR. MEJIA WITH NEW ORDERS RECEIVED. WILL TREAT PRESCRIBED.
--- NOTE | 2020-07-24 07:15 | NUR ---
Assumed care of pt at 0715. Report received from Earnestine URBAN. Pt A&O x 2. Answers questions. Follows commands. Verbalizes needs. Pt on room air. SpO2 90% or greater. Lungs clear t/o, dim in bases. Paced per monitor, with HR 105-110. BP stable per art line inserted in right femoral artery. Dressing has small amount of drainage underneath, but is intact. No hematoma noted at site. Color, sensation, pulses, capillary refill equal BLE. Dill catheter in place, draining clear, yellow urine. Bed in reverse trendelenberg position, with no groin flexion.
--- NOTE | 2020-07-24 07:45 | NUR ---
Dr Burns in to see pt. Inquired when provider would like H&H checked. Provider states no new orders and defers to facilities plant engineer.
--- NOTE | 2020-07-24 08:00 | NUR ---
Call placed to Dr Noland to notify that patient continues to have bloody bowel movements with clots and requiring several units of PRBCs per shift. Provider states he will discuss case with GI doctor and assess need to bring patient back to mechanical shop laborer today.
--- NOTE | 2020-07-24 08:13 | NUR ---
Pt raised head of bed. Pt educated that this should not be done due to arterial sheath in rigth femoral artery. Pt states "Fine. Just give me my clothes and I will get dressed and leave". Pt educated that this is not a good choice due to amount of bleeding he is having.
--- NOTE | 2020-07-24 08:30 | NUR ---
Dr Omalley in unit. Inquired about H&H checks. New orders provided.
--- NOTE | 2020-07-24 11:00 | NUR ---
Dr Noland in to see pt. Provider states plan to take patint back to the terrazzo laborer.
[2020-07-24 11:39] LABS: Hematocrit 20.8 % (37.0-53.0); Hemoglobin 7.2 g/dL (13.5-17.5)
--- NOTE | 2020-07-24 14:03 | NUR ---
Pt remains in unit. Irritable. Expressess discontentment when this RN assess groin site. Educated on neccessity of groin site assessment. Pt declines instruction saying "I've bleed a bunch in my life, I'm not gonna bleed just laying here".
--- NOTE | 2020-07-24 14:31 | NUR ---
Patient to shipyard laborer
--- NOTE | 2020-07-24 17:36 | NUR ---
Pt back from geotechnical laboratory technician. Per report, several coils placed to gastroduodenal artery. Pt has right femoral artery access site, free of sheath. No bruising or hematoma to site. Dime-sized amount of red drainage to site. Color, sensation, pulses, capillary refill equal BLE. Tachycardic per monitor. BP stable. Pt alert, oriented, and cooperative with care.
[2020-07-24 18:40] LABS: Hematocrit 18.2 % (37.0-53.0); Hemoglobin 6.1 g/dL (13.5-17.5)
--- NOTE | 2020-07-24 19:12 | NUR ---
SUMMARY At this time, pt is A&O x 2. Pleasant and cooperative with care. Answers questions. Follows commands. Verbalizes needs. Tachycardic per monitor. Amiodarone IV per orders. Call placed to Dr Omalley to notify of HGB 6.1. Pt on room air. No changes to groin site. Pt had two continent bowel movements of liquid maroon stool. Report given to Earnestine URBAN.
[2020-07-25 00:33] LABS: Hematocrit 19.6 % (37.0-53.0); Hemoglobin 6.6 g/dL (13.5-17.5)
--- NOTE | 2020-07-25 04:00 | NUR ---
REASSESSMENT NO ACUTE CHANGES FROM PREVIOUS ASSESSMENT. PRBC INFUSING, VITALS STABLE. NO S/S OF DISTRESS. CALL LIGHT IN REACH.
--- NOTE | 2020-07-25 06:02 | NUR ---
SHIFT SUMMARY PATIENT CONTINUES TO HAVE LIQUID, MELANA STOOL. PATIENT IS NOW CONTINENT OF STOOL AND USING BEDPAN. PRBCS INFUSED, VITALS STABLE. WILL RECHECK LABS ORDERED.
[2020-07-25 06:37] LABS: Hematocrit 24.4 % (37.0-53.0); Hemoglobin 8.3 g/dL (13.5-17.5)
[2020-07-25 07:02] LABS: Magnesium, Blood 1.9 mg/dL (1.6-2.4)
[2020-07-25 07:03] LABS: Anion Gap 5 mmol/L (6-16); Blood Urea Nitrogen 23 mg/dL (8-24); Bun/Creatinine Ratio 30.2 (12.0-20.0); CO2, Blood 25 mmol/L (21-32); Calcium, Blood 7.4 mg/dL (8.5-10.1); Chloride, Blood 109 mmol/L (98-108); Creatinine, Blood 0.76 mg/dL (0.60-1.20); Glomerular Filtration Rate >60 (60-); Glucose, Blood 165 mg/dL (70-99); Phosphorus, Blood 2.9 mg/dL (2.5-4.9); Potassium, Blood 3.4 mmol/L (3.5-5.5); Sodium, Blood 139 mmol/L (136-145)
--- NOTE | 2020-07-25 08:00 | NUR ---
INITIAL ASSESSMENT PATIENT ALERT AND ORIENTED X 4. PATIENT CALM AND COOPERATIVE AT THIS TIME. PATIENT CAN BE LABILE AND IRRITATED AT TIMES. PATIENT HAS TEMP OF 99.0 DEGREES FAHRENHEIT. PATIENT WEAK BUT ABLE TO HELP REPOSITION IN BED. R LEG RESTRICTIONS IN PLACE; ANGIOSEAL IN PLACE. NO BLEEDING, BRUISING, HEMATOMA NOTED. PATIENT GIVEN PRN FENTANYL FOR COMPLAINT OF RLQ ABDOMINAL AND LOWER BACK PAIN. PATIENT SATTING 90% AND GREATER ON RA. LUNGS CLEAR, LOWER LOBES DIMINISHED. PATIENT PACED, HR IN THE 80S. SBP LOW 100S TO 120S. LEVOPHED REMAINS OFF. PATIENT EDEMATOUS IN BUES AND BLES. ABDOMEN MODERATELY DISTENDED, SOFT, TENDER, WITH HYPERACTIVE BS NOTED. PATIENT HAVING LIQUID MAROON STOOL. PATIENT GIVEN PRN ANTIEMETIC THIS AM FOR COMPLAINTS OF NAUSEA. KEARNEY DRAINING YELLOW COLORED URINE. REDDENED AREA NOTED ON COCCYX. PROTONIX INFUSING AT 10 MLS/ HOUR, AMIODARONE AT 0.5 MG/ MINUTE, CLINIMIX AT 100 MLS/ HOUR. BED LOW, CALL LIGHT IN REACH. WILL CONTINUE TO MONITOR PATIENT FREQUENTLY THROUGHOUT SHIFT.
--- NOTE | 2020-07-25 09:00 | NUR ---
UPDATED DR. DALTON ON PATIENT STATUS. INFORMED THAT PATIENT HAS TEMP OF 99.0 DEGREES FAHRENHEIT THIS AM. INFORMED INFORMED OF POTASSIUM OF 3.4 AND H&H OF 8.3 AND 24.4. INFORMED THAT PATIENT HAD 3 BLOODY STOOLS ON SOLAR CREW MEMBER. INFORMED THAT PATIENT REMAINS ON AMIODARONE AT 0.5 MG/ MINUTE. INFORMED THAT IT APPEARS PACER MAY NOT HAVE UPPER LIMIT SET BECAUSE OF PREVIOUS TACHY RHYTHMS REQUIRING THE AMIODARONE.
--- NOTE | 2020-07-25 12:00 | NUR ---
PATIENT AFEBRILE. NO COMPLAINTS. HR 70S TO 80S. SBP LOW 100S TO 1-TEENS. BLOOD SUGAR 129; NO COVERAGE INDICATED. NO OTHER ACUTE CHANGES TO NOTE ON AT THIS TIME. WILL CONTINUE TO MONITOR.
[2020-07-25 12:49] LABS: Hematocrit 23.2 % (37.0-53.0); Hemoglobin 8.3 g/dL (13.5-17.5)
--- NOTE | 2020-07-25 15:50 | NUR ---
PATIENT EATING BROTH IN BED. PICC LINE PULLED OUT FROM 3 TO ORIGINAL 8 CM PER PICC RN TATI GAMEZ AND DR. COTTRELL. CHEST XRAY OBTAINED AFTERWARD. R GROIN SITE REMAINS STABLE. PATIENT REMAINS SATTING 90% AND GREATER ON RA. HR 70S TO 80S. SBP 90S TO 120S. BLOOD SUGAR 120; COVERAGE NOT INDICATED. NO OTHER ACUTE CHANGES TO NOTE ON AT THIS TIME. WILL CONTINUE TO MONITOR.
--- NOTE | 2020-07-25 16:05 | NUR ---
SHIFT SUMMARY PATIENT HAS REMAINED ALERT AND ORIENTED X 4. TMAX OF 99.0 DEGREES FAHRENHEIT. PATIENT WEAK BUT REMAINS ABLE TO ASSIST WITH REPOSITIONING. PATIENT REMAINS SATTING 90% AND GREATER ON RA. PATIENT HAS REMAINED PACED WITH HR 70S TO 80S. SBP 90S TO 120S. PATIENT INCREASED TO CLEAR LIQUID DIET THIS SHIFT. PATIENT HAS HAD 3 MEDIUM, LIQUID, MAROON STOOLS THIS SHIFT. PATIENT GIVEN PRN NAUSEA MEDICATION THIS AM. NO OTHER COMPLAINTS OF NAUSEA. PATIENT GIVEN PRN FENTANYL A COUPLE OF TIMES FOR COMPLAINTS OF BACK PAIN, R GROIN SITE PAIN AND RLQ OF ABD PAIN. KEARNEY DRAINED ADEQUATE AMOUNT OF YELLOW COLORED URINE. NO CHANGE TO SKIN; PATIENT REPOSITIONED THROUGHOUT SHIFT. PROTONIX INFUSING AT 10 MLS/ HOUR, CLINIMIX AT 100 MLS/ HOUR. PATIENT APPEARS COMFORTABLE AT THIS TIME. BED LOW, CALL LIGHT IN REACH. REPORT HAS BEEN GIVEN TO ASSUMING PCU NURSE. PATIENT WILL BE TRANSPORTED TO PCU 14 SHORTLY.
[2020-07-25 18:21] LABS: Hemoglobin 7.9 g/dL (13.5-17.5)
--- NOTE | 2020-07-25 18:54 | NUR ---
PATIENT TRANSFERRED SUCCESSFULLY TO PCU, ROOM 14.
--- NOTE | 2020-07-26 07:58 | NUR ---
SHIFT SUMMARY PT WAS COOPERATIVE WITH CARE BUT BECOMING MORE ANGERY ABOUT HIS CONDTION. VITALS SHOWED A LOW BP RANGING FROM 90 TO 111 SYSTOLIC. HR WAS STEADY AT 100BPM. PT WAS ON ROOM AIR WITH O2 SATS IN THE 90'S. ONLY TWO O2 SATS WERE TAKEN DUE TO EQUIPMENT FAILURE. PT HAD A HGB OF 6.0, TRANSFUSED 1 UNIT PRBC. STOOLS WERE LIQUID AND MAROON IN COLOR, APPEARANCE AND CONSISTANCY OF DARK COLORED BLOOD. PT STATES PAIN AT GROIN INSERTION SITE, VERY TENDER TO TOUCH, NO REDNESS, SWELLING, RIGIDITY, OR BRUSING. BOWEL TONES WERE HYPERACTIVE T/O. MILD PAIN IN LOWER ABD. WILL CONTINUE TO MONITOR UNTIL SHIFT CHANGE.
[2020-07-26 08:26] LABS: Hematocrit 21.9 % (37.0-53.0); Hemoglobin 7.2 g/dL (13.5-17.5)
[2020-07-26 08:38] LABS: Anion Gap 5 mmol/L (6-16); Blood Urea Nitrogen 22 mg/dL (8-24); Bun/Creatinine Ratio 33.3 (12.0-20.0); CO2, Blood 25 mmol/L (21-32); Calcium, Blood 7.3 mg/dL (8.5-10.1); Chloride, Blood 106 mmol/L (98-108); Creatinine, Blood 0.66 mg/dL (0.60-1.20); Glomerular Filtration Rate >60 (60-); Glucose, Blood 110 mg/dL (70-99); Magnesium, Blood 1.9 mg/dL (1.6-2.4); Phosphorus, Blood 2.8 mg/dL (2.5-4.9); Potassium, Blood 3.6 mmol/L (3.5-5.5); Sodium, Blood 136 mmol/L (136-145); Triglycerides 136 mg/dL (30-160)
[2020-07-26 12:38] LABS: Hematocrit 22.3 % (37.0-53.0); Hemoglobin 7.5 g/dL (13.5-17.5)
--- NOTE | 2020-07-26 12:48 | NUR ---
PLACED Jul.05 DEVICE INTERROGATION DONE BY DR CRAMER ON FRONT OF PT'S CHART FOR HOSPITALIST REVIEW OF UPPER LIMIT RATE R/T HOSPITALIST ORDER FOR DEVICE CHECK. NOTIFIED [facility]/CHARGE AND ASKED HER TO NOTIFY [facility] IF FURTHER DEVICE TESTING NEEDS TO BE DONE FOR HOSPITALIST.
--- NOTE | 2020-07-26 14:19 | NUR ---
CONTACTED BY USAMA ARAIZA RN CARE MNAGEMENT THAT [facility] WILL PAY FOR TRANSPORT FROM HERE TO [facility] BUT THEY WILL NOT PAY FOR HIS TRANSFER TO RETURN TO [place]. SPOKE WITH PATIENT REGARDING TRANSPORT AND PT IN AGREEMENT TO TRANSFER TO [facility].PHONE CALL MADE AND SPOKE TO ANDRE AT [facility] OFFICE REGARDING ASSISTING THIS PATIENT WITH TRANSPORT TO RETURN FROM [facility] TO [place]. PER ANDRE SHE WILL CONTACT HER RIPENING ROOM HAND TO ASSIST WITH TRANSPORT PLANS
--- NOTE | 2020-07-26 17:33 | NUR ---
SUMMARY PT WITH 2 LIQUID DK BURGANDY STOOLS THIS SHIFT. PT ANGRY, CURSING AND ARGUMENTATIVE. DR LEWIS IN ROOM AT THIS TIME PT IS CURRENTLY DECLINING TRANSPORT TO [facility]. SPOKE YO AT [facility] OFFICES WHO TELLS ME THAT ARRANGEMENTS WILL BE MADE THROUGHT THEM TO TRANSFER PT BACK TO [facility] WHEN DISCHARGED FROM [facility] PT REPORTS SOME PAIN TO RIGHT ABD, DENIES NAUSEA, MELBA CLEAR LIQUID DIET
--- NOTE | 2020-07-26 17:44 | NUR ---
SPOKE WITH DR LEWIS WHO TELLS ME PT IS IN AGREEMENT TO TRANSFER TO [facility]
[2020-07-26 18:23] LABS: Hematocrit 20.5 % (37.0-53.0); Hemoglobin 6.9 g/dL (13.5-17.5)
--- NOTE | 2020-07-26 18:49 | NUR ---
PT ANGRY STATES HE IS GOING HOME. DISCUSSED WITH PT THAT PLAN IS TO TRANSFER TO [facility] THIS EVENING.PT IN AGREEMENT AT THIS TIME
--- NOTE | 2020-07-26 20:10 | NUR ---
INFORMED MARCIANO ANTHONY OF PT'S H/H OF 6.9/20.5, WHICH IS A DECLINE FROM THIS MORNING. NOT ACUTE CHANGES IN PATIENT AT THIS TIME; DENIES SOB, IS A/O, W/VSS. PER PROVIDER, NO NEW ORDERS AND PLAN TO REASSESS WITH NEXT H/H. WILL CONTINUE TO MONITOR PT.
[2020-07-27 01:00] LABS: Hematocrit 18.7 % (37.0-53.0); Hemoglobin 6.1 g/dL (13.5-17.5)
[2020-07-27 01:13] LABS: Anion Gap 3 mmol/L (6-16); Blood Urea Nitrogen 29 mg/dL (8-24); Bun/Creatinine Ratio 39.7 (12.0-20.0); CO2, Blood 27 mmol/L (21-32); Calcium, Blood 7.4 mg/dL (8.5-10.1); Chloride, Blood 106 mmol/L (98-108); Creatinine, Blood 0.73 mg/dL (0.60-1.20); Glomerular Filtration Rate >60 (60-); Glucose, Blood 154 mg/dL (70-99); Phosphorus, Blood 2.7 mg/dL (2.5-4.9); Potassium, Blood 3.9 mmol/L (3.5-5.5); Sodium, Blood 136 mmol/L (136-145)
--- NOTE | 2020-07-27 02:29 | NUR ---
H/H NOTIFIED DR. BAER PT'S H/H IS TRENDING DOWN WITH MOST RECENT BEING 6.1/18.7. NEW ORDER FOR 1 UNIT RBC OBTAINED AT THIS TIME. WILL ADMINISTER BLOOD PER ORDER AND CONT TO MONITOR PT.
--- NOTE | 2020-07-27 06:09 | NUR ---
SHIFT SUMMARY PT IS A/O, EASILY CONFUSED AND IMPULSIVE AT TIMES. VSS, SPO2 ABOVE 93% ON RA. HR PACED AT 104 PER TELE. PT AWAKE MOST OF NIGHT. COOPERATIVE WITH CARE, CAN BECOME FRUSTRATED EASILY. MOOD SEEMS TO HAVE IMPROVED T/O SHIFT. H/H DECREASED TO 6.7/22.5; RBC CURRENTLY INFUSING. PT CONTINUES TO APPEAR PALE. KEARNEY TO GRAVITY DRAIN WITH BAG OFF GROUND AND STAT LOCK IN PLACE. NO BM THIS SHIFT. MELBA CL, DENIES N/V. PROTONIX AND CLINIMIX INFUSING PER ORDERS. AWAITING TRANSFER TO [facility] R/T BED AVAILABILITY. PT IS CURRENTLY RESTING IN BED WHILE WATCHING TV. DENIES NEEDS. HAS CALL LIGHT IN REACH AND BED ALARM ON FOR SAFETY. WILL CONT TO MONITOR AND GIVE REPORT TO ONCOMING DAY RN.
--- NOTE | 2020-07-27 12:41 | NUR ---
C/O SOB. RT AND DR LEWIS HERE. CXR DONE. LASIX GIVEN. CONT TO MONITOR
[2020-07-27 12:48] LABS: Hematocrit 19.7 % (37.0-53.0); Hemoglobin 6.4 g/dL (13.5-17.5)
--- NOTE | 2020-07-27 13:07 | NUR ---
97% ON HI FLOW O2, 10 L. RESTING QUIETLY.
--- NOTE | 2020-07-27 13:44 | NUR ---
1st unit PRBC started. Pt given verbal information regarding possible blood reaction. Verbalized understanding. Pt able to be titrated down off of oxygen. biox 91% on RA. Will continue to monitor.
--- NOTE | 2020-07-27 14:05 | NUR ---
vss. sats 95% on 2 L. DENIES SOB. TRANSFUSION CONT @ 175ML/HR PER CN.
--- NOTE | 2020-07-27 15:57 | NUR ---
2ND UNIT RBC'S INFUSING. VSS. BIOX 93% ON 2L. LS CLEAR. CONT TO MONITOR.
--- NOTE | 2020-07-27 17:40 | NUR ---
2ND UNIT RBC'S INFUSED. VSS. 94% ON RA. NO C/O. LE CLEAR T/O.
--- NOTE | 2020-07-27 18:55 | NUR ---
PATIENT TRANSFERRED TO [facility] [place] VIA STRETCHER/AMBULANCE AT THIS TIME (ICU ROOM 3 D.) VSS. BIOX 94% ON RA. REPORT GIVEN TO WILMAR WARNER. PROTONIX GTT AT 10 ML/HR INFUSING. NO C/O AT TIME OF DISCHARGE.
== END 2020-07-27 18:55 | DRG 673 ==
LOC: ER 12:05 → ICUW 12:06 → MEDS 12:06 → ICUW 07-19 13:02 → PCU 07-25 18:11
PROVIDERS: Family Medicine; Hospitalist; Internal Medicine Critical Care Medicine; Nurse Practitioner Acute Care; Physician Assistant; Radiology Diagnostic Radiology; Student in an Organized Health Care Education/Training Program; ADMIT Internal Medicine
PROC: 04L43DZ Occlusion of Splenic Artery with Intraluminal Device, Percutaneous Approach (ICD-10-PCS; 2020-07-19)
PROC: 30233R1 Transfusion of Nonautologous Platelets into Peripheral Vein, Percutaneous Approach (ICD-10-PCS; 2020-07-19)
PROC: 30233N1 Transfusion of Nonautologous Red Blood Cells into Peripheral Vein, Percutaneous Approach (ICD-10-PCS; 2020-07-19)
PROC: 02HV33Z Insertion of Infusion Device into Superior Vena Cava, Percutaneous Approach (ICD-10-PCS; 2020-07-19)
PROC: 3E043XZ Introduction of Vasopressor into Central Vein, Percutaneous Approach (ICD-10-PCS; 2020-07-19)
PROC: B415ZZZ Fluoroscopy of Inferior Mesenteric Artery (ICD-10-PCS; 2020-07-19)
PROC: B41JZZZ Fluoroscopy of Other Lower Arteries (ICD-10-PCS; 2020-07-19)
PROC: B414ZZZ Fluoroscopy of Superior Mesenteric Artery (ICD-10-PCS; 2020-07-19)
PROC: 0DJ08ZZ Inspection of Upper Intestinal Tract, Via Natural or Artificial Opening Endoscopic (ICD-10-PCS; principal; 2020-07-21 18:15)
PROC: 047 Lower Arteries, Dilation (ICD-10-PCS; 2020-07-24)
PROC: 04L23DZ Occlusion of Gastric Artery with Intraluminal Device, Percutaneous Approach (ICD-10-PCS; 2020-07-24)
PROC: B4141ZZ Fluoroscopy of Superior Mesenteric Artery using Low Osmolar Contrast (ICD-10-PCS; 2020-07-24)
DX: T83.598A Infection and inflammatory reaction due to other prosthetic device, implant and graft in urinary system, initial encounter (principal); G93.41 Metabolic encephalopathy; R57.8 Other shock; K26.4 Chronic or unspecified duodenal ulcer with hemorrhage; R65.20 Severe sepsis without septic shock; N39.0 Urinary tract infection, site not specified; E87.1 Hypo-osmolality and hyponatremia; D62 Acute posthemorrhagic anemia; Z51.5 Encounter for palliative care; R33.9 Retention of urine, unspecified; Z79.82 Long term (current) use of aspirin; Z90.79 Acquired absence of other genital organ(s); M17.0 Bilateral primary osteoarthritis of knee; I95.9 Hypotension, unspecified; D69.59 Other secondary thrombocytopenia; E83.42 Hypomagnesemia; E78.5 Hyperlipidemia, unspecified; E11.9 Type 2 diabetes mellitus without complications; Z79.84 Long term (current) use of oral hypoglycemic drugs
CPT/HCPCS: 0241U; 36245; 36246; 36415; 36430; 36569; 37244; 51702; 71045; 74174; 74177; 75726; 75774; 80048; 80053; 81001; 82140; 82330; 82728; 82803; 82947; 83540; 83550; 83605; 83735; 83880; 84100; 84132; 84478; 85014; 85018; 85025; 85049; 85384; 85610; 85730; 86850; 86900; 86901; 86920; 86923; 87040; 87077; 87086; 87186; 93005; 93010; 94760; 96361; 96365; 96367; 96375; 97116; 97162; 99152; 99153; 99285-25; A9270; A9270-GY; C1725; C1751; C1760; C1769; C1887; C1894; C9113; J0171; J0282; J0461; J0610; J0696; J0780; J1170; J1430; J1644; J1650; J1940; J1956; J2185; J2250; J2405; J2550; J2916; J3010; J3475; J3480; J7030; J7040; J7050; J7060; J7120; P9016; P9035; P9059; Q9967

== ENCOUNTER 2021-02-08 11:51 | Day surgery (SDC) | payer MEDICARE, OTHER ==
[~2021-02-08] VITALS: Ht 170.2 cm; Wt 96.5 kg
[~2021-02-08 11:51] MED LIST changes: +FERROUS SULFAT325 M3 PO; +GLUCOPHAGE1000 M3 PO; +Klor-Con 1010 MEQ PO; +RAMI5 PO; +SPIRONOLACTONE25 MG PO; +ZOCOR20 MG PO
== END 2021-02-08 14:04 | disposition home or self-care (01) ==
LOC: ORSCSDS 11:51
PROVIDERS: Student in an Organized Health Care Education/Training Program
PROC: 0DB68ZX Excision of Stomach, Via Natural or Artificial Opening Endoscopic, Diagnostic (ICD-10-PCS; principal; 2021-02-08 13:30)
PROC: 0DB98ZX Excision of Duodenum, Via Natural or Artificial Opening Endoscopic, Diagnostic (ICD-10-PCS; principal; 2021-02-08 13:30)
DX: K26.9 Duodenal ulcer, unspecified as acute or chronic, without hemorrhage or perforation (principal); K29.70 Gastritis, unspecified, without bleeding; E11.9 Type 2 diabetes mellitus without complications; I10 Essential (primary) hypertension; G47.33 Obstructive sleep apnea (adult) (pediatric); E66.9 Obesity, unspecified; Z68.33 Body mass index [BMI] 33.0-33.9, adult; Z79.82 Long term (current) use of aspirin; Z79.84 Long term (current) use of oral hypoglycemic drugs; Z79.899 Other long term (current) drug therapy
CPT/HCPCS: 82947; 88305; 88342; J2704; J7120

== ENCOUNTER 2021-08-30 09:00 | Day surgery (SDC) | payer MEDICARE, OTHER ==
[~2021-08-30] VITALS: Ht 175.3 cm; Wt 98.0 kg
[2021-08-30] MEDS ORDERED: ASPI81CH PO (10:17)
--- NOTE | 2021-08-30 13:55 | NUR ---
PT BACK TO RECOVERY ROOM VIA BED AFTER PROCEDURE. AWAKE AND ALERT, DENIES PAIN OR NEEDS. LEFT CHEST WITH PRESSURE DRESSING IN PLACE.
--- NOTE | 2021-08-30 15:30 | NUR ---
1 GRAM ANCEF IBPV STARTED PER ORDERS PRIOR TO DISCHARGE.
--- NOTE | 2021-08-30 15:55 | NUR ---
IV DC'D, CATH INTACT. PT GIVEN DC INSTRUCTIONS, VERBALIZED UNDERSTANDING. OUT TO CAR VIA WHEELCHAIR, WILL FOLLOW UP DIRECTED. LEFT CHEST SITE C/D/I.
[2021-12-30] MEDS ORDERED: ONDA4ODT MM (03:15)
[2021-12-30] MEDS ORDERED: CEPH500 PO (03:53)
== END 2021-08-30 16:00 | disposition home or self-care (01) ==
LOC: MHTC 09:00 → ECHO 09:00 → MHTC 16:00
DX: T82.190A Other mechanical complication of cardiac electrode, initial encounter (principal); I42.8 Other cardiomyopathies; I10 Essential (primary) hypertension; E78.5 Hyperlipidemia, unspecified; G47.33 Obstructive sleep apnea (adult) (pediatric); I25.10 Atherosclerotic heart disease of native coronary artery without angina pectoris; E11.9 Type 2 diabetes mellitus without complications; G93.40 Encephalopathy, unspecified; D50.0 Iron deficiency anemia secondary to blood loss (chronic); Y71.2 Prosthetic and other implants, materials and accessory cardiovascular devices associated with adverse incidents
CPT/HCPCS: 33249; 33264; 93306; 99152; 99153; C1781; C1882; J0690; J1644; J2250; J3010; J7030; J7040; Q9967

== ENCOUNTER 2021-11-05 22:55 | Emergency (ER) | payer MEDICARE, OTHER ==
[~2021-11-05] VITALS: Ht 157.5 cm; Wt 90.7 kg
[~2021-11-05 22:55] MED LIST changes: +ASPI81CH PO
[2021-11-05 23:58] LABS: BASOPHILS ABSOLUTE AUTO 0.02 K/mm3 (0.00-0.23); BASOPHILS PERCENT AUTO 0 % (0-2); EOSINOPHILS PERCENT AUTO 0 % (0-6); Hematocrit 41.7 % (37.0-53.0); Hemoglobin 14.2 g/dL (13.5-17.5); IMMATURE GRAN ABSOLUTE AUTO 0.17 K/mm3 (0.00-0.10); IMMATURE GRAN PERCENT AUTO 2 % (0-1); LYMPHOCYTES ABSOLUTE AUTO 0.84 K/mm3 (0.84-5.20); LYMPHOCYTES PERCENT AUTO 7 % (21-46); MONOCYTES ABSOLUTE AUTO 0.31 K/mm3 (0.16-1.47); MONOCYTES PERCENT AUTO 3 % (4-13); Mean Corpuscular HGB 32.9 pg (26.0-34.0); Mean Corpuscular HGB Conc 34.1 g/dL (31.5-36.5); Mean Corpuscular Volume 97 fL (80-100); Mean Platelet Volume 9.9 fL (9.1-12.4); NEUTROPHILS ABSOLUTE AUTO 10.09 K/mm3 (1.96-9.15); NEUTROPHILS PERCENT AUTO 88 % (41-73); Platelet Count 358 K/mm3 (150-400); RDW Coefficient Variation 12.7 % (11.7-14.2); RDW Standard Deviation 45.6 fL (35.1-46.3); Red Blood Cell Count 4.31 M/mm3 (4.30-5.90); White Blood Cell Count 11.43 K/mm3 (4.00-11.30)
[2021-11-06 00:17] LABS: Alanine Aminotransfer (ALT/SGP 41 U/L (12-78); Albumin, Blood 3.6 g/dL (3.4-5.0); Albumin/Globulin Ratio 0.8 (0.8-1.8); Alk Phos 81 U/L (50-136); Anion Gap 13 mmol/L (6-16); Aspartate Aminotrans (AST/SGOT 36 U/L (12-37); Bilirubin, Total 0.4 mg/dL (0.1-1.0); Blood Urea Nitrogen 21 mg/dL (8-24); Bun/Creatinine Ratio 24.1 (12.0-20.0); CO2, Blood 26 mmol/L (21-32); Chloride, Blood 89 mmol/L (98-108); Creatinine, Blood 0.87 mg/dL (0.60-1.20); Ethanol (Alcohol), Blood, Med 267 mg/dL; Globulin, Blood 4.3 g/dL (2.2-4.0); Glomerular Filtration Rate >60 (60-); Glucose, Blood 172 mg/dL (70-99); Potassium, Blood 4.7 mmol/L (3.5-5.5); Sodium, Blood 128 mmol/L (136-145); Total Protein, Blood 7.9 g/dL (6.4-8.2)
== END 2021-11-06 11:25 | disposition home or self-care (01) ==
LOC: ER 22:55
PROVIDERS: Emergency Medicine
DX: S01.21XA Laceration without foreign body of nose, initial encounter (principal); F10.129 Alcohol abuse with intoxication, unspecified; Y90.8 Blood alcohol level of 240 mg/100 ml or more; I10 Essential (primary) hypertension; E11.9 Type 2 diabetes mellitus without complications; E78.5 Hyperlipidemia, unspecified; Z88.5 Allergy status to narcotic agent; Z79.82 Long term (current) use of aspirin; Z79.84 Long term (current) use of oral hypoglycemic drugs; Z79.899 Other long term (current) drug therapy; W22.8XXA Striking against or struck by other objects, initial encounter
CPT/HCPCS: 36415; 51798; 70450; 72125; 80053; 85025; G0480; J1630; J2060

== ENCOUNTER 2021-12-06 16:25 | Inpatient (IN) | payer OTHER ==
[~2021-12-06] VITALS: Ht 175.3 cm; Wt 96.3 kg
[2021-12-06] MEDS ORDERED: VITAMIN C125 MG PO (16:53)
[2021-12-06] MEDS ORDERED: NEURONTIN300 MG PO (16:53)
[2021-12-06 17:15] LABS: BASOPHILS ABSOLUTE AUTO 0.02 K/mm3 (0.00-0.23); BASOPHILS PERCENT AUTO 0 % (0-2); EOSINOPHILS ABSOLUTE AUTO 0.04 K/mm3 (0.00-0.68); EOSINOPHILS PERCENT AUTO 0 % (0-6); Hematocrit 28.1 % (37.0-53.0); Hemoglobin 9.2 g/dL (13.5-17.5); IMMATURE GRAN ABSOLUTE AUTO 0.07 K/mm3 (0.00-0.10); IMMATURE GRAN PERCENT AUTO 1 % (0-1); LYMPHOCYTES ABSOLUTE AUTO 1.22 K/mm3 (0.84-5.20); LYMPHOCYTES PERCENT AUTO 12 % (21-46); MONOCYTES ABSOLUTE AUTO 1.28 K/mm3 (0.16-1.47); MONOCYTES PERCENT AUTO 12 % (4-13); Mean Corpuscular HGB 33.2 pg (26.0-34.0); Mean Corpuscular HGB Conc 32.7 g/dL (31.5-36.5); Mean Corpuscular Volume 101 fL (80-100); Mean Platelet Volume 10.7 fL (9.1-12.4); NEUTROPHILS ABSOLUTE AUTO 7.96 K/mm3 (1.96-9.15); NEUTROPHILS PERCENT AUTO 75 % (41-73); Platelet Count 190 K/mm3 (150-400); RDW Coefficient Variation 13.2 % (11.7-14.2); RDW Standard Deviation 49.4 fL (35.1-46.3); Red Blood Cell Count 2.77 M/mm3 (4.30-5.90); White Blood Cell Count 10.59 K/mm3 (4.00-11.30)
[2021-12-06 17:29] LABS: Alanine Aminotransfer (ALT/SGP 15 U/L (12-78); Albumin, Blood 2.6 g/dL (3.4-5.0); Albumin/Globulin Ratio 0.9 (0.8-1.8); Alk Phos 64 U/L (50-136); Anion Gap 8 mmol/L (6-16); Aspartate Aminotrans (AST/SGOT 13 U/L (12-37); Bilirubin, Total 0.4 mg/dL (0.1-1.0); Blood Urea Nitrogen 45 mg/dL (8-24); Bun/Creatinine Ratio 50.1 (12.0-20.0); CO2, Blood 23 mmol/L (21-32); Calcium, Blood 8.8 mg/dL (8.5-10.1); Chloride, Blood 101 mmol/L (98-108); Globulin, Blood 2.9 g/dL (2.2-4.0); Glomerular Filtration Rate >60 (60-); Glucose, Blood 175 mg/dL (70-99); Potassium, Blood 5.3 mmol/L (3.5-5.5); Sodium, Blood 132 mmol/L (136-145); Total Protein, Blood 5.5 g/dL (6.4-8.2)
[2021-12-06 18:57] LABS: International Normalized Ratio 1.07; Prothrombin Time Results 11.2 Sec (9.7-11.5)
[2021-12-06 20:09] LABS: Hematocrit 29.8 % (37.0-53.0); Hemoglobin 9.9 g/dL (13.5-17.5); Mean Corpuscular HGB Conc 33.2 g/dL (31.5-36.5); Mean Corpuscular Volume 99 fL (80-100); Platelet Count 180 K/mm3 (150-400); RDW Coefficient Variation 13.2 % (11.7-14.2); RDW Standard Deviation 47.8 fL (35.1-46.3); White Blood Cell Count 11.08 K/mm3 (4.00-11.30)
[2021-12-06] MEDS ORDERED: TRAM50 PO (21:02)
[2021-12-06] MEDS ORDERED: MASOPHEN325 M3 PO (21:03)
[2021-12-06] MEDS ORDERED: IBUP200 PO (21:04)
[2021-12-06] MEDS ORDERED: IRON18 MG PO (21:05)
--- NOTE | 2021-12-06 21:41 | NUR ---
ASSUMED CARE OF PATIENT AT APPROXIMATELY 2042 FROM ED RN PATRICIA Conteh PATIENT ARRIVED VIA STRETCHER; TRANSFER FROM ED TO PCU STRETCHER VIA SLIDE SHEET AND MAX ASSIST; PATIENT REPORTS HE IS NORMALLY INDEPENDENT AT HOME AND HIS BACK PAIN IS PREVENTING HIM FROM GETTING UP RIGHT NOW. PATIENT ONLY HAS IV MORPHINE ORDERED AND PATIENT REPORTS HE HAD AN ALLERGY TO IT BUT WHEN ASKS WHAT THE ALLERGY WAS HE REPORT "THEY OVERDOSED ME" WITH IS IN THE SERVICE MANY YEARS AGO; THIS RN OFFERED TO CALL THE HOSPITALIST TO GET A DIFFERENT ORDER BUT PATIENT REPORTS ITS NOT AN ALLERGY. PATIENT DENIES NUMBNESS, TINGLING, DIZZINESS, OR NAUSEA. NS AND PROTONIX INFUSING PER ORDER. PACED ON TELE; OXYGEN SATURATION ABOVE 90% ON ROOM AIR. ADMISSION COMPLETE AND CONSENTS SIGNED. BIANCA, PCU GLAZE WIPER PLACED POWERGLIDE TO YE.
--- NOTE | 2021-12-06 22:07 | NUR ---
DR. HAYS BEDSIDE; HE WOULD LIKE CALLED WITH THE 2229 H/H RESULTS AND WILL LIKELY SCOPE TOMORROW AFTERNOON UNLESS HE ACTIVELY STARTS TO BLEED WITH RED STOOL NOT BLACK OR VOMIT IS RED OR MAROON.
--- NOTE | 2021-12-06 22:27 | NUR ---
SMEAR BM WAS BROWN; NO BLOOD NOTED; UP TO BEDSIDE COMMODE AND USED URINAL; HEART RATE UP TO 140'S WHEN UP. PATIENT REPORTS IT WAS BLACK BEFORE HE GOT TO THE HOSPITAL. K-PAD GIVEN FOR BACK PAIN; PATIENT REPORTS HE IS UNSURE IF IV MORPHINE HELPED PAIN.
[2021-12-06 23:45] LABS: Hematocrit 26.2 % (37.0-53.0); Hemoglobin 8.9 g/dL (13.5-17.5); Mean Corpuscular HGB 33.1 pg (26.0-34.0); Mean Corpuscular Volume 97 fL (80-100); Mean Platelet Volume 9.9 fL (9.1-12.4); Platelet Count 176 K/mm3 (150-400); RDW Coefficient Variation 13.2 % (11.7-14.2); RDW Standard Deviation 46.9 fL (35.1-46.3); Red Blood Cell Count 2.69 M/mm3 (4.30-5.90); White Blood Cell Count 9.86 K/mm3 (4.00-11.30)
--- NOTE | 2021-12-06 23:58 | NUR ---
DR. HAYS CALLED WITH H/H RESULTS AND NOTIFIED THAT PATIENT THOUGHT HE NEEDED TO HAVE BM BUT ONLY HAD BROWN SMEAR; NO S/S OF ACTIVE BLEEDING; NO NEW ORDERS.
[2021-12-07 04:05] LABS: Hematocrit 26.3 % (37.0-53.0); Hemoglobin 8.9 g/dL (13.5-17.5); Mean Corpuscular HGB 32.8 pg (26.0-34.0); Mean Corpuscular HGB Conc 33.8 g/dL (31.5-36.5); Mean Corpuscular Volume 97 fL (80-100); Mean Platelet Volume 10.3 fL (9.1-12.4); Platelet Count 190 K/mm3 (150-400); RDW Coefficient Variation 13.4 % (11.7-14.2); RDW Standard Deviation 47.5 fL (35.1-46.3); Red Blood Cell Count 2.71 M/mm3 (4.30-5.90)
[2021-12-07 04:24] LABS: Alanine Aminotransfer (ALT/SGP 16 U/L (12-78); Albumin, Blood 2.9 g/dL (3.4-5.0); Alk Phos 67 U/L (50-136); Anion Gap 6 mmol/L (6-16); Aspartate Aminotrans (AST/SGOT 12 U/L (12-37); Bilirubin, Total 0.4 mg/dL (0.1-1.0); Blood Urea Nitrogen 41 mg/dL (8-24); Bun/Creatinine Ratio 42.4 (12.0-20.0); CO2, Blood 28 mmol/L (21-32); Calcium, Blood 8.3 mg/dL (8.5-10.1); Chloride, Blood 103 mmol/L (98-108); Creatinine, Blood 0.97 mg/dL (0.60-1.20); Glomerular Filtration Rate >60 (60-); Glucose, Blood 121 mg/dL (70-99); Potassium, Blood 4.6 mmol/L (3.5-5.5); Sodium, Blood 137 mmol/L (136-145); Total Protein, Blood 5.9 g/dL (6.4-8.2)
[2021-12-07 06:07] LABS: Influenza A, PCR NEGATIVE (NEGATIVE); Influenza B, PCR NEGATIVE (NEGATIVE); Resp Syncytial Virus, PCR NEGATIVE (NEGATIVE); SARS-Cov-2 (COVID-19) PCR, MMC NEGATIVE (NEGATIVE)
--- NOTE | 2021-12-07 06:14 | NUR ---
PATIENT UP TO BSC MULTIPLE TIMES BUT NO BM; URINATED ON FLOOR A FEW TIMES BECAUSE PATIENT MISSED URINAL; HEART RATE JUMPS UP TO 130-140'S AT TIME. PATIENT SLEPT ABOUT SIX HOURS. COVID TEST FOR EGD DONE. NO OTHER ACUTE CHANGES TO REPORT.
[2021-12-07 08:05] LABS: Hematocrit 24.5 % (37.0-53.0); Hemoglobin 8.2 g/dL (13.5-17.5); Mean Corpuscular HGB 32.8 pg (26.0-34.0); Mean Corpuscular HGB Conc 33.5 g/dL (31.5-36.5); Mean Corpuscular Volume 98 fL (80-100); Mean Platelet Volume 10.6 fL (9.1-12.4); Platelet Count 169 K/mm3 (150-400); RDW Coefficient Variation 13.5 % (11.7-14.2); RDW Standard Deviation 47.9 fL (35.1-46.3); White Blood Cell Count 9.91 K/mm3 (4.00-11.30)
--- NOTE | 2021-12-07 09:35 | NUR ---
AM NOTE: PATIENT ALERT AND ORIENTED X4. PERRLA. DENIES NUMBNESS/TINGLING. ABLE TO STAND WITH STANDBY ASSIT TO BSC. DENIES USING CANE/WALKER AT HOME. ON ROOM AIR, LUNGS SOUNDING CLEAR. SATING MID 90'S. TELE SHOWING HR 100-110'S PACED WITH HR INCREASING TO 130'S WHEN UP MOVING AROUND. DENIES CHEST PAIN/PRESSURE. BP STABLE. DENIES ABDOMINAL PAIN/NAUSEA. UP TO BSC THIS AM, NO BM - SMALL BROWN SMEAR WHEN WIPING. USING URINAL, CLEAR/YELLOW OUTPUT. CALLING FOR ASSISTANCE WITH BSC. DRINKING WATER AND ICE CHIPS TILL 1100. NPO AFTER [address] HAYS. PLAN FOR SCOPE THIS AFTERNOON. DENIES NEEDS AT THIS TIME. BED ALARM ON FOR SAFETY. CALL LIGHT IN REACH. Q6 CBG. NO SIGNS OF ETOH WITHDRAWL AT THIS TIME. WILL CONTINUE TO MONITOR.
--- NOTE | 2021-12-07 14:08 | NUR ---
PATIENT LEFT ROOM AT [address] HAYS.
--- NOTE | 2021-12-07 15:30 | NUR ---
12/07/21 1530 LAMAR BRUSH History, Chart, Medications and Allergies reviewed before start of procedure. 3-LEAD EKG REVIEWED WITH PHYSICIAN PRIOR TO START OF PROCEDURE. O2 VIA POM INTACT THROUGHOUT SEDATION/PROCEDURE. MONITOR INTACT WITH CONTINUOUS PULSE OXIMETRY AND INTERMITTENT BP. GENERAL WITH DR. DOOLEY
--- NOTE | 2021-12-07 17:20 | NUR ---
SHIFT SUMMARY: PATIENT REMAINS ALERT AND ORIENTED. NO CHANGES IN TELE OR RESPIRATORY STATUS. RETURNED FROM SCOPE PROCEDURE. SPOKE WITH DR. HAYS AND PROTONIX DRIP CONTINUES. [facility] SOFT DIET ORDERED. UP TO BEDSIDE COMMODE WITH ONE PERSON ASSIST. SMALL AMOUNTS OF STOOL OUTPUT LIQUID AND BLACK/MAROON. URINE OUTPUT WNL. COMPLAINS OF BACK SORENESS BUT DENIES NEED FOR PAIN MEDS. POST VITALS IN PROGRESS. WILL CONITNUE TO MONITOR AND REPORT OFF TO ONCOMING RN.
--- NOTE | 2021-12-07 19:00 | NUR ---
ASSUMED CARE ASSUMED CARE OF PATIENT. AWAKE AND ALERT. ORIENTED TO SELF, PLACE, EVENTS, AND TO MONTH YEAR, BUT NOT TO DATE/TIME. COOPERATIVE WITH CARE BUT QUICKLY BECOMES IRRITABLE AND AGITATED. IMPULSIVE- BED ALARM ON. VOIDING WITHOUT DIFFICULTY. PT REMAINS NPO. MONITOR SHOWS PACED RHYTHM, RATE 90s-110s. BP STABLE. O2 1L NC. RESPIRATIONS EVEN AND UNLABORED. SATS STABLE. PROTONIX GTT CONTINUES PER ORDER. SEE SHIFT ASSESSMENT FOR FULL ASSESSMENT.
--- NOTE | 2021-12-07 21:17 | NUR ---
CALLED DR. JOYA REGARDING PATIENT'S REPORT OF 10/10 PAIN AFTER GIVEN IV MORPHINE FOR BACK PAIN BY CHILD THERAPIST. ORDERS FOR IV FENTANYL 25-50 MCG Q4 AND DO NOT NEED TO D/C IV MORPHINE.
--- NOTE | 2021-12-07 21:58 | NUR ---
ASSUMED CARE OF PATIENT AT APPROXIMATELY 1905 FROM ZENOBIA Garcia RN PATIENT SBA TO BEDSIDE COMMODE TO URINATE AND HAVE BM; BM MAROON WITH BLOOD CLOTS NOTED; NO CHANGE FROM DAYSHIFT REPORT. PATIENT HAD REPORTED PAIN TO FRUIT CULLER WHILE THIS RN WAS IN ANOTHER ROOM; CHRONIC BACK PAIN; MEDICATED WITH IV MORPHINE; PATIENT REPORTS NO RELIEF; SEE PREVIOUS NOT; PATIENT DENIES NUMBNESS, TINGLING, DIZZINESS, OR NAUSEA. NS AND PROTONIX INFUSING PER ORDER. PACED ON TELE W/ UNDERLYING AFIB; OXYGEN SATURATION ABOVE 90% ON ROOM AIR.
[2021-12-08 04:30] LABS: Hematocrit 20.3 % (37.0-53.0); Hemoglobin 6.9 g/dL (13.5-17.5); Mean Corpuscular HGB 33.5 pg (26.0-34.0); Mean Corpuscular Volume 99 fL (80-100); Mean Platelet Volume 10.6 fL (9.1-12.4); Platelet Count 136 K/mm3 (150-400); RDW Coefficient Variation 13.6 % (11.7-14.2); RDW Standard Deviation 49.1 fL (35.1-46.3); Red Blood Cell Count 2.06 M/mm3 (4.30-5.90); White Blood Cell Count 7.36 K/mm3 (4.00-11.30)
[2021-12-08 04:49] LABS: Alanine Aminotransfer (ALT/SGP 14 U/L (12-78); Albumin, Blood 2.7 g/dL (3.4-5.0); Alk Phos 61 U/L (50-136); Anion Gap 6 mmol/L (6-16); Aspartate Aminotrans (AST/SGOT 12 U/L (12-37); Bilirubin, Total 0.4 mg/dL (0.1-1.0); Blood Urea Nitrogen 20 mg/dL (8-24); CO2, Blood 26 mmol/L (21-32); Calcium, Blood 8.1 mg/dL (8.5-10.1); Chloride, Blood 106 mmol/L (98-108); Creatinine, Blood 0.95 mg/dL (0.60-1.20); Ferritin, Serum 74 ng/mL (26-388); Globulin, Blood 2.8 g/dL (2.2-4.0); Glomerular Filtration Rate >60 (60-); Glucose, Blood 103 mg/dL (70-99); Iron Serum 55 ug/dL (65-175); Percent Saturation 20.1 % (20.0-50.0); Potassium, Blood 3.6 mmol/L (3.5-5.5); Sodium, Blood 138 mmol/L (136-145); Total Iron Binding Capacity 273 ug/dL (250-450); Total Protein, Blood 5.5 g/dL (6.4-8.2)
--- NOTE | 2021-12-08 04:54 | NUR ---
CALLED DR. DIAZ TO REPORT DROP IN PATIENT HEMOGLOBIN FROM 8.2 TO 6.9; PATIENT HAVE MAROON STOOL WITH CLOTS; ORDERS FOR 1 PRBC. CALLED LAB AND ONE PRBC ALREADY ON STANDBY FOR PATIENT.
--- NOTE | 2021-12-08 06:24 | NUR ---
PATIENT HAD SMEAR TO SMALL MAROON BM WITH SOME CLOTS NOTED AND URINE ABOUT EVERY HOUR. SEE PREVIOUS NOTE ABOUT DROP IN HEMOGLOBIN; PATIENT CURRENTLY RECIEIVING ONE PRBC. PATIENT COMPLAINED OF PAIN; REPORTS FENTANYL MORE EFFECTIVE COMPARED TO MORPHINE. PATIENT REPORTS HE HAS NOT SLEPT MUCH TONIGHT DUE TO FREQUENT URINATION AND BM'S.
[2021-12-08 10:43] LABS: Hematocrit 24.3 % (37.0-53.0); Hemoglobin 8.1 g/dL (13.5-17.5)
--- NOTE | 2021-12-08 13:18 | NUR ---
PATIENT ALERT AND ORIENTED X4. FLAT AFFECT. PERRLA. DENIES NUMBNESS/TINGLING. UP TO BSC WITH AVERY ASSIST. ON ROOM AIR SATING MID 90'S. CONTINUOUS PULSE OX ON PATIENT WHEN SLEEPING. HYPOVENTILATION NOTED WITH EPISODES OF PATIENT DROPING TO MID 80'S. ABELARDO SOARES IN, PLACED PATIENT ON 1-2L O2 WHEN SLEEPING. TELE SHOWING PACED RHYTHM WITH PVCS, HR 100-110'S. DENIES CHEST PAIN/PRESSURE. NO SIGNS OF EDEMA. DENIES ABDOMINAL PAIN/NAUSEA. TOLERATING PO DIET. UP TO BSC ABOUT EVERY HOUR TO URINATE. SMALL AMOUNTS OF MAROON/RED COLORED STOOLS WITH SMALL CLOTS. DR. MARTINEZ AWARE. SOME HOME MEDS ORDERED. XRAY OF SPINE DONE THIS AM, PENDING RESULTS. PATIENT COMPLAINS OF BACK PAIN. MEDICATED WITH MORPHINE WITH LITTLE RELIEF. HEATING PAD IN PLACE. ACHS BLOOD SUGARS. ABLE TO TURN SELF IN BED. 1 UNIT OF RBC TRANSFUSED THIS AM. H&H TRENDING UP WITH POST BLOOD TRANSFUSION CHECK. MADE MEDICAL STATUS WITH NO TELE THIS AM. PATIENT UP TO BEDSIDE COMMODE THIS AFTERNOON TRYING TO HAVE BOWEL MOVEMENT. BECAME VERY PALE/DIAPHORETIC. THIS RN NOT IN ROOM AT TIME. REPORTED PATIENT PASSED OUT FOR A FEW SECOND. DENIED CHEST PAIN/PRESSURE. VITALS SIGNS STABLE. ABLE TO TRANSFER BACK TO BED. NO BOWEL MOVEMENT AT THAT TIME. CALL PLACED TO DR. MARTINEZ, PATIENT PLACED BACK ON TELE. NO CHANGES IN TELE FROM WHEN ON MONITOR THIS AM. MONITORING VITALS AND SYMPTOMS MARIALUISA. DR. HAYS IN TO SEE PATIENT. NEW ORDERS TO RECHECK H&H AT 1700 AND CALL WITH RESULTS. WATER ONLY TILL 1500 AND NPO AFTER. WILL CALL DR. HAYS IF PATIENT PASSESS ANY STOOL TO VISUALIZE.
--- NOTE | 2021-12-08 15:26 | NUR ---
NPO AT 1500. VITAL SIGNS REMAINS STABLE. PATIENT SLEEPING ON AND OFF. NO BM SINCE AM. LIDOCAINE PATCH APPLIED TO LOWER BACK. DENIES NEEDS AT THIS TIME. BED ALARM ON FOR SAFETY.
--- NOTE | 2021-12-08 16:09 | NUR ---
PATIENT MEDICAL STATUS WITH TELE. THIS RN NOTIFIED OF AVAILIBLE BED ON SURGICAL FLOOR. CALL PLACED TO DR. MARTINEZ TO CONFIRM STATUS WITH EVENTS THAT OCCURED TODAY. NO CHANGES IN STATUS. PLAN TO TRANSFER PATIENT TO SURGICAL FLOOR.
[2021-12-08 17:26] LABS: Hematocrit 17.9 % (37.0-53.0)
--- NOTE | 2021-12-08 17:39 | NUR ---
HGB RESULTS 6.0, CALL PLACED TO DR. HAYS. ORDERS FOR 2 UNITS PRBC TO BE INFUSED. ONE HOUR POST LAST TRANSFUSION REPEAT H&H AND CALL DR. HAYS WITH RESULTS. KEEP PATIENT NPO. STATUS CHANGE BACK TO PCU. BEDREST AT THIS TIME. VITALS SIGNS STABLE AT THIS TIME. PATIENT OVERALL FEELING WEAK AND "NOT WELL".
--- NOTE | 2021-12-08 18:50 | NUR ---
TRANSFER: UPON STARTING 1ST UNIT OF PRBC PATIENT BP 96/65. AFTER 15 MIN BP 86/59. MODERATE SIZE MAROON BM WITH CLOTS/JELLY LIKE. PATIENT OVERALL FEELING WEAK. CALL PLACED TO DR. HAYS TO UPDATE. REQUEST FOR ICU TRANSFER. CALL PLACED TO DR. MARTINEZ. ORDERS FOR ICU TRANSFER AND 500ML NS BOLUS. BLOOD, PROTONIX AND 500 NS BOLUS INFUSING. TELE CONTINUES TO SHOW PACED AFIB WITH HR 100-110'S. REMAINS ON 1L NASAL CANNULA. COMPLAINS OF BACK PAIN, LIDOCAINE PATCH IN PLACE. BEDREST AT THIS TIME USING BEDPAN. REPORT GIVEN TO RISA. TRANSFERED TO ICU 07 WITH ALL PERSONAL BELONGINGS, CHART, AND MEDICATIONS.
--- NOTE | 2021-12-08 18:54 | NUR ---
PT ARRIVAL.... PT ARRIVED ON THE UNIT VIA GURNEY FROM U. THE PT WAS TRANSFERED FOR AN ACTIVE GI BLEED WITH HYPOTENSION. THE PT ARRIVED WITH 1 UNIT OF PRBCs, A PROTONIX DRIP AND A 500MLS BOLUS OF NS RUNNING. THE PT'S BP UPON ARRIVAL WAS 111/80 WITH A MAP OF 91 HR IS PACED AT 100-120. THE PT IS ON 1 L NC WITH O2 SATS >95% L/S CLEAR T/O DIM IN THE BASES. THE PT IS A&Ox4, PALE AND SLIGHTLY DIAPHORETIC. BT PRESENT AND HYPERACTIVE, ABD IS LARGE SOFT AND TENDER TO PALPATION WHICH IS NEW PER THE PT. THE PT IS C/O OF NAUSEA WHICH WAS MEDICATED PER EMAR BY THIS RN. PER REPORT THE PT HAD A LARGE MAROON BM WITH CLOTS PRIOR TO COMING TO THE UNIT. WILL CONTINUE TO MONITOR UNTIL REPORT IS GIVEN TO ONCOMING RN.
--- NOTE | 2021-12-08 19:00 | NUR ---
ASSUMED CARE ASSUMED CARE OF PATIENT. AWAKE AND ALERT. ORIENTED TO SELF, PLACE, EVENTS, AND TO MONTH YEAR, BUT NOT TO DATE/TIME. COOPERATIVE WITH CARE BUT QUICKLY BECOMES IRRITABLE AND AGITATED. IMPULSIVE- BED ALARM ON. VOIDING WITHOUT DIFFICULTY. PT REMAINS NPO. MONITOR SHOWS PACED RHYTHM, RATE 90s-110s. BP STABLE. O2 1L NC. RESPIRATIONS EVEN AND UNLABORED. SATS STABLE. PROTONIX GTT CONTINUES PER ORDER. PRBCs INFUSING PER ORDER. SEE SHIFT ASSESSMENT FOR FULL ASSESSMENT.
--- NOTE | 2021-12-08 20:54 | NUR ---
12/08/212053 Naheed Beltran/[facility] . SEE PAPER AMESTHESIA RECORD.
--- NOTE | 2021-12-08 21:00 | NUR ---
POWERGLIDE IN L AC RUNNING WELL. PROTONIX HELD FOR PROCEDURE. TO BE RESTARTED BY ICU WHEN CASE COMPLETED.
--- NOTE | 2021-12-08 21:15 | NUR ---
EGD DR. HAYS AND SCOPE CREW IN ROOM FOR EGD. 2ND UNIT PRBC STARTED AT THIS TIME.
[2021-12-08 22:47] LABS: Hematocrit 21.4 % (37.0-53.0); Hemoglobin 7.2 g/dL (13.5-17.5)
--- NOTE | 2021-12-09 00:45 | NUR ---
TRANSFER TO [facility] TRANSFERRED TO [facility] VIA AMBULANCE. POWERGLIDE INTACT TO YE. PROTONIX GTT CONTINUES AT 8MG/HR (10CC/HR). CONDOM CATHETER PLACED RIGHT BEFORE TRANSPORT. VSS. RA SATS STABLE.
[2021-12-30] MEDS ORDERED: ONDA4ODT MM (03:15)
[2021-12-30] MEDS ORDERED: CEPH500 PO (03:53)
== END 2021-12-09 00:48 | disposition short-term general hospital (02) | DRG 377 ==
LOC: ER 16:25 → ICUE 21:00 → PCU 21:00 → ICUE 12-08 18:45
PROVIDERS: Emergency Medicine; Internal Medicine; Internal Medicine Gastroenterology; ADMIT Internal Medicine
PROC: 0DB68ZX Excision of Stomach, Via Natural or Artificial Opening Endoscopic, Diagnostic (ICD-10-PCS; 2021-12-07)
PROC: 30233N1 Transfusion of Nonautologous Red Blood Cells into Peripheral Vein, Percutaneous Approach (ICD-10-PCS; principal; 2021-12-07 14:15)
PROC: 0DJ08ZZ Inspection of Upper Intestinal Tract, Via Natural or Artificial Opening Endoscopic (ICD-10-PCS; 2021-12-08)
DX: K26.4 Chronic or unspecified duodenal ulcer with hemorrhage (principal); R57.8 Other shock; D62 Acute posthemorrhagic anemia; E87.1 Hypo-osmolality and hyponatremia; K25.4 Chronic or unspecified gastric ulcer with hemorrhage; F10.10 Alcohol abuse, uncomplicated; D53.9 Nutritional anemia, unspecified; N35.919 Unspecified urethral stricture, male, unspecified site; E11.9 Type 2 diabetes mellitus without complications; Z20.822 Contact with and (suspected) exposure to COVID-19; I95.9 Hypotension, unspecified; I10 Essential (primary) hypertension; Z66 Do not resuscitate; E78.00 Pure hypercholesterolemia, unspecified; G89.29 Other chronic pain; M17.0 Bilateral primary osteoarthritis of knee; E78.5 Hyperlipidemia, unspecified; Z95.0 Presence of cardiac pacemaker; Z79.82 Long term (current) use of aspirin; Z79.84 Long term (current) use of oral hypoglycemic drugs; Z79.899 Other long term (current) drug therapy; Z98.890 Other specified postprocedural states; Z90.49 Acquired absence of other specified parts of digestive tract
CPT/HCPCS: 0241U; 36430; 72110; 80053; 82728; 82947; 83540; 83550; 85014; 85018; 85025; 85027; 85610; 85730; 86850; 86900; 86901; 86923; 88305; 88342; 93005; 93010; 94760; 94762; 96365; 96366; 99285-25; A9270; C1751; C9113; J0171; J1430; J1815; J2250; J2270; J2370; J2405; J2704; J2916; J3010; J7030; J7040; J7050; J7120; P9016

== ENCOUNTER → 2021-12-29 | Emergency (ER) | payer OTHER ==
[~2021-12-29] VITALS: Ht 167.6 cm; Wt 90.7 kg
[~2021-12-29] MED LIST changes: +CEPH500 PO; +IBUP200 PO; +IRON18 MG PO; +MASOPHEN325 M3 PO; +ONDA4ODT MM; +VITAMIN C125 MG PO
[2021-12-29 22:25] LABS: BASOPHILS ABSOLUTE AUTO 0.02 K/mm3 (0.00-0.23); BASOPHILS PERCENT AUTO 0 % (0-2); EOSINOPHILS PERCENT AUTO 3 % (0-6); Hematocrit 31.9 % (37.0-53.0); Hemoglobin 10.3 g/dL (13.5-17.5); IMMATURE GRAN ABSOLUTE AUTO 0.01 K/mm3 (0.00-0.10); IMMATURE GRAN PERCENT AUTO 0 % (0-1); LYMPHOCYTES ABSOLUTE AUTO 1.08 K/mm3 (0.84-5.20); LYMPHOCYTES PERCENT AUTO 14 % (21-46); MONOCYTES ABSOLUTE AUTO 0.99 K/mm3 (0.16-1.47); MONOCYTES PERCENT AUTO 13 % (4-13); Mean Corpuscular HGB Conc 32.3 g/dL (31.5-36.5); Mean Corpuscular Volume 99 fL (80-100); Mean Platelet Volume 10.7 fL (9.1-12.4); NEUTROPHILS ABSOLUTE AUTO 5.42 K/mm3 (1.96-9.15); NEUTROPHILS PERCENT AUTO 70 % (41-73); Platelet Count 229 K/mm3 (150-400); RDW Standard Deviation 58.5 fL (35.1-46.3); Red Blood Cell Count 3.22 M/mm3 (4.30-5.90); White Blood Cell Count 7.72 K/mm3 (4.00-11.30)
[2021-12-29 22:42] LABS: Alanine Aminotransfer (ALT/SGP 19 U/L (12-78); Albumin, Blood 3.4 g/dL (3.4-5.0); Alk Phos 82 U/L (50-136); Anion Gap 6 mmol/L (6-16); Aspartate Aminotrans (AST/SGOT 24 U/L (12-37); Bilirubin, Total 0.3 mg/dL (0.1-1.0); Blood Urea Nitrogen 14 mg/dL (8-24); CO2, Blood 29 mmol/L (21-32); Calcium, Blood 8.7 mg/dL (8.5-10.1); Chloride, Blood 101 mmol/L (98-108); Creatinine, Blood 0.87 mg/dL (0.60-1.20); Globulin, Blood 3.5 g/dL (2.2-4.0); Glomerular Filtration Rate >60 (60-); Glucose, Blood 150 mg/dL (70-99); Potassium, Blood 4.3 mmol/L (3.5-5.5); Sodium, Blood 136 mmol/L (136-145); Total Protein, Blood 6.9 g/dL (6.4-8.2)
== END ==
LOC: ER 21:55
PROVIDERS: Student in an Organized Health Care Education/Training Program
DX: K65.4 Sclerosing mesenteritis (principal); Z79.899 Other long term (current) drug therapy; Z79.84 Long term (current) use of oral hypoglycemic drugs; Z79.82 Long term (current) use of aspirin; I10 Essential (primary) hypertension; E11.9 Type 2 diabetes mellitus without complications; E78.00 Pure hypercholesterolemia, unspecified
CPT/HCPCS: 74177; 80053; 83690; 84484; 85025; 93005; 93010; A9270; J0780; J2405; J2765; J7030; Q9967

== ENCOUNTER 2022-03-14 23:40 | Emergency (ER) | payer MEDICARE, OTHER ==
[~2022-03-14] VITALS: Ht 177.8 cm; Wt 113.4 kg
== END 2022-03-15 09:10 | disposition home or self-care (01) ==
LOC: ER 23:40
DX: F10.129 Alcohol abuse with intoxication, unspecified (principal); I10 Essential (primary) hypertension; E11.9 Type 2 diabetes mellitus without complications; E78.00 Pure hypercholesterolemia, unspecified; Z95.0 Presence of cardiac pacemaker; Z79.82 Long term (current) use of aspirin; Z79.899 Other long term (current) drug therapy; Z79.84 Long term (current) use of oral hypoglycemic drugs
CPT/HCPCS: 82947; 99284

== ENCOUNTER 2022-09-17 22:58 | Emergency (ER) | payer MEDICARE, OTHER ==
[~2022-09-17] VITALS: Ht 170.2 cm; Wt 92.5 kg
[2022-09-18 05:28] LABS: Source, Urine Clean Catch
[2022-09-18 05:31] LABS: Bilirubin, Urine Neg (Neg); Blood, Urine 3+ (Neg); Glucose Qualitative, Urine Neg (Neg); Ketones, Urine 1+ (Neg); Leukocyte Esterase, Urine 3+ (Neg); Nitrite, Urine Neg (Neg); Protein, Urine 2+ (Neg); Specific Gravity, Urine 1.005 (1.003-1.022); Urobilinogen, Urine NORM (Normal)
[2022-09-18 05:45] LABS: Color, Urine Yellow (P-Yellow)
[2022-09-18 05:46] LABS: Appearance, Urine Cloudy (Clear)
[2022-09-18 05:47] LABS: White Blood Cells, Urine 25-50 /hpf (0-5)
[2022-09-18 05:48] LABS: Bacteria Many /hpf; Squamous Epithelial Cells Rare /hpf (Few)
[2022-09-18 05:52] LABS: BASOPHILS ABSOLUTE AUTO 0.02 K/mm3 (0.00-0.23); BASOPHILS PERCENT AUTO 0 % (0-2); EOSINOPHILS ABSOLUTE AUTO 0.01 K/mm3 (0.00-0.68); EOSINOPHILS PERCENT AUTO 0 % (0-6); Hematocrit 22.4 % (37.0-53.0); Hemoglobin 7.9 g/dL (13.5-17.5); IMMATURE GRAN ABSOLUTE AUTO 0.09 K/mm3 (0.00-0.10); IMMATURE GRAN PERCENT AUTO 1 % (0-1); LYMPHOCYTES ABSOLUTE AUTO 1.04 K/mm3 (0.84-5.20); LYMPHOCYTES PERCENT AUTO 8 % (21-46); MONOCYTES ABSOLUTE AUTO 1.11 K/mm3 (0.16-1.47); MONOCYTES PERCENT AUTO 8 % (4-13); Mean Corpuscular HGB 34.6 pg (26.0-34.0); Mean Corpuscular HGB Conc 35.3 g/dL (31.5-36.5); Mean Corpuscular Volume 98 fL (80-100); Mean Platelet Volume 10.3 fL (9.1-12.4); NEUTROPHILS PERCENT AUTO 83 % (41-73); Platelet Count 202 K/mm3 (150-400); RDW Coefficient Variation 13.7 % (11.7-14.2); RDW Standard Deviation 47.7 fL (35.1-46.3); Red Blood Cell Count 2.28 M/mm3 (4.30-5.90); White Blood Cell Count 13.67 K/mm3 (4.00-11.30)
[2022-09-18 06:11] LABS: Albumin, Blood 2.9 g/dL (3.4-5.0); Albumin/Globulin Ratio 0.7 (0.8-1.8); Bilirubin, Total 0.4 mg/dL (0.1-1.0); Bun/Creatinine Ratio 39.5 (12.0-20.0); Calcium, Blood 8.7 mg/dL (8.5-10.1); Creatinine, Blood 0.96 mg/dL (0.60-1.20); Globulin, Blood 3.9 g/dL (2.2-4.0); Potassium, Blood 3.7 mmol/L (3.5-5.5); Total Protein, Blood 6.8 g/dL (6.4-8.2)
[2022-09-18] MEDS ORDERED: OXAYDO5 M1 PO (07:28)
[2022-09-18] MEDS ORDERED: AMOCLA875 PO (07:28)
== END 2022-09-18 07:52 | disposition home or self-care (01) ==
LOC: ER 22:58
PROVIDERS: Student in an Organized Health Care Education/Training Program
DX: N39.0 Urinary tract infection, site not specified (principal); M54.50 Low back pain, unspecified; D64.9 Anemia, unspecified; I10 Essential (primary) hypertension; E11.9 Type 2 diabetes mellitus without complications; Z95.0 Presence of cardiac pacemaker; Z79.899 Other long term (current) drug therapy; Z79.84 Long term (current) use of oral hypoglycemic drugs; Z79.82 Long term (current) use of aspirin
CPT/HCPCS: 36415; 74177; 80053; 81001; 83605; 83690; 85025; 93005; 93010; A9270; J0290; J1885; J3010; Q9967

== ENCOUNTER 2022-10-18 15:07 | Inpatient (IN) | payer OTHER, MEDICARE ==
[~2022-10-18] VITALS: Ht 170.2 cm; Wt 85.0 kg
[~2022-10-18 15:07] MED LIST changes: +AMOCLA875 PO; +OXAYDO5 M1 PO
[2022-10-18 15:44] LABS: BASOPHILS ABSOLUTE AUTO 0.01 K/mm3 (0.00-0.23); BASOPHILS PERCENT AUTO 0 % (0-2); EOSINOPHILS PERCENT AUTO 0 % (0-6); Hematocrit 28.9 % (37.0-53.0); Hemoglobin 9.3 g/dL (13.5-17.5); IMMATURE GRAN ABSOLUTE AUTO 0.08 K/mm3 (0.00-0.10); IMMATURE GRAN PERCENT AUTO 1 % (0-1); LYMPHOCYTES ABSOLUTE AUTO 0.39 K/mm3 (0.84-5.20); LYMPHOCYTES PERCENT AUTO 3 % (21-46); MONOCYTES ABSOLUTE AUTO 0.77 K/mm3 (0.16-1.47); MONOCYTES PERCENT AUTO 5 % (4-13); Mean Corpuscular HGB 32.7 pg (26.0-34.0); Mean Corpuscular HGB Conc 32.2 g/dL (31.5-36.5); Mean Corpuscular Volume 102 fL (80-100); Mean Platelet Volume 9.8 fL (9.1-12.4); NEUTROPHILS ABSOLUTE AUTO 12.88 K/mm3 (1.96-9.15); NEUTROPHILS PERCENT AUTO 91 % (41-73); Platelet Count 523 K/mm3 (150-400); RDW Coefficient Variation 14.6 % (11.7-14.2); RDW Standard Deviation 54.6 fL (35.1-46.3); Red Blood Cell Count 2.84 M/mm3 (4.30-5.90); White Blood Cell Count 14.13 K/mm3 (4.00-11.30)
[2022-10-18 16:08] LABS: Magnesium, Blood 2.5 mg/dL (1.6-2.4)
[2022-10-18 16:12] LABS: Alanine Aminotransfer (ALT/SGP 16 U/L (12-78); Albumin, Blood 2.6 g/dL (3.4-5.0); Albumin/Globulin Ratio 0.7 (0.8-1.8); Alk Phos 95 U/L (50-136); Anion Gap 6 mmol/L (6-16); Aspartate Aminotrans (AST/SGOT 15 U/L (12-37); Bilirubin, Total 0.9 mg/dL (0.1-1.0); Blood Urea Nitrogen 27 mg/dL (8-24); Bun/Creatinine Ratio 24.8 (12.0-20.0); CO2, Blood 24 mmol/L (21-32); Calcium, Blood 8.8 mg/dL (8.5-10.1); Chloride, Blood 104 mmol/L (98-108); Creatinine, Blood 1.09 mg/dL (0.60-1.20); Ethanol (Alcohol), Blood, Med <3 mg/dL; Globulin, Blood 3.9 g/dL (2.2-4.0); Glomerular Filtration Rate 69 (60-); Glucose, Blood 191 mg/dL (70-99); Potassium, Blood 4.7 mmol/L (3.5-5.5); Sodium, Blood 134 mmol/L (136-145); Total Protein, Blood 6.5 g/dL (6.4-8.2)
[2022-10-18 18:21] LABS: Source, Urine Clean Catch
[2022-10-18 18:25] LABS: Appearance, Urine Hazy (Clear); Bilirubin, Urine Neg (Neg); Blood, Urine 4+ (Neg); Color, Urine Yellow (P-Yellow); Glucose Qualitative, Urine 2+ (Neg); Ketones, Urine Neg (Neg); Leukocyte Esterase, Urine 1+ (Neg); Nitrite, Urine Neg (Neg); Protein, Urine 2+ (Neg); Specific Gravity, Urine 1.015 (1.003-1.022); Urobilinogen, Urine NORM (Normal)
[2022-10-18 18:40] LABS: Bacteria Few /hpf; Hyaline Casts 0-2 /lpf (0-2); Squamous Epithelial Cells Rare /hpf (Few); White Blood Cells, Urine 25-50 /hpf (0-5)
--- NOTE | 2022-10-18 22:50 | NUR ---
PATIENT IS A NEW ADMIT FROM THE ED. ONE ASSIST TRANSFER FROM [facility] TO BED. LR FINISHED INFUSING FROM ED. ALERT AND ORIENTED. VA PATIENT. DENIES CHEST PAIN, SOB, AND N/V. REPORTED BACK PAIN AND FROM [facility]. PATIENT ORIENTED TO ROOM AND CALL LIGHT SYSTEM. READING A BOOK AFTER ASSESSMENT COMPLETE. WCTM.
--- NOTE | 2022-10-19 03:19 | NUR ---
HOSPITALIST DR PIRES CHANGED SCHEDULE OXYCODONE Q6 5-10 MG TO PRN. ALSO ADDED FERROUS SULFATE 325 MG DAILY PER PHARMACIST TO SUBSTITUTE HOME DOSE.
--- NOTE | 2022-10-19 04:25 | NUR ---
SHIFT SUMMARY PATIENT HAD NO ACUTE CHANGES. AXOX 4 AND ONE ASSIST TO BSC. ON ROOM AIR. REPORTS HE IS A VA PATIENT. DENIES CHEST PAIN, SOB, AND N/V. REPORTED BACK PAIN X TWO AND OXYCODONE 10 MG GIVEN AND ULTRAM 50 MG PER EMAR. VSS/AFEBRILE. REPORTS SELF CATHS AT HOME AT TIMES. PIV REMAINS INTACT. CALL LIGHT IN REACH. BED IN LOWEST POSITION. WILL CONTINUE TO MONITOR UNTIL DAY SHIFT NURSE ASSUMES CARE.
[2022-10-19 05:14] LABS: BASOPHILS ABSOLUTE AUTO 0.02 K/mm3 (0.00-0.23); BASOPHILS PERCENT AUTO 0 % (0-2); EOSINOPHILS ABSOLUTE AUTO 0.02 K/mm3 (0.00-0.68); EOSINOPHILS PERCENT AUTO 0 % (0-6); Hemoglobin 8.3 g/dL (13.5-17.5); IMMATURE GRAN PERCENT AUTO 1 % (0-1); LYMPHOCYTES ABSOLUTE AUTO 0.94 K/mm3 (0.84-5.20); LYMPHOCYTES PERCENT AUTO 6 % (21-46); MONOCYTES PERCENT AUTO 9 % (4-13); Mean Corpuscular HGB 32.2 pg (26.0-34.0); Mean Corpuscular HGB Conc 31.9 g/dL (31.5-36.5); Mean Corpuscular Volume 101 fL (80-100); NEUTROPHILS ABSOLUTE AUTO 12.23 K/mm3 (1.96-9.15); NEUTROPHILS PERCENT AUTO 84 % (41-73); Platelet Count 454 K/mm3 (150-400); RDW Coefficient Variation 14.6 % (11.7-14.2); Red Blood Cell Count 2.58 M/mm3 (4.30-5.90); White Blood Cell Count 14.61 K/mm3 (4.00-11.30)
[2022-10-19 06:02] LABS: Albumin, Blood 2.4 g/dL (3.4-5.0); Albumin/Globulin Ratio 0.7 (0.8-1.8); Bilirubin, Total 0.3 mg/dL (0.1-1.0); Bun/Creatinine Ratio 28.1 (12.0-20.0); Calcium, Blood 8.4 mg/dL (8.5-10.1); Creatinine, Blood 0.96 mg/dL (0.60-1.20); Globulin, Blood 3.6 g/dL (2.2-4.0); Magnesium, Blood 2.2 mg/dL (1.6-2.4); Potassium, Blood 4.1 mmol/L (3.5-5.5)
--- NOTE | 2022-10-19 17:15 | NUR ---
DAYSHIFT SUMMARY Patient doing well, no acute changes to patient status. Blood pressures stable. IV Rocephin administred. Plan is to continue antibiotic therapy, awaiting urine cultures. Vitals stable, afebrile. Patient denies dysuria, pt did not need to self cath this shift. Will continue plan of care.
--- NOTE | 2022-10-19 22:18 | NUR ---
HOSPITALIST RAMEZ TARIQ ORDERED IV FENTANYL 50 MCG FOR BREAKTHROUGH PAIN X ONE.
--- NOTE | 2022-10-20 04:23 | NUR ---
SHIFT SUMMARY PATIENT HAD NO ACUTE CHANGES. AXOX 4 AND INDEPENDENT TO BR. USES URINAL AT BEDSIDE. REPORTED BREAKTHROUGH BACK PAIN X ONE AND IV FENTANYL 50 MCG GIVEN X ONE ORDERED BY HOSPITALIST RAMEZ TARIQ. OXYCODONE GIVEN FOR BACK PAIN MANAGEMENT. PATIENT ABLE TO SLEEP WHEN PAIN MANAGED. DENIES CHEST PAIN, SOB, AND N/V. VSS/AFEBRILE. NOTED HAND TREMORS. COOPERATIVE WITH CARE. CALL LIGHT IN REACH. BED IN LOWEST POSITION. WILL CONTINUE TO MONITOR UNTIL DAY SHIFT NURSE ASSUMES CARE.
--- NOTE | 2022-10-20 15:36 | NUR ---
SHIFT SUMMARY PT RESTING QUIETLY AT START OF SHIFT. UP INDEPENDENTLY WHEN AWAKE. UP TO BTHRM VOIDING W/O DIFFICULTY TO PRESENT. IV ABX GIVEN PER EMAR FOR UTI. MEDICATED FOR C/O BACK PAIN D/T DEGENERATIVE DISC DISEASE. TREMORS NOTED TO BUE'S WHEN IN USE. REFUSED INSULIN AT LUNCH. REPORTED THAT HE TAKES METFORMIN ONCE A DAY IS ALL HE NEEDS. PT REPORTED SM BM'S, BUT ALSO REPORTED CONSTIPATION. BOWEL CARE ORDERED AND GIVEN PER EMAR. PT INFORMED OF HS DOSES WELL. PLEASANT AND CO-OP WITH CARE. DENIED FURTHER NEEDS AT THIS TIME. CALL LT IN REACH.
--- NOTE | 2022-10-21 04:35 | NUR ---
SHIFT SUMMARY PATIENT HAD NO ACUTE CHANGES. AXOX 4 AND INDEPENDENT IN ROOM. REPORTED BACK PAIN X TWO AND OXYCODONE GIVEN PER EMAR. PIV REMAINS INTACT. DENIES CHEST PAIN, SOB, AND N/V. TREMORS BUE NOTED WHEN TAKING PO MEDICATION. SLEPT ON/OFF WHEN PAIN IS MANAGED. COOPERATIVE WITH CARE. CALL LIGHT IN REACH. BED IN LOWEST POSITION. WILL CONTINUE TO MONITOR UNTIL DAY SHIFT NURSE ASSUMES CARE.
[2022-10-21 04:41] LABS: BASOPHILS ABSOLUTE AUTO 0.02 K/mm3 (0.00-0.23); BASOPHILS PERCENT AUTO 0 % (0-2); EOSINOPHILS ABSOLUTE AUTO 0.19 K/mm3 (0.00-0.68); EOSINOPHILS PERCENT AUTO 2 % (0-6); Hematocrit 23.7 % (37.0-53.0); Hemoglobin 7.7 g/dL (13.5-17.5); IMMATURE GRAN ABSOLUTE AUTO 0.08 K/mm3 (0.00-0.10); IMMATURE GRAN PERCENT AUTO 1 % (0-1); LYMPHOCYTES PERCENT AUTO 8 % (21-46); MONOCYTES ABSOLUTE AUTO 1.13 K/mm3 (0.16-1.47); MONOCYTES PERCENT AUTO 11 % (4-13); Mean Corpuscular HGB 32.6 pg (26.0-34.0); Mean Corpuscular HGB Conc 32.5 g/dL (31.5-36.5); Mean Corpuscular Volume 100 fL (80-100); NEUTROPHILS ABSOLUTE AUTO 7.75 K/mm3 (1.96-9.15); NEUTROPHILS PERCENT AUTO 78 % (41-73); RDW Coefficient Variation 14.5 % (11.7-14.2); RDW Standard Deviation 53.1 fL (35.1-46.3); Red Blood Cell Count 2.36 M/mm3 (4.30-5.90); White Blood Cell Count 9.97 K/mm3 (4.00-11.30)
[2022-10-21 04:46] LABS: Mean Platelet Volume 10.3 fL (9.1-12.4); Platelet Count 410 K/mm3 (150-400)
[2022-10-21 04:47] LABS: Calcium, Blood 8.8 mg/dL (8.5-10.1); Creatinine, Blood 0.77 mg/dL (0.60-1.20)
[2022-10-21] MEDS ORDERED: LEVFLO500 PO (11:07)
[2022-10-21] MEDS ORDERED: VISBIOME 112.51 EACH PO (11:08)
[2022-10-21] MEDS ORDERED: SENN187 PO (11:08)
--- NOTE | 2022-10-21 15:53 | NUR ---
PT DISCHARGED AT 1325 WITH ALL PAPERWORK REVIEWED AND EDUCATIONAL MATERIAL SENT WITH PT. NO DISTRESS NOTED AND INDEPENDENT IN ROOM. PT ESCORTED OUT VIA WHEELCHAIR BY AID.
== END 2022-10-21 13:28 | disposition home or self-care (01) | DRG 698 ==
LOC: ER 15:07 → MEDS 15:08
PROVIDERS: Internal Medicine; Student in an Organized Health Care Education/Training Program; ADMIT Student in an Organized Health Care Education/Training Program
DX: T83.518A Infection and inflammatory reaction due to other urinary catheter, initial encounter (principal); A40.8 Other streptococcal sepsis; R65.20 Severe sepsis without septic shock; E87.1 Hypo-osmolality and hyponatremia; N39.0 Urinary tract infection, site not specified; Z16.29 Resistance to other single specified antibiotic; D63.8 Anemia in other chronic diseases classified elsewhere; Z66 Do not resuscitate; M54.9 Dorsalgia, unspecified; G89.29 Other chronic pain; E11.9 Type 2 diabetes mellitus without complications; M51.36 Other intervertebral disc degeneration, lumbar region; I10 Essential (primary) hypertension; E78.00 Pure hypercholesterolemia, unspecified; M17.0 Bilateral primary osteoarthritis of knee; Z96.653 Presence of artificial knee joint, bilateral; B96.89 Other specified bacterial agents as the cause of diseases classified elsewhere; Z95.0 Presence of cardiac pacemaker; Z86.79 Personal history of other diseases of the circulatory system; Z79.899 Other long term (current) drug therapy; Z79.84 Long term (current) use of oral hypoglycemic drugs; Z79.891 Long term (current) use of opiate analgesic; Z79.2 Long term (current) use of antibiotics; Z79.82 Long term (current) use of aspirin; Z98.890 Other specified postprocedural states; Z90.49 Acquired absence of other specified parts of digestive tract
CPT/HCPCS: 36415; 71045; 80048; 80053; 81001; 82947; 83036; 83605; 83735; 84484; 85025; 87077; 87086; 87186; 93005; 93010; 96361-59; 96372; 96374-59; 96376; 99285-25; A9270; G0378; G0480; J0696; J1650; J1815; J3010; J7120; P9612

== ENCOUNTER 2022-10-26 11:31 | Inpatient (IN) | payer OTHER, MEDICARE ==
[~2022-10-26] VITALS: Ht 170.2 cm; Wt 88.6 kg
[~2022-10-26 11:31] MED LIST changes: +FEROSUL325 M1 PO; -IRON18 MG PO; +LEVFLO500 PO; +SENN187 PO; +VISBIOME 112.51 EACH PO
[2022-10-26 12:19] LABS: BASOPHILS ABSOLUTE AUTO 0.03 K/mm3 (0.00-0.23); BASOPHILS PERCENT AUTO 0 % (0-2); EOSINOPHILS ABSOLUTE AUTO 0.01 K/mm3 (0.00-0.68); EOSINOPHILS PERCENT AUTO 0 % (0-6); Hematocrit 25.6 % (37.0-53.0); Hemoglobin 8.4 g/dL (13.5-17.5); IMMATURE GRAN ABSOLUTE AUTO 0.15 K/mm3 (0.00-0.10); IMMATURE GRAN PERCENT AUTO 1 % (0-1); LYMPHOCYTES ABSOLUTE AUTO 0.42 K/mm3 (0.84-5.20); LYMPHOCYTES PERCENT AUTO 2 % (21-46); MONOCYTES ABSOLUTE AUTO 1.02 K/mm3 (0.16-1.47); MONOCYTES PERCENT AUTO 4 % (4-13); Mean Corpuscular HGB 31.9 pg (26.0-34.0); Mean Corpuscular HGB Conc 32.8 g/dL (31.5-36.5); Mean Corpuscular Volume 97 fL (80-100); Mean Platelet Volume 9.8 fL (9.1-12.4); NEUTROPHILS ABSOLUTE AUTO 22.28 K/mm3 (1.96-9.15); NEUTROPHILS PERCENT AUTO 93 % (41-73); Platelet Count 648 K/mm3 (150-400); RDW Coefficient Variation 14.9 % (11.7-14.2); RDW Standard Deviation 52.5 fL (35.1-46.3); Red Blood Cell Count 2.63 M/mm3 (4.30-5.90); White Blood Cell Count 23.91 K/mm3 (4.00-11.30)
[2022-10-26] MEDS ORDERED: KLOR-CON 1010 ME9 PO (12:26)
[2022-10-26] MEDS ORDERED: TAMSULOSIN HCL0.4 M1 PO (12:27)
[2022-10-26 12:41] LABS: Albumin, Blood 3.1 g/dL (3.4-5.0); Albumin/Globulin Ratio 0.7 (0.8-1.8); Bilirubin, Total 1.7 mg/dL (0.1-1.0); Calcium, Blood 9.4 mg/dL (8.5-10.1); Creatinine, Blood 0.91 mg/dL (0.60-1.20); Globulin, Blood 4.4 g/dL (2.2-4.0); Total Protein, Blood 7.5 g/dL (6.4-8.2)
[2022-10-26 17:38] LABS: PCO2 Arterial 52.4 mmHg (35-45); PO2 Arterial 167 mmHg (80-100); pH Blood Arterial 7.31 (7.35-7.45)
--- NOTE | 2022-10-26 19:15 | NUR ---
ASSUMPTION OF CARE Assumed care of patient @ 1915 after recovering from OR for about an hour in ICU. Patient is drowsy, alert to self and time, but disoriented to place and situation. Denies pain at this time. Monitor showing V-paced beats, HR 110s. Normotensive. Art line very positional. Afebrile. On 5l nc. With encouragement, patient has a very weak, nonproductive cough. ISABELLA dressing to mid-abdomen, CDI. ANGELA drain to right abdomen, draining moderate amount of viscous, bilious green/brown fluid. Dill catheter draining appropriately, with tea colored output. Will continue to monitor.
--- NOTE | 2022-10-26 19:24 | NUR ---
RECEIVED PT FROM OR S/P EXP LAP @ 1815. PT SOMULENT AND NOT ABLE TO FOLLOW COMMANDS AT THIS TIME. MIDLINE ISABELLA DRESSING C/D/I. RIGHT QUADRANT WITH ANGELA DRAIN TO BULB SUCTION-60 CC DARK, BROWN/SANGINOUS DRAINAGE. NGT TO LEFT NARE-PLACED TO LIS. ECG SHOWS ST WITH RATE 100'S. PT HAS HX OF PPM AND CARDIOMYOPATHY. LEFT RADIAL A-LINE ZEROED AND BP INITIALLY COORELATING WITH NIBP. HOWEVER, THE LEFT RADIAL A-LINE IS NOTE SUTURED IN AND IT IS VERY POSITIONAL. VERBAL ORDER GIVEN FROM DR. KESSLER TO DC A-LINE IF NO LONGER FUNCTIONAL OR NO LONGER NEEDED. SBP 130'S. NO NOTED EDEMA. DP/PT PULSES FAINT. LUNGS COARSE THROUGH OUT UPPER LOBES AND DIMINISHED IN THE BASES. SATS>90% ON 10 LITERS NRB INITIALLY, AND THEN TRANSITIONED TO 6 LITERS NASAL CANULA. WEAK COUGH EFFORT PT IS STILL QUITE DROWSY. PT ABDOMEN IS MODERATELY DISTENDED. BT'S ABSENT. # [address]-PLACED IN OR. PT HAS HX OF TURP AND URINARY STRICTURE. PT HAS BEEN SELF CATHING HIMSELF FOR 10 YEARS AND HAD A RECENT ADMIT FOR UROSEPSIS. KEARNEY DRAINING ADEQUATE AMOUNT OF DARK, YELLOW URINE-U/A NEEDS TO BE SENT. SKIN IS PALE, W/D. NO NOTED BREAKDOWN. CBG 171 ON ARRIVAL TO ICU. IVF CHANGED TO NS @ 150 CC/HR PER DR. MALDONADO ORDERS.
[2022-10-26 19:58] LABS: Source, Urine Foley catheter
[2022-10-26 20:04] LABS: Appearance, Urine Hazy (Clear); Bilirubin, Urine Neg (Neg); Blood, Urine 5+ (Neg); Color, Urine Yellow (P-Yellow); Glucose Qualitative, Urine 3+ (Neg); Ketones, Urine Neg (Neg); Leukocyte Esterase, Urine Neg (Neg); Nitrite, Urine Neg (Neg); Protein, Urine 2+ (Neg); Urobilinogen, Urine NORM (Normal)
[2022-10-26 20:14] LABS: Bacteria Few /hpf; Red Blood Cells, Urine 50-100 /hpf (0-2); Squamous Epithelial Cells Not Seen /hpf (Few)
[2022-10-27 04:19] LABS: Hematocrit 19.5 % (37.0-53.0); Hemoglobin 6.3 g/dL (13.5-17.5); Mean Corpuscular HGB 32.3 pg (26.0-34.0); Mean Corpuscular HGB Conc 32.3 g/dL (31.5-36.5); Mean Corpuscular Volume 100 fL (80-100); Mean Platelet Volume 9.7 fL (9.1-12.4); Platelet Count 477 K/mm3 (150-400); RDW Coefficient Variation 15.6 % (11.7-14.2); RDW Standard Deviation 55.2 fL (35.1-46.3); Red Blood Cell Count 1.95 M/mm3 (4.30-5.90); White Blood Cell Count 17.45 K/mm3 (4.00-11.30)
[2022-10-27 04:44] LABS: Albumin, Blood 2.1 g/dL (3.4-5.0); Albumin/Globulin Ratio 0.6 (0.8-1.8); Bun/Creatinine Ratio 39.3 (12.0-20.0); Calcium, Blood 7.7 mg/dL (8.5-10.1); Creatinine, Blood 1.07 mg/dL (0.60-1.20); Globulin, Blood 3.4 g/dL (2.2-4.0); Potassium, Blood 4.9 mmol/L (3.5-5.5); Total Protein, Blood 5.5 g/dL (6.4-8.2)
--- NOTE | 2022-10-27 06:35 | NUR ---
SHIFT SUMMARY OVERNIGHT, PATIENT SLOWLY WAKING FROM ANESTHESIA. ALERT TO SELF AND TIME, BUT FREQUENTLY FORGETS THAT HE IS AT THE HOSPITAL AND THAT HE UNDERWENT SURGERY. PATIENTLY IRRITABLE BECAUSE HE CANNOT HAVE FOOD AT THIS TIME AND IS HAVING DIFFICULTY UNDERSTANDING WHY. MONITOR SHOWING A SENSED V PACED RHYTHM; HR IMPROVING FROM 110S AT BEGINNING OF SHIFT TO 80-90S THIS MORNING. SBP 100-120S. AFEBRILE. EKG OBTAINED OVERNIGHT D/T MONITOR ALARM OF POSSIBLE ST ELEVATION. PATIENT NOT COMPLAINING OF ANY CHEST PAIN. INTERPRETATION OF ECG IDENTICAL TO PREVIOUS EKG IN ED; NO MARKED ELEVATION NOTED. DR GRIMM AWARE. OXYGEN TITRATED DOWN FROM 5 TO 2L NC. WEAK, NON-PRODUCTIVE, OCCASIONAL COUGH. PATIENT NEEDS DIRECTION TO COUGH/DEEP BREATHE. NGT TO LIWS, MINIMAL OUTPUT. ANGELA DRAIN TO RIGHT ABDOMEN WITH 380CC OF VISCOUS, BILIOUS OUTPUT. MODERATE AMOUNT OF DRAINAGE AROUND DRAIN SITE, AND DRESSING CHANGED X2. ISABELLA DRESSING TO MIDLINE ABDOMEN, C/D/I. ABDOMEN TENDER, PAINFUL. MORPHINE INEFFECTIVE FOR PAIN CONTROL OVERNIGHT; 1MG DILAUDID ADMINISTERED WITH RELIEF OF SYMPTOMS. KEARNEY CATHETER IN PLACE, DRAINING TEA COLORED URINE; 1100CC OUT. ON AM LABS, HEMOGLOBIN DROPPED TO 6.3; DR JOYA NOTIFIED. ORDERS TO TRANSFUSE 1 UNIT PRBC, AWAITING FROM BLOOD BANK CURRENTLY. NO FURTHER CONCERNS.
--- NOTE | 2022-10-27 08:00 | NUR ---
PT SLEEPS WHEN NOT DISTURBED. PT AWAKENS TO VOICE-ORIENTED TO SELF AND SURROUNDINGS/FOLLOWS COMMANDS AT TIMES. PT JOSEPH, BUT GENERALLY WEAK. PT CURSING AT STAFF WITH AM CARE, ORAL CARE, AND CATH CARE. ECG SHOWS ATRIAL SENSING AND VENTRICULAR PACING WITH RATE 90'S. SBP TRENDING 110-120'S. 1 UNIT PRBC'S TRANSFUSING. NO NOTED EDEMA. LUNGS DIMINISHED IN THE BASES R>L. SATS>90% ON 2 LITERS NASAL CANULA. OCCASIONAL MOIST, NONPRODUCTIVE COUGH. PT NPO. NGT TO LEFT NARES WITH SCANT AMOUNT OF BROWN, LIQUID DRAINAGE TO LIS. ISABELLA DRESSING TO MIDLINE C/D/I. ANGELA TO RIGHT QUADRANT WITH OOZING OF BILIOUS FLUID AROUND INSERTION SITE. DRAIN SPONGE DRESSING CHANGED AND ANGELA EMPTIED FOR 35 CC OF BILIOUS LIQUID. PT HAS A FEW, HYPOACTIVE BT'S. ABDOMEN IS DISTENDED, FIRM, AND TENDER TO PALPATION. SKIN IS PALE, WARM, AND INTACT. DR. HAHN IN TO SEE PT-FULL UPDATE GIVEN. PT NOW PCU STATUS.
--- NOTE | 2022-10-27 09:00 | NUR ---
PT NOTED TO HAVE RUN OF VTACH, WITH OVERRIDE PACING CONVERTED TO ST WITH RATE 130'S. DR. HAHN MADE AWARE. MG+ ADDED ON TO THIS AM LABS. AWARE THAT PT TAKES 12.5 OF COREG DAILY AND THAT PT HAS NOT HAD THIS MED FOR AT LEAST A COUPLE OF DAYS.
--- NOTE | 2022-10-27 10:00 | NUR ---
HR CONTINUES IN THE 130-140'S. PT GRIMACING-MED WITH DILAUDID [address] HAHN UPDATED. REVIEWED MG+ RESULTS WITH DR. HAHN AND CURRENT VS. 12 LEAD ECG DONE. AMIODARONE 150 MG BOLUS FOLLOWED BY DRIP TO BE INITIATED.
--- NOTE | 2022-10-27 10:43 | NUR ---
AMIODARONE BOLUS COMPLETE AND AMIODARONE DRIP INFUSING @ 1 MG/MIN. HR 100'S. SBP 100-110'S.
--- NOTE | 2022-10-27 12:00 | NUR ---
PT RESTING QUIETLY WHEN NOT DISTURBED. PT APPEARS IRRITABLE. PT CRIES OUT AND CURSES WITH CARES/REPOSITIONING. HR 90'S SR WITH AMIODARONE DRIP @ 1 MG/MIN. SBP TRENDING 110'S. PT HAS 2+ GENERALIZED EDEMA. LUNGS DIMINISHED IN THE BASES. PT ENCOURAGED TO COUGH AND DEEP BREATHE. PT STATES "NO" WHEN RN PROMPTS HIM TO TAKE DEEP BREATHS AND COUGH. SATS>90% ON 2 LITERS NASAL CANULA. NO NOTED RESPIRATORY DISTRESS. MIDLINE ISABELLA DRESSING REMAINS C/D/I. ANGELA TO RIGHT QUADRANT-DRESSING C/D/O-NO FURTHER OOZING AROUND ANGELA INSERTION SITE. ANGELA CONTINUES TO PUT OUT GREEN, BILIOUS DRAINAGE. KEARNEY OUTPUT ADEQUATE.
--- NOTE | 2022-10-27 14:45 | NUR ---
EXTENDED DWELL CATHETER PLACED TO RIGHT UPPER ARM. NO OTHER ACUTE CHANGES. REPORT PHONED TO WILMAR MARROQUIN IN PREP TO TRANSFER TO PCU 8. PT BELONGINGS SENT WITH PT.
--- NOTE | 2022-10-27 18:05 | NUR ---
SHIFT SUMMARY; ASSUMED CARE FROM ICU IN AFTERNOON. SLEEPY DURING SHIFT BUT AWAKES TO VERBAL STIMULI. WHEN AWAKE STATES "JUST LEAVE ME ALONE". ALLOWS MINIMAL REPOSITIONING. AMNIO INFUSING AT 16.7 PER EMAR. NS AT 100ML/HR. KEARNEY INPLACE DRAINING CLEAR YELLOW URINE. MIDLINE DRESSING IN PLACE C/D/I. PICCO DRAIN INTACT, JPRAT DRAIN WITH BROWN DRAINAGE. BILATERAL SCD'S, NG TO LOW INTERMITANT SUCTION. REMAINS NPO. VSS, 1L [address], WILL CONTINUE TO MONITOR AND TREAT UNTIL CHANGE OF SHIFT.
[2022-10-28 04:06] LABS: Hematocrit 20.6 % (37.0-53.0); Hemoglobin 6.7 g/dL (13.5-17.5); Mean Corpuscular HGB 31.9 pg (26.0-34.0); Mean Corpuscular HGB Conc 32.5 g/dL (31.5-36.5); Mean Corpuscular Volume 98 fL (80-100); Mean Platelet Volume 9.9 fL (9.1-12.4); Platelet Count 426 K/mm3 (150-400); RDW Standard Deviation 66.6 fL (35.1-46.3)
[2022-10-28 04:41] LABS: Bun/Creatinine Ratio 39.8 (12.0-20.0); Calcium, Blood 7.6 mg/dL (8.5-10.1); Creatinine, Blood 0.98 mg/dL (0.60-1.20); Potassium, Blood 4.5 mmol/L (3.5-5.5)
--- NOTE | 2022-10-28 04:43 | NUR ---
SHIFT SUMMARY AOX1-SELF ONLY @BEGINNING OF SHIFT, UNABLE TO ANSWER ORIENTATION QUESTIONS APPROPRIATELY. MUMMBLES & HAS NONSENSICAL RESPONSES. HOWEVER AROUND 0000 PT AOX2-3 ABLE TO STATE NAME, JULIANA, WAS IN [facility], THOUGHT HE WAS IN [place] & KNEW HE HAD SURGERY. POD 2-EX ABD LAP. MIDLINE ISABELLA DRESSING C/D/I. RLQ ABD ANGELA DRAIN c 40ML GEEN/BROWN BILIOUS DRAINAGE. ABD MOD DISTENDED, HYPOACTIVE BT, TENDER ABD TO PALPATION, ABD SOFT. NGT L NARES SET LIS c 200ML DARK BROWN DRAINAGE c MOD AMOUNT SEDIMENT. PT REPORTED 10-25/10 PAIN, MEDICATED 1X c 1MG IV MORPHINE & 1MG DILAUDID, PT ABLE TO REST WELL. VSS. TELE V. PACED HR 90'S. AMIO GTT RUNNING @16.7ML/HR. KEARNEY PATENT & DRAINING YELLOW URINE. PT VERY WEAK/DECONDITIONED UNABLE TO LIFT EXTREMITIES OFF BED. CALL LIGHT & BED ALARM IN PLACE.
[2022-10-28 12:17] LABS: Hematocrit 24.8 % (37.0-53.0)
--- NOTE | 2022-10-28 16:46 | NUR ---
CASE CONF WITH CM, CONCERNS ABOUT PT MENTAL STATUS. PT RECENTLY HAD SURGERY AND HAS BEEN RECEIVING IV PAIN MEDICATION FOR PAIN. PT WILL AWAKE TO VERBAL STIMULI AND REPORTS HE IS EXPERIENCING PAIN. PT HAS NOT BEEN ABLE TO PARTICIPATE IN THERAPY R/T CONFUSION AND WEAKNESS. WILL CONTINUE TO FOLLOW FOR SYMPTOM MANAGEMENT. CALL PLACED TO PT DTR/POAURBAN (TY) SHE LIVES IN [place] AND HASNT SPOKEN TO THE PT SINCE LAST WEEK. SHE WAS NOT AWARE THAT THE PT WAS IN THE HOSPITAL. UPDATED HER ON PT STATUS AND PROVIDED HER WITH PALLIATIVE CARE PHONE NUMBER FOR FUTURE NEEDS TO GET AHOLD OF US. STARTED GENTLE CONVERSATION ABOUT ADVANCED CARE PLANNING AND CODE STATUS. ADVISED THAT CURRENTLY HE IS A FULL CODE. SHE REPORTS THAT IN THE PAST, HE HAS NOT WANTED HEROIC MEASURES AND THOUGHT WE HAD THIS ON FILE. ADVISED THAT WE HAVE A MEDICAL POA AND ADVANCED DIRECTIVE ON FILE. ADVISED TY THAT I WILL REVIEW THESE DOCUMENTS FOR ANY MENTION OF CPR, INTUBATION, HEROIC MEASURES AND WILL CALL HER BACK IF NEEDED, RAFAEL HOOD. PT CURRENTLY LIVES AT [facility] ALONE AND INDEPENDENTLY. THEY HAVE NOT HAD A CONVERSATION ABOUT WHAT HIS PLAN WOULD BE WHEN HE IS NOT ABLE TO LIVE ALONE [place]. SHE REPORTS HE HAS NOT BEEN O[PEN TO THESE CONVERSATIONS, IN HER WORDS, "HE THINKS HE IS GOING TO LIVE FOREVER. SHE REPORTS PT IS VERY INDEPENDENT, CAN BE DIFFICULT, HAS HX OF DAILY ALCOHOL USE AND HAS BEEN VERY DEPRESSED SINCE LOSING HIS APPROX 10 YEARS AGO. PT HAS NO LOCAL FAMILY, TY LIVES IN [place], [place]. PT RELYS ON FRIENDS AND HELP FREOM THE COUNCIL SERVICES SUCH RIDES TO APPOINTMENTS. ADVISED THAT WE WILL STAY IN TOUCH AND I WILL KEEP HER UPDATED ON THE PT PROGRESS. PALLIATIVE CARE WILL CONTINUE TO FOLLOW.
--- NOTE | 2022-10-28 19:30 | NUR ---
SHIFT SUMMARY PATIENT DROWSY AND SOMEWHAT CONFUSED THROUGHOUT SHIFT. TAKES FREQUENT NAPS. CONFUSED WHEN FIRST WAKES ASKING IF HE IS IN [place]. REORIENTS SOMEWHAT. ABLE TO SLOWLY ANSWER YES OR NO QUESTIONS. WEAK AND DECONDITIONED, Q2 HR TURNS IN BED. PT/OT ORDERED. TRANSFERRED TO SURGICAL FLOOR. NG TUBE WITH MODERATE DARK BROWN OUTPUT. MIDLINE ISABELLA WITH SCANT SHADOWING. ANGELA DRAIN WITH DARK GREEN BILIOUS OUTPUT, DECREASING THIS SHIFT. LIGHTENING IN COLOR. TELE VENTRICULAR PACED IN 90S. IV FLUID RUNNING.
--- NOTE | 2022-10-28 22:43 | NUR ---
RHYTHM/PHYSICIAN COMMUNICATION *LATE ENTRY* AROUND 2114, TELE MEDICAL PRACTICE MANAGER REPORTED PT HAD 21 B RUN V. TACH @2044 & SINCE THEN WAS V. PACED HR 99. @2044 MYSELF & CHARGE NURSE FOUND PT HAD ATTEMPTED TO REMOVE NG TUBE, THEREFORE WE WERE ADVANCING NG TUBE BACK IN PLACE & PT WAS YELLING & AGITATED. VSS. INFORMED DR GARCIA OF RHYTHM CHANGE, HE ORDERED AM LABS. ALSO 1X DOSE ATIVAN FOR AGITATION/INCREASED CONFUSION. WILL MONITOR PT.
[2022-10-29 04:35] LABS: Hematocrit 21.4 % (37.0-53.0); Hemoglobin 6.8 g/dL (13.5-17.5); Mean Corpuscular HGB 30.9 pg (26.0-34.0); Mean Corpuscular HGB Conc 31.8 g/dL (31.5-36.5); Mean Corpuscular Volume 97 fL (80-100); Mean Platelet Volume 9.5 fL (9.1-12.4); Platelet Count 435 K/mm3 (150-400); RDW Coefficient Variation 18.3 % (11.7-14.2); RDW Standard Deviation 63.5 fL (35.1-46.3); White Blood Cell Count 13.13 K/mm3 (4.00-11.30)
[2022-10-29 06:56] LABS: Calcium, Blood 7.7 mg/dL (8.5-10.1); Creatinine, Blood 0.74 mg/dL (0.60-1.20); Potassium, Blood 3.6 mmol/L (3.5-5.5)
--- NOTE | 2022-10-29 07:57 | NUR ---
SHIFT SUMMARY POD 3, EX ABD LAP FOR BOWEL PERF REPAIR. ABD MOD DISTENDED, SOFT, TENDER TO PALPATION. ANGELA DRAIN OUTPUT INCREASED TONIGHT TO 360ML, DARK BLACK c RED TINGE IN TUBE. NG TUBE c 500ML DK BROWN DRAINAGE c MOD AMOUNT BROWN FLAKES/SEDIMENT THAT RESEMBLES COFFEE GROUNDS. VSS. PT AOX1-2 SELF, SOMETIMES TOWN. MENTATION WAXES & WANES, CONFUSED. PT HAVING VISUAL HALLUCINATIONS REPORTED SEEING "HIS BROTHER" IN RM & A "BEAR". INCREASED AGITATION T/O NIGHT, YELLED & CURSED @BATTERY REPAIRER. YELLING OUT. THIS AM AROUND 0630 PT PULLED MIDLINE ISABELLA OFF, CLEANSED SURGICAL SITE & PLACED MEDIPORE DRESSING. INFORMED DR JOYA OF INCREASE AGITATION & HX ETOH, HE ORDERED CIWAS, PT CIWA 9 FOR TREMORS, SWEATING, AGITATION, CONFUSION, VISUAL HALLUCINATIONS. PT GIVEN 1MG IV ATIVAN PER DR JOYA ORDER. ALSO INFORMED DR OF HGB @6.8 THIS AM & HE ORDERED 1U PRBC, ASKED ABOUT ABD IMAGING & HE STATED TO PASS TO SURGEON. ROUGHLY AROUND 0745 PT REMOVED NG TUBE WHILE GIVING DAY NURSE REPORT. CALL LIGHT & BED ALARM IN PLACE, PT ON CAMERA.
--- NOTE | 2022-10-29 08:25 | NUR ---
TELEPHONE CALL TO HOSPITALIST DR NOLASCO, PT PULLED NG TUBE, REFUSES REINSERTION, REQUEST FOR SOFT WRIST RESTRAINTS(ORDER RECEIVED), FOR PULLING LINES/CORDS AND INTERFERING WITH CARE(KEEPS REMOVING TELE AND PULLING ON KEARNEY AND ANGELA LINE. DR WILL BE HERE IN 10 MIN TO ASSESS PT.
--- NOTE | 2022-10-29 10:30 | NUR ---
REPORT PROVIDED TO ZHANG FREGOSO RN.
--- NOTE | 2022-10-29 10:30 | NUR ---
TELEPHONE CALL TO HOSPITALIST DR NOLASCO, PT NOT RESPONDING WELL TO ATIVAN, S/SX OF WORSENING, REQUEST TO TRANSFER TO PCU, ORDER RECEIVED.
--- NOTE | 2022-10-29 13:10 | NUR ---
PATIENT TRANSFER TO PCU 9 AT 1100 AM. PATIENT ABLE TO TELL ME NAME, BIRTHDAY, AND WHERE HE IS. UNABLE TO TELL ME DETAILS ON WHY HE IS HERE. TRYING TO GET OUT OF BED, PULLING AT LINES/CORDS, AND SAYING HE NEEDS "TO GET CESAR FROM THE CAR". AT TIMES SAYING NONSENSICAL STATEMENTS. CIWA SCORING 8. NOT FOLLOWING COMMANDS WITH ORAL CARE AND DIFFICULT TO REDIRECT. BILATERAL WRIST RESTRAINTS IN PLACE. ON ROOM AIR - 3L NASAL CANNULA. NEEDING 3L WHEN SLEEPING. SATING MID -HIGH 90'S. LUNGS SOUNDING COARSE AND DIM IN BASES. OCCASIONAL COUGH. SUCTION AT BEDSIDE. Q4 ORAL CARE. TELE SHOWING V PACED ST WITH HR 90-110'S. BP ELEVATED. DENIES CHEST PAIN/PRESSURE. NO EDEMA NOTED. 1 UNIT OF PRBC INFUSING AT THIS TIME. SCD'S IN PLACE. ANGELA DRAIN TO RLQ, DRAINING DARK BROWN LIQUID. MIDLINE INCISION WITH C/D/I DRESSING IN PLACE. DR. LAGUNA IN TO SEE PATIENT ON ARRIVAL TO PCU. THIS RN UPDATED ON INCREASED AGGITATION, AND PULLING OF ISABELLA AND NG TUBE. NO NEW ORDERS TO REPLACE. NPO. KEARNEY CATH IN PLACE DRAINING CLEAR/YELLOW URINE. CATH CARE COMPLETED. PATIENT COMPLAINS OF ABDOMINAL PAIN. MEDICATED PER EMAR WITH GOOD RELIED. PATIENT SLEEPING AT THIS TIME. VITAL SIGNS STABLE. WILL CONTINUE TO MONITOR.
--- NOTE | 2022-10-29 13:42 | NUR ---
DR. HAHN BY TO SEE PATIENT. THIS RN UPDATED ON ELEVATED BP. DR. HAHN DISCUSSED PALLIATIVE CARE TALKING WITH DAUGHTER AND PATIENT STILL DRINKING. CIWA ORDERS IN PLACE. 1200 CIWA SCORE 8. ORDERS TO RECHECK H&H 30-40 MIN POST PRBC INFUSION AND CALL DR. HAHN IF HGB BELOW 7.0. ORDERS IN PLACE. THIS RN ALSO UPDATED DR. HAHN ON 1200 BLOOD SUGAR OF 231. PATIENT SLEEPING AT THIS TIME.
[2022-10-29 14:31] LABS: Hematocrit 23.4 % (37.0-53.0); Hemoglobin 7.6 g/dL (13.5-17.5)
--- NOTE | 2022-10-29 15:15 | NUR ---
CALL PLACED TO PT DAUGHTER, TY TO GIVE HER AN UPDATE ON PT STATUS AND THAT HE WAS MOVED TO PCU. ALSO ADVISED OF CASE MEETING LATER TODAY WITH MARTITA FARIAS AND SHE IS WILLING AND AVIAIABLE TO MEET.
--- NOTE | 2022-10-29 16:51 | NUR ---
KEARNEY CATH NOT DRAINING. BLADDER SCAN SHOWING 973 ML. KEARNEY REMOVED AND REPLACED WITH 16 TOGOLESE. SEE BLADDER MANAGEMENT DOCUMENTATION. KEARNEY PATENT AND DRAINING YELLOW URINE. NEW UA SENT TO LAB.
[2022-10-29 16:57] LABS: Source, Urine Foley catheter
--- NOTE | 2022-10-29 17:26 | NUR ---
SHIFT SUMMARY: VITAL SIGNS REMAIN STABLE. PATIENT CIWA SCORE RANGING FROM 8-10MG. MEDICATED X1 FOR PAIN AND CIWA SCORE. PATIENT RESTING AT THIS TIME. REMAINS CONFUSED. BILATERAL WRIST RESTRAINTS IN PLACE WITH BREAKS WHILE RN IS IN ROOM. Q2 TURNING AND NEEDED. Q4 ORAL CARE, Q6 BLOOD SUGARS. REMAINS ON 3L NASAL CANNULA. REMAINS V PACED WITH HR 90-110'S. BP REMAINS ELEVATED. ANGELA DRAIN CONTINUES TO DRAIN DARK BROWN LIQUID. DRESSING REMAINS C/D/I. NS INFUSING AT 100 ML/HR. HGB RECHECK TRENDING UP. SEE PREVIOUS NOTE FOR KEARNEY CATH REPLACEMENT. BOWEL TONES REMAIN PRESENT. CALL LIGHT IN REACH. WILL CONTINUE TO MONITOR AND REPORT OFF TO ONCOMING RN.
[2022-10-29 17:42] LABS: Appearance, Urine Hazy (Clear); Bilirubin, Urine Neg (Neg); Blood, Urine 5+ (Neg); Color, Urine Yellow (P-Yellow); Glucose Qualitative, Urine 2+ (Neg); Ketones, Urine 3+ (Neg); Leukocyte Esterase, Urine 1+ (Neg); Nitrite, Urine Neg (Neg); Protein, Urine 3+ (Neg); Specific Gravity, Urine 1.015 (1.003-1.022); Urobilinogen, Urine NORM (Normal)
[2022-10-29 18:37] LABS: Bacteria Mod /hpf; Red Blood Cells, Urine 50-100 /hpf (0-2); Squamous Epithelial Cells Few /hpf (Few)
[2022-10-29 18:38] LABS: Amorphous Light (0-Heavy); Mucus Light (0-Heavy); Yeast/Fungi Urine Mod /hpf
[2022-10-30 05:12] LABS: Hematocrit 22.8 % (37.0-53.0); Hemoglobin 7.4 g/dL (13.5-17.5); Mean Corpuscular HGB 31.5 pg (26.0-34.0); Mean Corpuscular HGB Conc 32.5 g/dL (31.5-36.5); Mean Corpuscular Volume 97 fL (80-100); Mean Platelet Volume 9.3 fL (9.1-12.4); Platelet Count 411 K/mm3 (150-400); RDW Standard Deviation 62.7 fL (35.1-46.3); Red Blood Cell Count 2.35 M/mm3 (4.30-5.90); White Blood Cell Count 14.84 K/mm3 (4.00-11.30)
[2022-10-30 05:41] LABS: Bun/Creatinine Ratio 22.6 (12.0-20.0); Calcium, Blood 7.9 mg/dL (8.5-10.1); Creatinine, Blood 0.75 mg/dL (0.60-1.20); Potassium, Blood 3.5 mmol/L (3.5-5.5)
--- NOTE | 2022-10-30 06:00 | NUR ---
SHIFT SUMMARY OVERNIGHT, PATIENT CONFUSED, ORIENTED X1-2. ANXIOUS, AGITATED. DIFFICULT TO REDIRECT. CONTINUES TO GRAB AT DRAINS, TELE WIRES, AND KEARNEY, EVEN WHILE IN BILATERAL SOFT WRIST RESTRAINTS. FREQUENTLY SAYING NONSENSICAL THINGS AND CALLING OUT FOR PEOPLE WHO ARE NOT PRESENT. MEDICATED PER CIWA X1. ABDOMEN REMAINS TENDER AND PAINFUL; MEDICATED X2 PER MAR. TELE SHOWING V-PACED, HR 80-90S. SBP 140S. 1-3L NC WHILE SLEEPING. NPO. 300CC OF VISCOUS, BROWN OUTPUT FROM RIGHT ANGELA DRAIN. NO BM, HOWEVER BOWEL SOUNDS ARE MORE ACTIVE. 400CC OUT OF KEARNEY CATH. TURNED Q2, DESPITE PATIENT PULLING PILLOWS FROM BEHIND HIM TRYING TO TURN HIMSELF ONTO HIS BACK. MIDABDOMINAL DRESSING C/D/I. WILL CONTINUE TO MONITOR.
--- NOTE | 2022-10-30 18:37 | NUR ---
SHIFT SUMMARY PT A/O TO SELF ONLY. PT NOT RESPONDING TO QUESTIONS APPROPRIATELY. WHEN ASKED WHERE HE IS, HE HAS DIFFERENT RESPONSES SUCH "[place]." PT SHOUTING FREQUENTLY ASKING FOR VARIOUS PEOPLE. PT SCORED 10 ON CIWA T/O SHIFT. PT ON 1-2L NC. ATTEMPTED TO TITRATE PT AND SPO2 DOWN TO 88% ON RA. PT CURRENLTY ON 1L AND SPO2 AT 96%. PT VPACED. RATE RANGING FROM 85-110BPM. PT HTN WITH SBP IN THE 170'S. DR HAHN CONTACTED. CLONIDINE PATCH AND ONE TIME DOSE OF LABETOLOL GIVEN TO PT. BP NOW STABLE. PT HAS ANGELA DRAIN IN RLQ. DRAIN HAD MINIMAL OUTPUT UNTIL APPROX 1700, AND THEN OUTPUT SIGNIFICANTLY INCREASED. APPROX 525ML OUT IN ONE HOUR. DR MALDONADO NOTIFIED. ORDERS TO DRAW STAT H&H AND CONTINUE TO MONITOR. PT C/O INCREASED ABD PAIN WITH INCREASED DRAINAGE. PT REMAINS IN RESTRAINTS DUE TO PT CONTINUING TO PULL LINES AND TO AVOID PULLING OF ANGELA DRAIN. PT REPOSITIONED Q2H AND PT ALSO VERY ACTIVE IN BED. 1/2 NS INFUSING AT 100/HR. PT BT PRESENT, NO BM TODAY. REPORT GIVEN TO WILMAR ROTH TO ASSUME CARE.
[2022-10-30 18:39] LABS: Hematocrit 20.3 % (37.0-53.0); Hemoglobin 6.4 g/dL (13.5-17.5)
[2022-10-31 02:20] LABS: Albumin, Blood 1.9 g/dL (3.4-5.0); Albumin/Globulin Ratio 0.5 (0.8-1.8); Bilirubin, Total 2.8 mg/dL (0.1-1.0); Bun/Creatinine Ratio 19.6 (12.0-20.0); Creatinine, Blood 0.72 mg/dL (0.60-1.20); Globulin, Blood 3.6 g/dL (2.2-4.0); Magnesium, Blood 2.6 mg/dL (1.6-2.4); Phosphorus, Blood 1.5 mg/dL (2.5-4.9); Potassium, Blood 3.5 mmol/L (3.5-5.5); Total Protein, Blood 5.5 g/dL (6.4-8.2)
[2022-10-31 02:29] LABS: Hematocrit 27.5 % (37.0-53.0); Hemoglobin 8.9 g/dL (13.5-17.5); Mean Corpuscular HGB 30.4 pg (26.0-34.0); Mean Corpuscular HGB Conc 32.4 g/dL (31.5-36.5); Mean Corpuscular Volume 94 fL (80-100); Mean Platelet Volume 9.7 fL (9.1-12.4); Platelet Count 415 K/mm3 (150-400); RDW Coefficient Variation 18.3 % (11.7-14.2); RDW Standard Deviation 61.5 fL (35.1-46.3); Red Blood Cell Count 2.93 M/mm3 (4.30-5.90); White Blood Cell Count 14.73 K/mm3 (4.00-11.30)
--- NOTE | 2022-10-31 06:35 | NUR ---
SHIFT SUMMARY NO ACUTE CHANGES. INTERMITTENT PERIODS OF AGITATION NOTED. CALMS WITH REASSURANCE OCCASIONALLY. ORIENTED TO SELF ONLY. FREQUENTLY CALLS OUT. MEDICATED WITH ATIVAN 2MG IV. MEDICATED WITH DILAUDID 1MG IV X 1 DOSE FOR C/O PAIN. ANGELA DRAIN WITH 645MLS OUTPUT- STARTED OUT WITH DARK BROWN DRAINAGE, BUT NOW IS A DARK MAROON COLOR. ABDOMINAL MIDLINE DRSG WITH SMALL AMOUNT OF OLD DRAINAGE. DRSG AROUND ANGELA CHANGED X 1 TIME. NPO. KEARNEY PATENT AND DRAINING TO GRAVITY. VSS- SLIGHLTY HYPERTENSIVE AT TIMES. O2 1L NC. RECEIVED TWO UNITS PRBC DURING SHIFT PER ORDER- AM H+H STABLE. 1/2NS INFUSING AT 100MLS/HR PER ORDER. POTASSIUM PHOSPHATE STARTED THIS AM PER ORDER. WILL REPORT TO ONCOMING RN WHEN AVAILABLE.
--- NOTE | 2022-10-31 18:46 | NUR ---
SHIFT SUMMARY NO ACUTE CHANGES WITH PT TODAY. PT REMAINS ORIENTED TO SELF ONLY. FOLLOWS SOME COMMANDS. PT ASLEEP UNLESS AROUSED BUT DOES RESPOND TO MOST VERBAL STIMULI. PT SHOUTING OUT T/O SHIFT AND SAYING THINGS SUCH "MOM" "CAN YOU GET MY MOM." PT REMAINS ON 1L NC. ATTEMPTED TO TITRATE PT OFF TODAY AND SPO2 WAS BETWEEN 86-88%. PT ON TELE, RATE IN THE 90-110'S, V PACED. PT ABD EXTREMELY PAINFUL WITH PALPATION AND MOVEMENT. PT MEDICATED PER EMAR. CIWA'S REMAIN 10-11. PT MEDICATED WITH ATIVAN PRN PER EMAR. ANGELA DRAIN REMAINS IN PLACE. DRAINING SIGNIFICANT AMOUNT OF FLUID. DRAINAGE IS DARK RED/BROWN. PT REMAINS IN 2 SOFT WRIST RESTRAINTS. ARMS ELEVATED ON PILLOWS. PT FREQUENTLY PUSHING THEM ON THE GROUND. PT REPOSITIONED Q2H. PT STARTED ON D5 AND INSULIN GLARGINE TODAY IN ATTEMPT TO CORRECT ELEVATED SODIUM. NG TUBE PLACED ON INTERMITTENT SUCTION DUE TO INCREASED OUTPUT IN ANGELA DRAIN. PT ALSO HAD PICC LINE PLACED IN JIE FOR TPN. TPN STARTED. WILL CONTINUE TO CARE FOR PT AND REPORT TO ONCOMING RN.
[2022-11-01 04:00] LABS: Hematocrit 24.1 % (37.0-53.0); Hemoglobin 7.9 g/dL (13.5-17.5); Mean Corpuscular HGB 30.6 pg (26.0-34.0); Mean Corpuscular HGB Conc 32.8 g/dL (31.5-36.5); Mean Corpuscular Volume 93 fL (80-100); Mean Platelet Volume 10.1 fL (9.1-12.4); Platelet Count 339 K/mm3 (150-400); RDW Coefficient Variation 17.9 % (11.7-14.2); RDW Standard Deviation 60.6 fL (35.1-46.3); Red Blood Cell Count 2.58 M/mm3 (4.30-5.90); White Blood Cell Count 13.85 K/mm3 (4.00-11.30)
[2022-11-01 04:37] LABS: Alanine Aminotransfer (ALT/SGP 33 U/L (12-78); Albumin, Blood 1.7 g/dL (3.4-5.0); Albumin/Globulin Ratio 0.5 (0.8-1.8); Alk Phos 331 U/L (50-136); Anion Gap 1 mmol/L (6-16); Aspartate Aminotrans (AST/SGOT 33 U/L (12-37); Bilirubin, Total 1.5 mg/dL (0.1-1.0); Blood Urea Nitrogen 14 mg/dL (8-24); Bun/Creatinine Ratio 22.4 (12.0-20.0); CO2, Blood 34 mmol/L (21-32); Calcium, Blood 7.7 mg/dL (8.5-10.1); Chloride, Blood 108 mmol/L (98-108); Creatinine, Blood 0.63 mg/dL (0.60-1.20); Globulin, Blood 3.4 g/dL (2.2-4.0); Glomerular Filtration Rate 97 (60-); Glucose, Blood 306 mg/dL (70-99); Magnesium, Blood 2.3 mg/dL (1.6-2.4); Phosphorus, Blood 1.4 mg/dL (2.5-4.9); Potassium, Blood 3.2 mmol/L (3.5-5.5); Sodium, Blood 143 mmol/L (136-145); Total Protein, Blood 5.1 g/dL (6.4-8.2); Triglycerides 161 mg/dL (30-160)
--- NOTE | 2022-11-01 05:41 | NUR ---
SHIFT SUMMARY NO ACUTE CHANGES. ANGELA DRAIN WITH 580 OUTPUT, REMAINS DARK BROWN/MAROON. DRESSING CHANGED. PT REMAINS RESTRAINED, BUT WAS STILL ABLE TO ALMOST PULL NGT OUT. MIDLINE DRESSING REAMINS CDI. PT'S CIWAS BEING SCORED, AVERAGE OF 8 BUT WILL RISE >10 AT TIMES, MEDS PER EMAR TO PREVENT AGITATION EVENTS THAT WOULD RESULT IN PULLING OF THE NGT/ANGELA DRAIN. PT BEING TURNED BY STAFF. AMPLE BREAKS FROM RESTRAINTS PROVIDED WITH STAFF IN ROOM. NC O2 BEING TITRAED ACCORDING TO NEEDS WITH MEDICATION ADMINISTRATIONS BUT GENERALLY REMAIN AROUND 1-2LNC. KEARNEY PATENT. PICC PATENT WELL POWERGLIDE. BED ALARM ON.
--- NOTE | 2022-11-01 08:45 | NUR ---
DRESSING CHANGE ABD MIDLINE DRESSING SOILED R/T ANGELA SITE. BOTH DRESSING REMOVED. ANGELA SITE RLQ DRAINING MOD SS FLUID AROUND INSERSTION SITE. ANGELA TUBING STRIPPED AND EMPTIED 40ML SS FLUID. CLEANED SITE THEN PREPPED SKIN WITH BARRIER NO STING SWABS. PLACED NEW DRAIN 4X4 DRESSING AND SECURED WITH DRESSING TAPE. MIDLINE INCISION WTH CHAY INTACT NO SIGNS OF INFECTION, PLACED NEW MEDIPORE DRESSING.
--- NOTE | 2022-11-01 18:31 | NUR ---
PT REMAINS WITH DARK BROWN TO RED DRAINAGE FROM LOW INTERMITTENT SUCTION. ANGELA DRAIN ALSO CONTINUES TO DRAIN DARK BROWN TO RED THICK DRAINAGE THAT APPEARS TO BE SLOWING DOWN THIS SHIFT. PT LESS AGITATED DURING THIS SHIFT, HE DOES WAKE OCCASSIONALLY AN REPORTS PAIN, HE IS UNABLE TO REPORT PAIN ON A SCALE SO FACCES IS USED. HE RESPONDS WELL TO DILAUDID FOR PAIN. COMPUTER ENGINEERING PROFESSOR REMAIN IN PLACE TO PROTECT ANGELA DRAIN AND NG TUBE WHICH ARE CHECKED EVER 2 HOURS, PT TURNED EVERY TWO HOURS. VSS, TACHYCARDIA NOTED ON MONITOR FOR MOST OF SHIFT. PT IS ALERT TO SELF. DRESSINGS REPLACED TODAY. NG CANISTERS CHANGED. [place] [employer] SOCIAL WORKERS UPDATED X2 THAT WERE IN TO SEE PT. ORDER PLACED AT THE END OF THE SHIFT FOR K+ PHOSPHATE REPLACEMENT.
[2022-11-02 04:25] LABS: Hematocrit 20.3 % (37.0-53.0); Hemoglobin 6.6 g/dL (13.5-17.5)
[2022-11-02 04:43] LABS: Bun/Creatinine Ratio 24.1 (12.0-20.0); Calcium, Blood 7.9 mg/dL (8.5-10.1); Creatinine, Blood 0.66 mg/dL (0.60-1.20); Magnesium, Blood 2.3 mg/dL (1.6-2.4); Phosphorus, Blood 1.9 mg/dL (2.5-4.9); Potassium, Blood 3.3 mmol/L (3.5-5.5)
--- NOTE | 2022-11-02 05:08 | NUR ---
SHIFT SUMMARY: Patient confused, only oriented to person. Impulsive and intermittently agitated. Complains of pain, controlled by dilaudid and morphine PRN. Medicated once with ativan per CIWA protocol. Restraints continued due to impulsivity, attempts to pull out NG tube. 0445- Hemoglobin this morning of 6.6. MD notified and order for 1 unit PRBCs received. Patient still has a moderate amount of dark red output from ANGELA drain.
[2022-11-02 14:15] LABS: Hematocrit 22.3 % (37.0-53.0); Hemoglobin 7.6 g/dL (13.5-17.5)
--- NOTE | 2022-11-02 18:25 | NUR ---
PT IS MORE ALERT TODAY, MORE AGITATED, CALLING OUT, CURSING SHOUTING "GOD DAMN IT". PT HAS BEEN TREATED WITH ATIVAN FOR CIWA OF 8-9 AND TREATED WITH DILAUDID AND MORPHINE FOR REPORTED PAIN, PT IS NOT ABLE TO USE PAIN REPORTING SCALE. WRIST RESTRAINTS REMAIN IN PLACE, ROM PERFORMED ON ARMS T/O DAY ALONG WITH REPOSITIONING. ANGELA DRAIN CONITINUES TO DRAIN LARGE AMOUNTS OF GREEN THICK DRAINAGE, DRESSING CHANGED THIS EVENING. NG REMAINS HOOKED TO LOW INTERMITENT SUCTION WITH SCANT DRAINAGE
[2022-11-03 04:08] LABS: BASOPHILS ABSOLUTE AUTO 0.04 K/mm3 (0.00-0.23); BASOPHILS PERCENT AUTO 0 % (0-2); EOSINOPHILS ABSOLUTE AUTO 0.24 K/mm3 (0.00-0.68); EOSINOPHILS PERCENT AUTO 2 % (0-6); Hematocrit 24.7 % (37.0-53.0); IMMATURE GRAN PERCENT AUTO 1 % (0-1); LYMPHOCYTES ABSOLUTE AUTO 0.73 K/mm3 (0.84-5.20); LYMPHOCYTES PERCENT AUTO 5 % (21-46); MONOCYTES ABSOLUTE AUTO 0.86 K/mm3 (0.16-1.47); MONOCYTES PERCENT AUTO 5 % (4-13); Mean Corpuscular HGB Conc 32.4 g/dL (31.5-36.5); Mean Corpuscular Volume 93 fL (80-100); Mean Platelet Volume 10.8 fL (9.1-12.4); NEUTROPHILS ABSOLUTE AUTO 14.19 K/mm3 (1.96-9.15); NEUTROPHILS PERCENT AUTO 87 % (41-73); Platelet Count 326 K/mm3 (150-400); RDW Coefficient Variation 16.8 % (11.7-14.2); RDW Standard Deviation 55.2 fL (35.1-46.3); Red Blood Cell Count 2.67 M/mm3 (4.30-5.90); White Blood Cell Count 16.26 K/mm3 (4.00-11.30)
[2022-11-03 04:24] LABS: Albumin, Blood 1.7 g/dL (3.4-5.0); Anion Gap 5 mmol/L (6-16); Blood Urea Nitrogen 16 mg/dL (8-24); Bun/Creatinine Ratio 24.5 (12.0-20.0); CO2, Blood 31 mmol/L (21-32); Calcium, Blood 8.3 mg/dL (8.5-10.1); Chloride, Blood 104 mmol/L (98-108); Creatinine, Blood 0.65 mg/dL (0.60-1.20); Glomerular Filtration Rate 96 (60-); Glucose, Blood 302 mg/dL (70-99); Phosphorus, Blood 1.8 mg/dL (2.5-4.9); Potassium, Blood 3.7 mmol/L (3.5-5.5); Sodium, Blood 140 mmol/L (136-145)
--- NOTE | 2022-11-03 06:25 | NUR ---
SHIFT SUMMARY: PT ORIENTED TO SELF ONLY THROUGHOUT SHIFT. MEDLINE INCISION HAS GAUZE DRESSING WITH SURGICAL TAPE COVERING C/D/I, INCISION SITE NOT OBSERVED DUE TO DRESSING IN PLACE. ANGELA VILLARREAL PUTTING OUT GREEN/BROWN THICK FLUID, EMPTIED FREQUENTLY. PT REPORTS PAIN IN ABDOMEN BUT UNABLE TO GIVE ACCURATE NUMBER FOR PAIN STATING "IT'S BETWEEN 25 AND 30", UNABLE TO REEDUCATE AT THIS TIME DUE TO CONFUSION. APPEARS IN MILD DISTRESS DUE TO FACIAL GRIMACING AND CALLING OUT. MEDICATED FOR PAIN IN ABDOMEN X 2, SEE EMAR. PT CONTINUES TO YELL OUT "HELP ME". MEDICATED FOR ANXIETY WITH ATIVAN AND ZYPREXA WITH MODERATE RESULTS, PT CONTINUES TO CALL OUT FREQUENTLY. INTERMITTENTLY PT STATING HE NEEDS TO VOID, ENCOURAGED KEARNEY CATHETER IN PLACE. DRAINING CLEAR, YELLOW URINE IN ADIQUATE AMOUNTS. CATHETER REPOSITIONED, CONTINUED TO DRAIN CLEAR YELLOW URINE. BLADDER SCAN INDICATED > [address] KEARNEY CATHETER IRRIGATED, SCANT AMOUNT OF SEDAMENT NOTED IN KEARNEY CATHETER WITH IRRIGATION AND GOOD URINE RETURN RECEIVED. PT NOT SLEEPING, NOT CALLING OUT OR GRIMACING. NG TUBE IN PLACE, SCANT AMOUNT OF BROWN OUTPUT NOTED IN CANISTER. CONTINUES SOFT WRIST RESTRAINTS DUE TO ATTEPTING TO PULL AT TUBES AND LINES. FREQUENT REPOSITIONED FOR COMFORT.
--- NOTE | 2022-11-03 17:32 | NUR ---
PT WITH 490ML OUTPUT THROUGH ANGELA DRAIN THIS SHIFT. REDNESS AND FIRMNESS THAT SEAM PRESS OPERATOR HAD NOTED HAS LESSENED THROUGH THE DAY BUT DOES STILL REMAIN. DR LIU IS MADE AWARE OF THIS AND HE STS THAT STILL CAN BE PREVENTED THROUGH MORE DILIGENT EMPTYING OF ANGELA DRAIN. DRAIN IS CHECKED HOURLY AND DRAINED PRIOR TO BECOMING MORE THAN 40% FULL TO IMPROVE DRAINAGE FROM ABDOMEN. DRAINAGE CONTINUES TO BE GREEN. NG REMAINS HOOKED TO LOW INTERMITTENT SUCTION WITH VERY SCANT DRAINAGE. VSS. PT MORE ALERT, HE IS MORE ABLE TO MAKE NEEDS KNOWN, ABLE TO TELL STAFF WHEN HE REQUIRES PAIN MEDICATION. KEARNEY DRAINING WELL NO SIGNS OF RETENTION
[2022-11-04 03:33] LABS: BASOPHILS ABSOLUTE AUTO 0.02 K/mm3 (0.00-0.23); BASOPHILS PERCENT AUTO 0 % (0-2); EOSINOPHILS ABSOLUTE AUTO 0.19 K/mm3 (0.00-0.68); EOSINOPHILS PERCENT AUTO 1 % (0-6); Hematocrit 22.5 % (37.0-53.0); Hemoglobin 7.1 g/dL (13.5-17.5); IMMATURE GRAN ABSOLUTE AUTO 0.11 K/mm3 (0.00-0.10); IMMATURE GRAN PERCENT AUTO 1 % (0-1); LYMPHOCYTES ABSOLUTE AUTO 0.47 K/mm3 (0.84-5.20); LYMPHOCYTES PERCENT AUTO 4 % (21-46); MONOCYTES ABSOLUTE AUTO 0.72 K/mm3 (0.16-1.47); MONOCYTES PERCENT AUTO 5 % (4-13); Mean Corpuscular HGB 29.8 pg (26.0-34.0); Mean Corpuscular HGB Conc 31.6 g/dL (31.5-36.5); Mean Corpuscular Volume 95 fL (80-100); Mean Platelet Volume 10.8 fL (9.1-12.4); NEUTROPHILS ABSOLUTE AUTO 12.04 K/mm3 (1.96-9.15); NEUTROPHILS PERCENT AUTO 89 % (41-73); Platelet Count 302 K/mm3 (150-400); RDW Coefficient Variation 16.3 % (11.7-14.2); RDW Standard Deviation 55.8 fL (35.1-46.3); Red Blood Cell Count 2.38 M/mm3 (4.30-5.90); White Blood Cell Count 13.55 K/mm3 (4.00-11.30)
[2022-11-04 03:51] LABS: Calcium, Blood 8.3 mg/dL (8.5-10.1); Creatinine, Blood 0.65 mg/dL (0.60-1.20); Potassium, Blood 3.6 mmol/L (3.5-5.5)
--- NOTE | 2022-11-04 06:06 | NUR ---
SHIFT SUMMARY PT A&O TO SELF AND PLACE, YELLS OUT TO COMMUNICATE NEEDS RATHER THAN USING CALL LIGHT. VSS, SpO2> 92% RA, DENIES SOB. BP STABLE, PACED 90's, DENIES CP/PRESSURE. PT REPORTS PAIN AT ABDOMINAL INCISION SITE AND NG TUBE INSERTION SITE. MANAGED PER EMAR. ANGELA DRAIN REMAINS IN PLACE, EMPTIED FREQUENTLY. NG TUBE IN PLACE. PT REMAINS IN BILATERAL SOFT WRIST RESTRAINTS. KEARNEY CATHETER IN PLACE, PATENT, DRAINING TO GRAVITY. IRRIGATED KEARNEY CATHETER TO MAINTAIN PATENCY. PT WITH REDDENED, WARM AREA TO THE RIGHT OF INCISION, NOTED DURING PREVIOUS SHIFT. CIWA 0 THROUGHOUT SHIFT. NO OTHER EVENTS, WILL REPORT TO ONCOMING RN.
[2022-11-04 13:21] LABS: Hemoglobin 7.1 g/dL (13.5-17.5)
--- NOTE | 2022-11-04 18:08 | NUR ---
Today I spoke with both pt's stepdaughter Danish (Ty) and [facility] congregational care pastor Starla regarding this pt's status. Both are beginning to ask questions about fdc planning, code status, and what the plans might look like if the pt does not improve. Also discussed with Dr. Emerson. No changes in plan at this time. Palliaive will remain available.
--- NOTE | 2022-11-04 18:25 | NUR ---
SHIFT SUMMARY PT A/O TO SELF AND SITUATION. PT ANSWERS MOST QUESTIONS APPROPRIATELY. COOPERATIVE WITH MOST CARE. PT VPACED, REMAINS ON TELE. PT ON RA MAJORITY OF SHIFT. PT BRIEFLY DESATTED TO MID 80'S WHEN SLEEPING. PLACED ON 1L NC AND PT RECOVERED QUICKLY. PT BACK ON RA NOW, APPEARS TO BE SLEEPING, AND SPO2 96%. PT WORKED WITH OT AND PT TODAY AND WAS COOPERATIVE. ANGELA DRAIN REMAINS IN PLACE WITH INCREASE IN OUTPUT, COLOR REMAINED DARK GREEN. NG TUBE STILL PATENT WITH MINIMAL DARK BROWN OUTPUT. PT REMAINS IN SOFT WRIST RESTRAINTS HE CONTINUES TO TRY AND PULL LINES. PT REPOSITIONED Q2H. PT FREQUENTLY ASKING FOR WATER AND REMINDED THAT HE HAS TO REMAIN NPO. ORAL CARE PERFORMED Q4H. WILL CONTINUE TO CARE FOR PT AND REPORT TO ONCOMING RN.
[2022-11-05 03:54] LABS: BASOPHILS ABSOLUTE AUTO 0.02 K/mm3 (0.00-0.23); BASOPHILS PERCENT AUTO 0 % (0-2); EOSINOPHILS ABSOLUTE AUTO 0.15 K/mm3 (0.00-0.68); EOSINOPHILS PERCENT AUTO 1 % (0-6); Hematocrit 24.4 % (37.0-53.0); IMMATURE GRAN ABSOLUTE AUTO 0.11 K/mm3 (0.00-0.10); IMMATURE GRAN PERCENT AUTO 1 % (0-1); LYMPHOCYTES ABSOLUTE AUTO 1.09 K/mm3 (0.84-5.20); LYMPHOCYTES PERCENT AUTO 9 % (21-46); MONOCYTES ABSOLUTE AUTO 0.88 K/mm3 (0.16-1.47); MONOCYTES PERCENT AUTO 7 % (4-13); Mean Corpuscular HGB 30.4 pg (26.0-34.0); Mean Corpuscular HGB Conc 32.8 g/dL (31.5-36.5); Mean Corpuscular Volume 93 fL (80-100); Mean Platelet Volume 11.6 fL (9.1-12.4); NEUTROPHILS ABSOLUTE AUTO 9.64 K/mm3 (1.96-9.15); NEUTROPHILS PERCENT AUTO 81 % (41-73); Platelet Count 303 K/mm3 (150-400); RDW Coefficient Variation 15.7 % (11.7-14.2); RDW Standard Deviation 52.3 fL (35.1-46.3); Red Blood Cell Count 2.63 M/mm3 (4.30-5.90); White Blood Cell Count 11.89 K/mm3 (4.00-11.30)
--- NOTE | 2022-11-05 04:53 | NUR ---
SHIFT SUMMARY PT A&O TO SELF AND PLACE, YELLS OUT TO COMMUNICATE NEEDS RATHER THAN USING CALL LIGHT. VSS, SpO2> 92% RA, DENIES SOB. BP STABLE, PACED 90's, DENIES CP/PRESSURE. PT REPORTS PAIN AT ABDOMINAL INCISION SITE AND NG TUBE INSERTION SITE. MANAGED PER EMAR. ANGELA DRAIN REMAINS IN PLACE, EMPTIED FREQUENTLY. NG TUBE IN PLACE. PT REMAINS IN BILATERAL SOFT WRIST RESTRAINTS. KEARNEY CATHETER IN PLACE, PATENT, DRAINING TO GRAVITY. IRRIGATED KEARNEY CATHETER TO MAINTAIN PATENCY. PT WITH REDDENED, WARM AREA TO THE RIGHT OF INCISION, NOTED DURING PREVIOUS SHIFT. NO OTHER EVENTS, WILL REPORT TO ONCOMING RN.
--- NOTE | 2022-11-05 05:04 | NUR ---
SHIFT SUMMARY PT A&O TO SELF AND PLACE, YELLS OUT TO COMMUNICATE NEEDS RATHER THAN USING CALL LIGHT. VSS, SpO2> 92% RA, DENIES SOB. BP ELEVAYED, MANAGED PER EMAR, PACED 90's, DENIES CP/PRESSURE. PT REPORTS PAIN AT ABDOMINAL INCISION SITE AND NG TUBE INSERTION SITE. MANAGED PER EMAR. ANGELA DRAIN REMAINS IN PLACE, EMPTIED FREQUENTLY. NG TUBE IN PLACE. PT REMAINS IN BILATERAL SOFT WRIST RESTRAINTS. KEARNEY CATHETER IN PLACE, PATENT, DRAINING TO GRAVITY. IRRIGATED KEARNEY CATHETER TO MAINTAIN PATENCY. PT WITH REDDENED, WARM AREA TO THE RIGHT OF INCISION, NOTED DURING PREVIOUS SHIFT. NO OTHER EVENTS, WILL REPORT TO ONCOMING RN.
[2022-11-05 06:03] LABS: Albumin, Blood 1.6 g/dL (3.4-5.0); Anion Gap 5 mmol/L (6-16); Blood Urea Nitrogen 17 mg/dL (8-24); Bun/Creatinine Ratio 23.7 (12.0-20.0); CO2, Blood 29 mmol/L (21-32); Calcium, Blood 8.5 mg/dL (8.5-10.1); Chloride, Blood 103 mmol/L (98-108); Creatinine, Blood 0.72 mg/dL (0.60-1.20); Glomerular Filtration Rate 93 (60-); Glucose, Blood 230 mg/dL (70-99); Phosphorus, Blood 2.6 mg/dL (2.5-4.9); Potassium, Blood 3.7 mmol/L (3.5-5.5); Sodium, Blood 137 mmol/L (136-145)
--- NOTE | 2022-11-05 18:32 | NUR ---
PT SUMMARY: PT TRANSITIONED TO MEDICAL STATUS WITH TELE. PT REMAINED ALERT AND ORIENTED X3 STILL GETS CONFUSED BUT CAN HOLD A CONVERSATION, MULTIPLE ATTEMPTS OF GETTING OUT OF BED, HALLUCINATING PT KEEPS SAYING THERES ANOTHER LADY IN THE ROOM AND THAT HIS WALLET WAS ON THE FLOOR, PT WAS REDIRECTED AND WAS ABLE TO COMPREHEND. VITALS STABLE BP ELEVATED 150-160'S, CLONIDINE PATCH REMIANED IN PLACE, PT HAS BEEN ON ROOMAIR HAS SOME MOIST COUGH PT COUGHED UP WHITE YELLOWISH MUCUS SUCTION PRN, DENIES CHEST PAIN/PRESSURE. PT HAS PAIN TO ABD MOSTLY WHEN TOUCHED PT DENIES NEED FOR PAIN MEDICINE. SOFT WRIST RESTRAINT REMIANED IN PLACE, NGT WAS KEPT IN PLACE PER DR MALDONADO, ANGELA DRAIN HAD 100MLS DARK GREEN MUCUS DRAINAGE OUT DRESSINGS WERE CLEANED AND CHANGED FOR THE SHIFT. KEARNEY CATHETER DRAINING DARK YELLOW URINE WITH A LOT OF SEDIMENTS, CATHETER IRRIGATED TWICE FOR THE SHIFT. PT REFUSED BED BATH. MOUTH SWABS AT BEDSIDE FOR COMFORT, ORAL CARE PROVIDED. REPOSITIONED MULTIPLE TIMES TODAY PT KEEPS TRYING TO GET OUT OF BED. NO OTHER ISSUES AT THIS TIME, CALL LIGHTS IN REACH WILL REPORT TO ONCOMING SHIFT
--- NOTE | 2022-11-06 01:47 | NUR ---
PT PULLED NG AT APPROXIMATELY 2320, PT PULLED NG TUBE. PT ALSO PULLED TELE OFF, WHICH IS WHAT PROMPTED FLOAT RN TO GO INTO PT'S ROOM AND FOUND HIS NG TUBE IN HIS HAND. NARES IS INTACT, PT DENIES PAIN. THIS RN HAS BEEN THE PRIMARY NURSE FOR THIS PT 11/03/22 AND 11/04/22 NOC SHIFT AND TONIGHT, THE PT's NG TUBE HAS NOT HAD ANY OUTPUT DURING ANY OF THOSE SHIFTS. NOTIFIED WINDOW UNIT AIR CONDITIONING MECHANIC THAT PT PULLED NG TUBE AND DISCUSSED PLAN. IN REPORT FROM DAY SHIFT RN, THIS RN WAS TOLD THAT THE PLAN WAS TO POSSIBLY REMOVE NG TUBE DAY SHIFT 11/06/22. D/T THIS AND THERE NOT BEING ANY OUT PUT THE PAST FEW DAYS, THIS RN DID NOT REINSERT NG TUBE.
[2022-11-06 03:30] LABS: BASOPHILS ABSOLUTE AUTO 0.02 K/mm3 (0.00-0.23); BASOPHILS PERCENT AUTO 0 % (0-2); EOSINOPHILS ABSOLUTE AUTO 0.15 K/mm3 (0.00-0.68); EOSINOPHILS PERCENT AUTO 1 % (0-6); Hematocrit 22.2 % (37.0-53.0); Hemoglobin 7.2 g/dL (13.5-17.5); IMMATURE GRAN ABSOLUTE AUTO 0.11 K/mm3 (0.00-0.10); IMMATURE GRAN PERCENT AUTO 1 % (0-1); LYMPHOCYTES ABSOLUTE AUTO 0.68 K/mm3 (0.84-5.20); LYMPHOCYTES PERCENT AUTO 6 % (21-46); MONOCYTES ABSOLUTE AUTO 0.98 K/mm3 (0.16-1.47); MONOCYTES PERCENT AUTO 9 % (4-13); Mean Corpuscular HGB 29.9 pg (26.0-34.0); Mean Corpuscular HGB Conc 32.4 g/dL (31.5-36.5); Mean Corpuscular Volume 92 fL (80-100); Mean Platelet Volume 11.3 fL (9.1-12.4); NEUTROPHILS ABSOLUTE AUTO 9.62 K/mm3 (1.96-9.15); NEUTROPHILS PERCENT AUTO 83 % (41-73); Platelet Count 352 K/mm3 (150-400); RDW Standard Deviation 50.4 fL (35.1-46.3); Red Blood Cell Count 2.41 M/mm3 (4.30-5.90); White Blood Cell Count 11.56 K/mm3 (4.00-11.30)
[2022-11-06 03:46] LABS: Albumin, Blood 1.5 g/dL (3.4-5.0); Anion Gap 2 mmol/L (6-16); Blood Urea Nitrogen 17 mg/dL (8-24); Bun/Creatinine Ratio 22.6 (12.0-20.0); CO2, Blood 32 mmol/L (21-32); Calcium, Blood 7.9 mg/dL (8.5-10.1); Chloride, Blood 100 mmol/L (98-108); Creatinine, Blood 0.75 mg/dL (0.60-1.20); Glomerular Filtration Rate 92 (60-); Glucose, Blood 192 mg/dL (70-99); Phosphorus, Blood 2.2 mg/dL (2.5-4.9); Potassium, Blood 3.8 mmol/L (3.5-5.5); Sodium, Blood 134 mmol/L (136-145)
--- NOTE | 2022-11-06 04:42 | NUR ---
CALL TO DR. OVALLE AT APPROXIMATELY 0100, THIS RN NOTICED BLACK DOT ON TUBE OF ANGELA DRAIN APPROXIMATELY 3/4in OUTSIDE OF INSERTION SITE. NOTIFIED AND ASSESSED WITH FOURDRINIER OPERATOR, PLAN TO MONITOR OUTPUT AND SURROUNDING TISSUE. EMPTIED ANGELA DRAIN TO MONITOR OUTPUT ACCURATELY. AT APPROXIMATELY 0400 ANGELA DRAIN WITH NO NEW OUTPUT, THOUGH ANGELA BULB HAS REMAINED CROMPRESSED. SURROUNDING TISSUE IS MILDLY MORE FIRM, SLIGHTLY RED, WARM, AND TENDER. BOWEL SOUNDS ARE UNCHANGED FROM START OF SHIFT, VITAL SIGNS ARE STABLE. DISCUSSED ASSESSMENT WITH FOURDRINIER OPERATOR. NOTIFIED DR. OVALLE, SINCE ANGELA BULB IS REMAINING COMPRESSED, INSTRUCTIONS TO LEAVE IT BE AT THIS TIME AND TO ALLOW DR. MALDONADO TO ADDRESS ISSUE DURING DAY SHIFT.
--- NOTE | 2022-11-06 04:42 | NUR ---
CALL TO DR. OVALLE AT APPROXIMATELY 0100, THIS RN NOTICED BLACK DOT ON TUBE OF ANGELA DRAIN APPROXIMATELY 3/4in OUTSIDE OF INSERTION SITE. NOTIFIED AND ASSESSED WITH COUNSELOR CAMP, PLAN TO MONITOR OUTPUT AND SURROUNDING TISSUE. EMPTIED ANGELA DRAIN TO MONITOR OUTPUT ACCURATELY. AT APPROXIMATELY 0400 ANGELA DRAIN WITH NO NEW OUTPUT, THOUGH ANGELA BULB HAS REMAINED CROMPRESSED. SURROUNDING TISSUE IS MILDLY MORE FIRM, SLIGHTLY RED, WARM, AND TENDER. BOWEL SOUNDS ARE UNCHANGED FROM START OF SHIFT, VITAL SIGNS ARE STABLE. DISCUSSED ASSESSMENT WITH COUNSELOR CAMP. NOTIFIED DR. OVALLE, SINCE ANGELA BULB IS REMAINING COMPRESSED, INSTRUCTIONS TO LEAVE IT BE AT THIS TIME AND TO ALLOW DR. MALDONADO TO ADDRESS ISSUE DURING DAY SHIFT. ALSO MENTIONED THAT PT PULLED NG TUBE AND INFORMED DR. OVALLE THAT THERE WAS NO NEW OUTPUT OVER THE LAST THREE DAYS, NO ORDERS OR INSTRUCTION GIVEN AT THIS TIME.
--- NOTE | 2022-11-06 05:03 | NUR ---
SHIFT SUMMARY SEE PREVIOUS NOTES. PT A&Ox2-3, YELLS OUT TO COMMUNICATE NEEDS THOUGH USES CALL LIGHT AT TIMES. VSS, SpO2> 92% RA, DENIES SOB. BP STABLE, PACED 90's, DENIES CP/PRESSURE. PT REPORTS PAIN AT ABDOMINAL INCISION SITE AND TISSUE SURROUNDING ANGELA DRAIN SITE. MANAGED PAIN PER EMAR. PT REMAINS IN BILATERAL SOFT WRIST RESTRAINTS. KERANEY CATHETER IN PLACE, PATENT, DRAINING TO GRAVITY. IRRIGATED KEARNEY CATHETER TO MAINTAIN PATENCY. NO OTHER EVENTS, WILL REPORT TO ONCOMING RN.
--- NOTE | 2022-11-06 16:43 | NUR ---
PT SUMMARY: PT TRANSFERRED TO 344 REPORT GIVEN TO TYLER URBAN. RESTRAINTS WERE DISCONTINUED AT 1100A WHEN PT CAME BACK FROM CT SCAN OF ABD, PT DOESNT HAVE ANY MORE NGT AND HASNT BEEN PULLING ON LINES THAT MUCH AND WAS MORE REDIRECTIBLE. ABD CT SCAN SHOWS NEARLY RESOLVED PNEUMOPERITONEUM AND ANGELA DRAIN STILL IN PLACE AT THE DUODENUM. DR MALDONADO CALLED AND MADE AWARE OKAY TO GIVE PT SUPPOSITORY, ALSO THAT PT MAY HAVE TO WAIT UNTIL THE ANGELA DRAIN HAS LESS DRAINAGE BEFORE INTRODUCING ANY FOOD. PT HAS BEEN C/O OF ABD PAIN 05/11 MEDICATED TWICE WITH DILAUDID FOR THE SHIFT AND WAS EFFECTIVE. PT WAS A LITTLE DOWN THIS MORNING REFUSES SOME OF THE CARE, TRAINING SPECIALIST DARI CAME IN TO VISIT AND WAS GIVEN UPDATE REGARDING PT STATUS. PT RECEIVED A BEDBATH THIS MORNING REFUSED AT FIRST ATTEMPT. PT HAS BEEN RESTING IN BED MOST OF THE SHIFT COOPERATED WITH OT ONCE SAT ON THE SIDE OF THE BED AND DID SOME EXTREMITIES EXERCISES. PT HAS DEPENDENT EDEMA ON BUE HAS GONE DOWN AFTER RESTRAINTS WERE DC'D AND ELEVATING IT UP IN THE PILLOWS. PT ALSO HAS NEW OPEN PRESSURE SORE ON RIGHT BUTTOCK WHILE DOING BED BATH, MEPILEX PLACED PHOTOS IN CHART. VITALS HAS BEEN STABLE. NO OTHER ISSUES ENCOUNTERED ALL BELONGINGS SENT WITH THE PT
--- NOTE | 2022-11-07 01:56 | NUR ---
SHIFT SUMMARY NOC PT A/O 2-3. COMMUNICATES NEEDS BY YELLING OUT AND SOMETIMES USES CALL LIGHT. VSS. HR PACED IN 90'S. PT REPORTS PAIN AT ABD INCISION SITE AND PULLS AT ANGELA DRAIN SITE SO THERE IS REDNESS. PT PAIN HAS HAD PAIN MANAGED PER EMAR. PT HAS KEARNEY IN PLACE DRAINIG DARK YELLOW URINE TO GRAVITY. PT HAS POWER PICC IN JIE WITH CONTINUOS FEEDING @ 95 MLS/HR AND POWERGLIDE IN YE INFUSING ABX. PT IS NPO AND IS Q6H CBG CHECK PT HAD CBG OF 223 AT 0000 AND GIVEN 4 UNITS FAST ACTING FOR COVERAGE.PT DESATS AFTER TAKING PN RX SO O2 1L/NC PLACED WHEN GIVING IV PAIN RX FOR 30 MINUTES. PT IS CURRENTLY RESTING WITH BED ALARM ON, BED IN LOWEST POSITION, AND CALL LIGHT WITHIN REACH.
[2022-11-07 05:50] LABS: BASOPHILS ABSOLUTE AUTO 0.03 K/mm3 (0.00-0.23); BASOPHILS PERCENT AUTO 0 % (0-2); EOSINOPHILS ABSOLUTE AUTO 0.16 K/mm3 (0.00-0.68); EOSINOPHILS PERCENT AUTO 1 % (0-6); Hematocrit 21.6 % (37.0-53.0); IMMATURE GRAN ABSOLUTE AUTO 0.15 K/mm3 (0.00-0.10); IMMATURE GRAN PERCENT AUTO 1 % (0-1); LYMPHOCYTES PERCENT AUTO 5 % (21-46); MONOCYTES ABSOLUTE AUTO 0.92 K/mm3 (0.16-1.47); MONOCYTES PERCENT AUTO 8 % (4-13); Mean Corpuscular HGB 30.6 pg (26.0-34.0); Mean Corpuscular HGB Conc 32.4 g/dL (31.5-36.5); Mean Corpuscular Volume 94 fL (80-100); Mean Platelet Volume 11.8 fL (9.1-12.4); NEUTROPHILS ABSOLUTE AUTO 9.99 K/mm3 (1.96-9.15); NEUTROPHILS PERCENT AUTO 84 % (41-73); Platelet Count 377 K/mm3 (150-400); RDW Coefficient Variation 14.8 % (11.7-14.2); RDW Standard Deviation 51.9 fL (35.1-46.3); Red Blood Cell Count 2.29 M/mm3 (4.30-5.90); White Blood Cell Count 11.85 K/mm3 (4.00-11.30)
[2022-11-07 06:50] LABS: BASOPHILS ABSOLUTE AUTO 0.05 K/mm3 (0.00-0.23); BASOPHILS PERCENT AUTO 0 % (0-2); EOSINOPHILS ABSOLUTE AUTO 0.22 K/mm3 (0.00-0.68); EOSINOPHILS PERCENT AUTO 2 % (0-6); Hematocrit 22.6 % (37.0-53.0); Hemoglobin 7.2 g/dL (13.5-17.5); IMMATURE GRAN ABSOLUTE AUTO 0.14 K/mm3 (0.00-0.10); IMMATURE GRAN PERCENT AUTO 1 % (0-1); LYMPHOCYTES ABSOLUTE AUTO 0.72 K/mm3 (0.84-5.20); LYMPHOCYTES PERCENT AUTO 6 % (21-46); MONOCYTES ABSOLUTE AUTO 1.02 K/mm3 (0.16-1.47); MONOCYTES PERCENT AUTO 8 % (4-13); Mean Corpuscular HGB Conc 31.9 g/dL (31.5-36.5); Mean Corpuscular Volume 91 fL (80-100); Mean Platelet Volume 11.4 fL (9.1-12.4); NEUTROPHILS ABSOLUTE AUTO 10.74 K/mm3 (1.96-9.15); NEUTROPHILS PERCENT AUTO 83 % (41-73); Platelet Count 371 K/mm3 (150-400); RDW Coefficient Variation 14.6 % (11.7-14.2); RDW Standard Deviation 49.1 fL (35.1-46.3); Red Blood Cell Count 2.48 M/mm3 (4.30-5.90); White Blood Cell Count 12.89 K/mm3 (4.00-11.30)
[2022-11-07 07:07] LABS: Albumin, Blood 1.4 g/dL (3.4-5.0); Anion Gap 3 mmol/L (6-16); Blood Urea Nitrogen 15 mg/dL (8-24); CO2, Blood 29 mmol/L (21-32); Calcium, Blood 7.9 mg/dL (8.5-10.1); Chloride, Blood 99 mmol/L (98-108); Creatinine, Blood 0.79 mg/dL (0.60-1.20); Glomerular Filtration Rate 90 (60-); Glucose, Blood 192 mg/dL (70-99); Phosphorus, Blood 2.7 mg/dL (2.5-4.9); Sodium, Blood 131 mmol/L (136-145)
--- NOTE | 2022-11-07 17:00 | NUR ---
SHIFT SUMMARY NO ACUTE CHANGES DURING SHIFT. PT A&O X 2-3, INTERMITTENT CONFUSION, REDIRECTABLE. PT REMAINS NPO, ON TPN @ 95ML/HR. ANGELA DRAINING, DRESSING CDI. PT X2 ASSIST WITH GAIT BELT TO BEDSIDE COMMODE. PICC LINE AND POWERGLIDE DRESSINGS CHANGED TODAY. MEPILEX IN PLACE TO BUTTOCKS. CONTINUE IV ABX. WILL CONTINUE TO MONITOR CALL LIGHT WITHIN REACH.
--- NOTE | 2022-11-08 04:24 | NUR ---
SHIFT SUMMARY PATIENT HAD NO ACUTE CHANGES. AXOX 2 AND NPO. POWERGLIDE AND PICC LINE INTACT. IV ABX INFUSED. TPN INFUSING @ 95 mL/HR. CBG Q6 217 AND 229. ON TELEMETRY PACED 79. KEARNEY PATENT AND DRAINING TO GRAVITY. ANGELA DRAIN INTACT. VSS/AFEBRILE. REPORTED ABDOMEN PAIN X ONE AND IV DILAUDID 1 MG GIVEN PER EMAR. DENIES SOB AND N/V. CALL LIGHT IN REACH. BED IN LOWEST POSITION. WILL CONTINUE TO MONTIOR UNTIL DAY SHIFT NURSE ASSUMES CARE.
[2022-11-08 07:03] LABS: BASOPHILS ABSOLUTE AUTO 0.04 K/mm3 (0.00-0.23); BASOPHILS PERCENT AUTO 0 % (0-2); EOSINOPHILS ABSOLUTE AUTO 0.17 K/mm3 (0.00-0.68); EOSINOPHILS PERCENT AUTO 2 % (0-6); Hematocrit 21.2 % (37.0-53.0); Hemoglobin 6.8 g/dL (13.5-17.5); IMMATURE GRAN ABSOLUTE AUTO 0.17 K/mm3 (0.00-0.10); IMMATURE GRAN PERCENT AUTO 2 % (0-1); LYMPHOCYTES ABSOLUTE AUTO 0.58 K/mm3 (0.84-5.20); LYMPHOCYTES PERCENT AUTO 6 % (21-46); MONOCYTES ABSOLUTE AUTO 0.86 K/mm3 (0.16-1.47); MONOCYTES PERCENT AUTO 9 % (4-13); Mean Corpuscular HGB 29.2 pg (26.0-34.0); Mean Corpuscular HGB Conc 32.1 g/dL (31.5-36.5); Mean Corpuscular Volume 91 fL (80-100); Mean Platelet Volume 11.2 fL (9.1-12.4); NEUTROPHILS ABSOLUTE AUTO 8.32 K/mm3 (1.96-9.15); NEUTROPHILS PERCENT AUTO 82 % (41-73); Platelet Count 387 K/mm3 (150-400); RDW Coefficient Variation 14.6 % (11.7-14.2); RDW Standard Deviation 48.6 fL (35.1-46.3); Red Blood Cell Count 2.33 M/mm3 (4.30-5.90); White Blood Cell Count 10.14 K/mm3 (4.00-11.30)
[2022-11-08 07:20] LABS: Anion Gap 3 mmol/L (6-16); Blood Urea Nitrogen 15 mg/dL (8-24); Bun/Creatinine Ratio 20.5 (12.0-20.0); CO2, Blood 30 mmol/L (21-32); Calcium, Blood 7.9 mg/dL (8.5-10.1); Chloride, Blood 99 mmol/L (98-108); Creatinine, Blood 0.73 mg/dL (0.60-1.20); Glomerular Filtration Rate 93 (60-); Glucose, Blood 250 mg/dL (70-99); Potassium, Blood 3.8 mmol/L (3.5-5.5); Sodium, Blood 132 mmol/L (136-145); Triglycerides 153 mg/dL (30-160)
[2022-11-08 09:36] LABS: Percent Saturation 9.5 % (20.0-50.0)
--- NOTE | 2022-11-08 17:03 | NUR ---
SHIFT SUMMARY NO ACUTE CHANGES DURING SHIFT. PT ALERT AND ORIENTED, INTERMITTENT CONFUSION, CALLS APPROPRIATELY. PT REMAINS NPO. ANGELA DRAIN IN PLACE, KEARNEY DRAINING TO GRAVITY. TPN INFUSING @ 95ML/HR. XR UGI TOMORROW MORNING. CONTINUE TO MONITOR. CALL LIGHT WITHIN REACH.
--- NOTE | 2022-11-08 21:53 | NUR ---
AWAKE, PT NURSE REPORTED PT CALLING OUT, ANXIOUS, VOICING NEEDING TO VOID. BLADDER SCANNED. '0' CC RESULTS. KEARNEY DRAINING DIAMOND. DISCUSSED WITH PT, AT TIMES MAY FEEL NEEDS TO VOID, BUT MAY NOT NEED TO. STATED WOULD WAIT A WHILE, PT NURSE TO FOLLOW UP. CALL LIGHT IN REACH. AFFECT LESS ANXIOUS
[2022-11-09 05:48] LABS: BASOPHILS ABSOLUTE AUTO 0.05 K/mm3 (0.00-0.23); BASOPHILS PERCENT AUTO 1 % (0-2); EOSINOPHILS ABSOLUTE AUTO 0.17 K/mm3 (0.00-0.68); EOSINOPHILS PERCENT AUTO 2 % (0-6); Hematocrit 24.9 % (37.0-53.0); IMMATURE GRAN ABSOLUTE AUTO 0.18 K/mm3 (0.00-0.10); IMMATURE GRAN PERCENT AUTO 2 % (0-1); LYMPHOCYTES ABSOLUTE AUTO 0.67 K/mm3 (0.84-5.20); LYMPHOCYTES PERCENT AUTO 7 % (21-46); MONOCYTES ABSOLUTE AUTO 0.78 K/mm3 (0.16-1.47); MONOCYTES PERCENT AUTO 9 % (4-13); Mean Corpuscular HGB 28.9 pg (26.0-34.0); Mean Corpuscular HGB Conc 32.1 g/dL (31.5-36.5); Mean Corpuscular Volume 90 fL (80-100); Mean Platelet Volume 11.9 fL (9.1-12.4); NEUTROPHILS ABSOLUTE AUTO 7.23 K/mm3 (1.96-9.15); NEUTROPHILS PERCENT AUTO 80 % (41-73); Platelet Count 422 K/mm3 (150-400); RDW Coefficient Variation 14.8 % (11.7-14.2); RDW Standard Deviation 49.2 fL (35.1-46.3); Red Blood Cell Count 2.77 M/mm3 (4.30-5.90); White Blood Cell Count 9.08 K/mm3 (4.00-11.30)
[2022-11-09 06:17] LABS: Albumin, Blood 1.6 g/dL (3.4-5.0); Anion Gap 3 mmol/L (6-16); Blood Urea Nitrogen 15 mg/dL (8-24); Bun/Creatinine Ratio 20.8 (12.0-20.0); CO2, Blood 29 mmol/L (21-32); Chloride, Blood 98 mmol/L (98-108); Creatinine, Blood 0.72 mg/dL (0.60-1.20); Glomerular Filtration Rate 93 (60-); Glucose, Blood 246 mg/dL (70-99); Phosphorus, Blood 2.3 mg/dL (2.5-4.9); Potassium, Blood 3.7 mmol/L (3.5-5.5); Sodium, Blood 130 mmol/L (136-145)
--- NOTE | 2022-11-09 07:40 | NUR ---
MECHANICAL ENGINEERING LECTURER SUMMARY PT A/OX3 WITH EPISODES OF FORGETFULNESS. PT RESTING IN BED T/O THE NIGHT. PT WAKEFUL T/O MOST OF THE NIGHT. PT REMAINS NPO C CONT TPN INFUSING. PT HAD 3X INCONT BM OVER NIGHT WITH STOOLS APPEARING BLACK/TARRY. HGB LABS THIS AM 8.0; IMPROVED FROM PREVIOUS DAY. VITAL SIGNS REVIEWED/STABLE. PT CONT TO C/O PAIN IN ABD AND BACK; MEDS P/EMAR. MIDLINE INCISION W/BANDAGE CDI. ANGELA DRAINING ANAND FLUID. INCISION SITE AROUND DRAIN IS WEEPING SIMIAR COLOR DRAINAGE. PT MADE SEVERAL ATTEMPTS OOB T/O THE NIGHT STATING HE HAD TO VOID; REORIENTED PT T/URINE CATH AND PROVIED PT EDUCATION. SEE CHARGE NURSE NOTE. BLADDER SCAN DONE SHOWING 0MLS RESIDUAL. PT CAN BE IMPULSIVE; SOMETIMES USING CALL LIGHT OR CALLING OUT FOR HELP. BED ALARM SET. BED LOCKED/LOW. CALL LIGHT ACCESSIBLE.
--- NOTE | 2022-11-09 10:17 | NUR ---
DISCUSSION WITH DR. SIMON: DISCUSSED OVERNIGHT FINDINGS OF DARK, TARRY STOOLS WITH DR. SIMON. DISCUSSED CURRENT MEDICATIONS AND MEDICATIONS. NO NEW ORDERS AT THIS TIME.
[2022-11-09 14:29] LABS: Hematocrit 24.4 % (37.0-53.0)
--- NOTE | 2022-11-09 17:24 | NUR ---
END OF SHIFT SUMMARY: PATIENT REPORTED HIGH LEVELS OF PAIN AND DISCOMFORT DURING THE BEGINNING OF THE SHIFT. INTEGRATED MARKETING SPECIALIST REPORTED THAT THE PATIENT HAD NOT SLEPT AND THAT HE REPORTED URINARY DISCOMFORT AND URGES. TODAY IT WAS DISCOVERED THAT HE HAD A BLOCKAGE FROM SEDIMENT. PATIENT EXPERIENCED GREAT RELIEF ONCE THIS WAS CORRECTED. PATIENT WAS ABLE TO SLEEP ONCE HIS BLADDER DRAINED. HE SLEPT THE REST OF THE AFTERNOON. PATIENT HAS ANAND CLOUDY DRAINAGE FROM THE ANGELA DRAIN. PATIENT HAS ANAND CLOUDY DRAINAGE FROM AROUND THE ANGELA DRAIN. ABDOMEN IS MILDLY FIRM AND TENDER. PATIENT REPORTS THIS HAS BEEN NORMAL SINCE THE SURGERY. PATIENT REPORTED NAUSEA THIS MORNING. ALLEVIATED WITH PRNS. DARK SMEARS DURING BED BATH, NO FORMED BOWEL MOVEMENTS.
--- NOTE | 2022-11-09 18:33 | NUR ---
INCREASED CONFUSION: THIS EVENING, PATIENT DISPLAYED INCREASED CONFUSION. THIS MORNING, PATIENT ABLE TO RELAY TO RN THE REASON FOR HIS ADMISSION. THIS EVENING, PATIENT UNABLE TO DO SO. VITALS ARE STABLE. PATIENT WAKES EASILY TO VERBAL STIMULI. PATIENT ABLE TO JOKE WITH STAFF. DISCUSSED WITH DR. CLIFFORD. NEW ORDERS ENTERED. WILL CONTINUE TO MONITOR.
[2022-11-10] MEDS ORDERED: GABA300 PO (00:16)
[2022-11-10] MEDS ORDERED: OXYC5 PO (00:18)
--- NOTE | 2022-11-10 04:34 | NUR ---
CASING FLUID TENDER SUMMARY--PT LETHARGIC T/O SHIFT PT SLEEPING HEAVY T/O SHIFT. AROUSABLE BUT DROWSY AND RETURNS TO SLEEP EASILY. DID NOT GIVE 2100 ORAL MED DUE TO LETHERGY. PT REQ PAIN MEDS 1X DURING SHIFT. CONT PULSE OX ON AND NOTED DESATS T/HIGH 80'S DURING SLEEP AFTER PAIN MEDS; 2L NC APPLIED AND REMOVED AFTER 2 HOURS. NO MORE DESATS NOTED. MONITORED KEARNEY T/O THE NIGHT; OUTPUT GOOD AND PATIENT DENIED FEELING OF FULL BLADDER. PT ABD CONT T/BE TENDER. SCANT OUTPUT IN DRAIN THIS SHIFT APPEARING SAME IN COLOR FROM DAY SHIFT--ANAND/BOWN. DRAINAGE ON THE DRAIN DRESSING SAME IN COLOR. MIDLINE INCISION DRESSING CDI. NO BOWEL MOVEMENT THIS SHIFT.
[2022-11-10 07:32] LABS: BASOPHILS ABSOLUTE AUTO 0.04 K/mm3 (0.00-0.23); BASOPHILS PERCENT AUTO 1 % (0-2); EOSINOPHILS ABSOLUTE AUTO 0.16 K/mm3 (0.00-0.68); EOSINOPHILS PERCENT AUTO 2 % (0-6); Hematocrit 23.4 % (37.0-53.0); Hemoglobin 7.3 g/dL (13.5-17.5); IMMATURE GRAN ABSOLUTE AUTO 0.11 K/mm3 (0.00-0.10); IMMATURE GRAN PERCENT AUTO 2 % (0-1); LYMPHOCYTES ABSOLUTE AUTO 0.61 K/mm3 (0.84-5.20); LYMPHOCYTES PERCENT AUTO 8 % (21-46); MONOCYTES ABSOLUTE AUTO 0.72 K/mm3 (0.16-1.47); MONOCYTES PERCENT AUTO 10 % (4-13); Mean Corpuscular HGB 30.2 pg (26.0-34.0); Mean Corpuscular HGB Conc 31.2 g/dL (31.5-36.5); Mean Platelet Volume 11.8 fL (9.1-12.4); NEUTROPHILS ABSOLUTE AUTO 5.71 K/mm3 (1.96-9.15); NEUTROPHILS PERCENT AUTO 78 % (41-73); Platelet Count 445 K/mm3 (150-400); RDW Coefficient Variation 15.1 % (11.7-14.2); RDW Standard Deviation 53.1 fL (35.1-46.3); Red Blood Cell Count 2.42 M/mm3 (4.30-5.90); White Blood Cell Count 7.35 K/mm3 (4.00-11.30)
[2022-11-10 07:42] LABS: Mean Corpuscular Volume 97 fL (80-100)
[2022-11-10 08:05] LABS: Albumin, Blood 1.5 g/dL (3.4-5.0); Anion Gap 0 mmol/L (6-16); Blood Urea Nitrogen 14 mg/dL (8-24); CO2, Blood 32 mmol/L (21-32); Calcium, Blood 8.1 mg/dL (8.5-10.1); Chloride, Blood 99 mmol/L (98-108); Creatinine, Blood 0.78 mg/dL (0.60-1.20); Glomerular Filtration Rate 91 (60-); Glucose, Blood 243 mg/dL (70-99); Phosphorus, Blood 2.7 mg/dL (2.5-4.9); Potassium, Blood 4.1 mmol/L (3.5-5.5); Sodium, Blood 131 mmol/L (136-145)
[2022-11-10 14:34] LABS: Hematocrit 22.9 % (37.0-53.0); Hemoglobin 7.2 g/dL (13.5-17.5)
--- NOTE | 2022-11-10 17:33 | NUR ---
SHIFT SUMMARY PT A&OX3 AND COOPERATIVE. IRRITABLE AT TIMES. NO ACUTE CHANGES. PT SLEPT MOST OF DAY BUT WAS EASY TO WAKE. PT C/O PAIN IN THE MORNING AND MEDICATED PER EMAR. Hgb WAS 7.[address] DIAZ NOTIFIED DURING HER MORNING ROUND. PT DESATS AT TIMES DURING SLEEP. SATS COME BACK UP QUICKLY WITH WAKING PT OR PLACING 1L OXYGEN ON PT. BED IN LOWST POSITION AND CALL LIGHT IN REACH.
--- NOTE | 2022-11-11 04:23 | NUR ---
TRIM ATTACHER SUMMARY A/OX2-3; MORE ALERT T/O THE NIGHT DURING INTERACTIONS THAN PREVIOUS NIGHT. PT MOOD IS LIABLE; SOMETIMES PLEASANT AND JOKING WHILE OTHER TIMES AGITATED AND SAYING INNAPPROPRIATE THINGS; HOWEVER PT REMAINS COOPERATIVE. TPN CONT T/INFUSE. PT NPO. Q6 BS CHECKED W/COVERAGE. ANGELA DRAIN SCANT LIGHT BLROWN FLUID. ANGELA DRAIN DRESSING CHANGED--DRAIN INCICISON RED, SWOLLEN, C PURULENT DRAINAGE. ABD TENDER AND PT CONT T/REPORT 10/10 PAIN; MED P/EMAR. KEARNEY IN PLACE AND DRAINING TO GRAVITY. PT DENIES SENSATION OF FULL BLADDER OR NEEDING TO VOID. PT ON ROOM AIR AND ON CONT PULSE OX. PT HAS LETHARGIC PERIODS ESPECIALLY AFTER PAIN MED WHEN O2 SATS DROP TO 80'S; 2L O2 NC TO MAINTAIN SATS DURING THESE TIMES.
[2022-11-11 06:07] LABS: BASOPHILS ABSOLUTE AUTO 0.04 K/mm3 (0.00-0.23); BASOPHILS PERCENT AUTO 1 % (0-2); EOSINOPHILS ABSOLUTE AUTO 0.26 K/mm3 (0.00-0.68); EOSINOPHILS PERCENT AUTO 4 % (0-6); Hematocrit 23.6 % (37.0-53.0); Hemoglobin 7.2 g/dL (13.5-17.5); IMMATURE GRAN ABSOLUTE AUTO 0.15 K/mm3 (0.00-0.10); IMMATURE GRAN PERCENT AUTO 2 % (0-1); LYMPHOCYTES ABSOLUTE AUTO 0.89 K/mm3 (0.84-5.20); LYMPHOCYTES PERCENT AUTO 12 % (21-46); MONOCYTES ABSOLUTE AUTO 0.74 K/mm3 (0.16-1.47); MONOCYTES PERCENT AUTO 10 % (4-13); Mean Corpuscular HGB 28.3 pg (26.0-34.0); Mean Corpuscular HGB Conc 30.5 g/dL (31.5-36.5); Mean Corpuscular Volume 93 fL (80-100); Mean Platelet Volume 11.7 fL (9.1-12.4); NEUTROPHILS ABSOLUTE AUTO 5.31 K/mm3 (1.96-9.15); NEUTROPHILS PERCENT AUTO 72 % (41-73); Platelet Count 436 K/mm3 (150-400); RDW Coefficient Variation 14.9 % (11.7-14.2); Red Blood Cell Count 2.54 M/mm3 (4.30-5.90); White Blood Cell Count 7.39 K/mm3 (4.00-11.30)
[2022-11-11 06:31] LABS: Albumin, Blood 1.6 g/dL (3.4-5.0); Anion Gap 2 mmol/L (6-16); Blood Urea Nitrogen 16 mg/dL (8-24); Bun/Creatinine Ratio 20.1 (12.0-20.0); CO2, Blood 32 mmol/L (21-32); Calcium, Blood 8.3 mg/dL (8.5-10.1); Chloride, Blood 97 mmol/L (98-108); Glomerular Filtration Rate 90 (60-); Glucose, Blood 189 mg/dL (70-99); Potassium, Blood 4.1 mmol/L (3.5-5.5); Sodium, Blood 131 mmol/L (136-145)
--- NOTE | 2022-11-11 17:59 | NUR ---
1530 PT C/O PAIN, GAVE 1/2 MG DILAUDID, ASH URBAN STATES HE DROPS SATS WHEN GIVE ALL 1 MG. HE DID WELL, AND DID NOT DROP. PAIN DID IMPROVE, BUT STATES NOT RESOLVED BY 1640 1640 ADMIN SECOND 1/2 MG DILAUDID. SATS MAINTAINING AT THIS TIME. 1700 PT STATES PAIN LEVELING OUT. SATS MAINTAINING AT 95 AT THIS TIME.
--- NOTE | 2022-11-11 18:05 | NUR ---
PT QUITE IRRITABLE AND DISAGREEABLE THIS AM. REFUSED PT AND OT THIS DAY. I SAT DOWN AND TALKED WITH HIM FOR A WHILE THIS AFT. HE STATES HE WANTS TO GET TO HOME [place]. EXPLAINED HE NEEDS TO WORK WITH PT AND OT TO GET STRENGTH BACK. [place] HERE TO TALK WITH HIM. DISCUSSED WITH HER LACK OF MOTIVATION TO WORK WITH PT/OT. SHE WILL DISCUSS FURTHER WITH HIM TO ASSIST HIM TO GET HOME. ANGELA DRAINED THIS FARIDA. 5CC PURULANT DRAIN. NO NEW CONCERNS NOTED. BED IN LOW POSITION, CALL LITE IN REACH, BED ALARM ON FOR SAFETY
[2022-11-12 05:50] LABS: BASOPHILS ABSOLUTE AUTO 0.05 K/mm3 (0.00-0.23); BASOPHILS PERCENT AUTO 1 % (0-2); EOSINOPHILS ABSOLUTE AUTO 0.24 K/mm3 (0.00-0.68); EOSINOPHILS PERCENT AUTO 3 % (0-6); Hematocrit 25.5 % (37.0-53.0); IMMATURE GRAN ABSOLUTE AUTO 0.14 K/mm3 (0.00-0.10); IMMATURE GRAN PERCENT AUTO 2 % (0-1); LYMPHOCYTES ABSOLUTE AUTO 0.94 K/mm3 (0.84-5.20); LYMPHOCYTES PERCENT AUTO 10 % (21-46); MONOCYTES ABSOLUTE AUTO 0.79 K/mm3 (0.16-1.47); MONOCYTES PERCENT AUTO 9 % (4-13); Mean Corpuscular HGB 28.6 pg (26.0-34.0); Mean Corpuscular HGB Conc 31.4 g/dL (31.5-36.5); Mean Corpuscular Volume 91 fL (80-100); Mean Platelet Volume 11.6 fL (9.1-12.4); NEUTROPHILS ABSOLUTE AUTO 6.85 K/mm3 (1.96-9.15); NEUTROPHILS PERCENT AUTO 76 % (41-73); Platelet Count 465 K/mm3 (150-400); RDW Coefficient Variation 14.7 % (11.7-14.2); RDW Standard Deviation 49.3 fL (35.1-46.3); White Blood Cell Count 9.01 K/mm3 (4.00-11.30)
[2022-11-12 06:20] LABS: Albumin, Blood 1.8 g/dL (3.4-5.0); Anion Gap 4 mmol/L (6-16); Blood Urea Nitrogen 16 mg/dL (8-24); CO2, Blood 31 mmol/L (21-32); Calcium, Blood 8.2 mg/dL (8.5-10.1); Chloride, Blood 97 mmol/L (98-108); Creatinine, Blood 0.84 mg/dL (0.60-1.20); Glomerular Filtration Rate 89 (60-); Glucose, Blood 231 mg/dL (70-99); Phosphorus, Blood 3.2 mg/dL (2.5-4.9); Sodium, Blood 132 mmol/L (136-145)
--- NOTE | 2022-11-12 11:57 | NUR ---
WOUND CARE MODERATE AMOUNT OF YELLOW/ANAND THICK DRAINAGE NOTED FROM AROUND THE ANGELA DRAIN. SKIN CLEANED WITH WOUND EMPLOYMENT SUPERVISOR, CLEAN SPLIT SPONGE PLACED. NO ODOR. ANGELA DRAIN WITH SCANT TANNISH FLUID NOTED IN TUBING. ANGELA SECURED TO SECUREMENT DEVICE ON ABD. CONTIUE POC.
--- NOTE | 2022-11-12 12:13 | NUR ---
NOTE PT DECLINES CARE AND DRINKING. TALKED WITH DIETARY ABOUT STOPPING THE tpn AND SEEING IF HE GETS HUNGRY. dIETARY WILL F/U WITH MD TODAY. TURNING, DRESSING CHANGES, ORAL INTAKE, WARM BLANKETS ALL DECLINED. TRY TO TALK/VISIT AND HE TURNS HIS HEAD AWAY AND CLOSES HIS EYES. THE ONLY THING BESIDES, "NO" IS "CAN I HAVE BOOZE." MEDICATED FOR PAIN WITH DILAUDID 2MG IV X1. DRESSING CHANGE DONE. SEE NOTE. HE HAD VISITORS THAT HE IGNORED. HE LOOKED AT THEM BUT DIDN'T ENGAGE. THEY WOULD TRY AND VISIT HE WOULD TURN HIS HEAD AWAY AND CLOSE HIS EYES. CONTINUE POC.
--- NOTE | 2022-11-12 17:07 | NUR ---
EVENING NOTE PT RESTING INTERMITTANLY. HE DID EAT A JELLO FOR LUNCH. TPN HAS BEEN PUT ON HOLD TO SEE IF PT WILL GET HUNGRY. CAIO PATENT-DRAINING YELLOW, DIAMOND. ANGELA DRAIN WITH NO VOLUME OUT. DRESSING TO ABD CHANGED X1 SEE NOTE. MEDICATED FOR PAIN X2. PT WAKES EASILY AFTER DILAUDID. CONTINUE POC.
--- NOTE | 2022-11-13 04:53 | NUR ---
PATIENT CONFUSED, COMPLAINED OF PAIN CONTINUOUSLY, RECEIVED ORDERS TO TAKE PAIN MEDICATION TO Q4 VS Q6 AND THAT SEEMED TO HELP, PATIENT HAD A COPIOUS AMOUNT OF BLACK TARRY STOOL, PATIENT RESTED WELL AFTER BM, DRAIN SITE HAS MODERATE AMOUNT OF SEROUS YELLOW/BROWN/ANAND FLUID DRAINING, MINIMAL AMOUNT OF DRAINAGE IN ANGELA DRAIN
[2022-11-13 06:13] LABS: BASOPHILS ABSOLUTE AUTO 0.04 K/mm3 (0.00-0.23); BASOPHILS PERCENT AUTO 1 % (0-2); EOSINOPHILS ABSOLUTE AUTO 0.28 K/mm3 (0.00-0.68); EOSINOPHILS PERCENT AUTO 4 % (0-6); Hematocrit 26.2 % (37.0-53.0); Hemoglobin 8.3 g/dL (13.5-17.5); IMMATURE GRAN ABSOLUTE AUTO 0.13 K/mm3 (0.00-0.10); IMMATURE GRAN PERCENT AUTO 2 % (0-1); LYMPHOCYTES ABSOLUTE AUTO 1.05 K/mm3 (0.84-5.20); LYMPHOCYTES PERCENT AUTO 14 % (21-46); MONOCYTES ABSOLUTE AUTO 0.72 K/mm3 (0.16-1.47); MONOCYTES PERCENT AUTO 10 % (4-13); Mean Corpuscular HGB 28.6 pg (26.0-34.0); Mean Corpuscular HGB Conc 31.7 g/dL (31.5-36.5); Mean Corpuscular Volume 90 fL (80-100); Mean Platelet Volume 11.4 fL (9.1-12.4); NEUTROPHILS ABSOLUTE AUTO 5.34 K/mm3 (1.96-9.15); NEUTROPHILS PERCENT AUTO 71 % (41-73); Platelet Count 454 K/mm3 (150-400); RDW Coefficient Variation 14.8 % (11.7-14.2); RDW Standard Deviation 48.9 fL (35.1-46.3); White Blood Cell Count 7.56 K/mm3 (4.00-11.30)
[2022-11-13 06:41] LABS: Albumin, Blood 1.9 g/dL (3.4-5.0); Anion Gap 5 mmol/L (6-16); Blood Urea Nitrogen 14 mg/dL (8-24); Bun/Creatinine Ratio 16.9 (12.0-20.0); CO2, Blood 29 mmol/L (21-32); Calcium, Blood 8.3 mg/dL (8.5-10.1); Chloride, Blood 100 mmol/L (98-108); Creatinine, Blood 0.83 mg/dL (0.60-1.20); Glomerular Filtration Rate 89 (60-); Glucose, Blood 236 mg/dL (70-99); Potassium, Blood 3.9 mmol/L (3.5-5.5); Sodium, Blood 134 mmol/L (136-145)
--- NOTE | 2022-11-13 17:42 | NUR ---
PATIENT SLEPT MOST OF THIS SHIFT. ABLE TO GET PATIENT UP TO CHAIR FOR A FEW HOURS THIS AM WITH A 2 PERSON ASSIST AND A FWW. PATIENT BECAME VERY PAINFUL AND REPORTED 10/10 PAIN TO LOWER BACK. TYLENOL AND DILAUDID USED TO TREAT. PATIENT UNABLE TO TRANSFER BACK TO BED AND A SIT TO STAND LIFT WAS USED. DRESSINGS CHANGED TO ANGELA DRAIN AND REDNESS NOTED SURROUNDING SITE. ANGELA DRAINING SMALL AMOUNT OF PURULENT OUTPUT. PATIENT HAD ONE SMALL BLACK TARRY STOOL TODAY. MINIMAL PO INTAKE, TRANSITIONED TO FULL LIWUID DIET. DENIES ANY NAUSEA. KEARNEY TO GRAVITY WITH ADEQUATE U/O. PATIENT MORE AWAKE THE DAY WENT ON AND MORE TALKATIVE AND READING A BOOK. CALM AND COOPERATIVE WITH CARE, CALLS APPROPRIATELY FOR ASSISTANCE.
[2022-11-14 06:48] LABS: BASOPHILS ABSOLUTE AUTO 0.03 K/mm3 (0.00-0.23); BASOPHILS PERCENT AUTO 0 % (0-2); EOSINOPHILS ABSOLUTE AUTO 0.25 K/mm3 (0.00-0.68); EOSINOPHILS PERCENT AUTO 3 % (0-6); Hematocrit 26.7 % (37.0-53.0); Hemoglobin 8.4 g/dL (13.5-17.5); IMMATURE GRAN ABSOLUTE AUTO 0.12 K/mm3 (0.00-0.10); IMMATURE GRAN PERCENT AUTO 1 % (0-1); LYMPHOCYTES ABSOLUTE AUTO 1.14 K/mm3 (0.84-5.20); LYMPHOCYTES PERCENT AUTO 13 % (21-46); MONOCYTES PERCENT AUTO 6 % (4-13); Mean Corpuscular HGB 28.7 pg (26.0-34.0); Mean Corpuscular HGB Conc 31.5 g/dL (31.5-36.5); Mean Corpuscular Volume 91 fL (80-100); Mean Platelet Volume 10.9 fL (9.1-12.4); NEUTROPHILS ABSOLUTE AUTO 6.52 K/mm3 (1.96-9.15); NEUTROPHILS PERCENT AUTO 76 % (41-73); Platelet Count 460 K/mm3 (150-400); RDW Coefficient Variation 14.9 % (11.7-14.2); RDW Standard Deviation 49.7 fL (35.1-46.3); Red Blood Cell Count 2.93 M/mm3 (4.30-5.90); White Blood Cell Count 8.56 K/mm3 (4.00-11.30)
[2022-11-14 07:06] LABS: Albumin, Blood 1.9 g/dL (3.4-5.0); Anion Gap 3 mmol/L (6-16); Blood Urea Nitrogen 15 mg/dL (8-24); Bun/Creatinine Ratio 18.1 (12.0-20.0); CO2, Blood 31 mmol/L (21-32); Calcium, Blood 8.1 mg/dL (8.5-10.1); Chloride, Blood 101 mmol/L (98-108); Creatinine, Blood 0.83 mg/dL (0.60-1.20); Glomerular Filtration Rate 89 (60-); Glucose, Blood 109 mg/dL (70-99); Phosphorus, Blood 2.8 mg/dL (2.5-4.9); Potassium, Blood 3.6 mmol/L (3.5-5.5); Sodium, Blood 135 mmol/L (136-145)
--- NOTE | 2022-11-14 17:26 | NUR ---
PT CONTINUES TO SPEND THE MAJORITY OF TIME IN BED, AND IS REFUSING TO WORK WITH THERAPY, AND REFUSING TO PARTICIPATE IN ANY CARE. CHEMISTRY TECHNICIAN REPORTS IT'S TIME TO BEGIN WORKING ON DISHCARGE PLANNING. PALLIATIVE CARE WILL REMAIN INVOLVED.
--- NOTE | 2022-11-14 18:46 | NUR ---
PATIENT A/OX3, CONTINUES TO HAVE INTERMITTENT CONFUSION. VERY WITHDRAWN AND ANGRY TODAY. UNWILLING TO GET OOB OR WORK WITH PT. TRANSITIONED TO ADA DIET, DID EAT SOME OF HIS DINNER OWTHERWISE VERY LITTLE PO INTAKE TODAY. DR MALDONADO IN TODAY AND REMOVED ANGELA DRAIN, STERISTRIPS APPLIED. MODERATE AMOUNT OF DRAINAGE FROM SITE, COVERED WITH MEPLIEX DRESSING. SKIN SURROUNDING ANGELA SITE RED. CHAY TO MIDLINE INCISION REMOVED AND STERI-STRIPS PLACED PER DR MALDONADO'S ORDER. STEVEN AREA AND BUTTOCKS EXCORIATED, POWDER APPLED AND A MEPILEX PLACED TO BUTTOCKS. PICTURES TAKEN AND PLACED ON CHART. PICC LINE TO JIE [place]END.
--- NOTE | 2022-11-15 05:43 | NUR ---
VSS, AOX3, IRRITABLE WITH TURNS AND STEVEN CARE, MOD ASSIST WITH TURNS IN BED POOR APPETITE, CONTINUE TO ENCOURAGE PO INTAKE. PICC LINE FLUSHES AND DRAWS FROM BLUE LINE, RED LINE DOES NOT DRAW. ABD DRESSINGS CDI. PAIN WITH MOVEMENT. BM IS BLACK, MONITORING H&H, MD AWARE PER REPORT.
[2022-11-15 05:47] LABS: BASOPHILS ABSOLUTE AUTO 0.03 K/mm3 (0.00-0.23); BASOPHILS PERCENT AUTO 0 % (0-2); EOSINOPHILS ABSOLUTE AUTO 0.16 K/mm3 (0.00-0.68); EOSINOPHILS PERCENT AUTO 2 % (0-6); Hematocrit 27.1 % (37.0-53.0); Hemoglobin 8.4 g/dL (13.5-17.5); IMMATURE GRAN ABSOLUTE AUTO 0.08 K/mm3 (0.00-0.10); IMMATURE GRAN PERCENT AUTO 1 % (0-1); LYMPHOCYTES PERCENT AUTO 18 % (21-46); MONOCYTES ABSOLUTE AUTO 0.74 K/mm3 (0.16-1.47); MONOCYTES PERCENT AUTO 9 % (4-13); Mean Corpuscular HGB 27.9 pg (26.0-34.0); Mean Corpuscular Volume 90 fL (80-100); Mean Platelet Volume 10.8 fL (9.1-12.4); NEUTROPHILS ABSOLUTE AUTO 6.07 K/mm3 (1.96-9.15); NEUTROPHILS PERCENT AUTO 70 % (41-73); Platelet Count 464 K/mm3 (150-400); RDW Coefficient Variation 14.8 % (11.7-14.2); RDW Standard Deviation 48.6 fL (35.1-46.3); Red Blood Cell Count 3.01 M/mm3 (4.30-5.90); White Blood Cell Count 8.68 K/mm3 (4.00-11.30)
[2022-11-15 06:25] LABS: Albumin, Blood 1.9 g/dL (3.4-5.0); Anion Gap 5 mmol/L (6-16); Blood Urea Nitrogen 12 mg/dL (8-24); Bun/Creatinine Ratio 14.7 (12.0-20.0); CO2, Blood 29 mmol/L (21-32); Calcium, Blood 8.1 mg/dL (8.5-10.1); Chloride, Blood 99 mmol/L (98-108); Creatinine, Blood 0.82 mg/dL (0.60-1.20); Glomerular Filtration Rate 89 (60-); Glucose, Blood 132 mg/dL (70-99); Phosphorus, Blood 2.4 mg/dL (2.5-4.9); Potassium, Blood 3.1 mmol/L (3.5-5.5); Sodium, Blood 133 mmol/L (136-145)
--- NOTE | 2022-11-15 16:07 | NUR ---
SHIFT SUMMARY: PT A&O X3, CONFUSED WITH TIME AND SITUATION. PT SLEPT MOST OF THE SHIFT, NOT WANTING TO EAT MUCH OF ANY MEAL. PT ABLE TO DRINK HEALTH SHAKE 50% OF DRINK. PT REPOSTIONED FREQUENTLY AND HAS MODERATE BACK PAIN, PT MEDICATED PER EMAR PROTOCOL. PT SURGICAL SITE CLEAN AND DRY, NO INFLAMMATION. J-P REMOVAL SITE DRAINING MILD PURULENT DISCAHRGE. PT HAD SANDEEP FROM THE [facility] OFFICE VISIT. PT TOOK MEDICATION WHOLE WITH WATER. PT IN BED WITH CALL LIGHT WITHIN REACH.
--- NOTE | 2022-11-16 06:32 | NUR ---
PT REPORTS TRAMADOL Q6 PRN IS NOT EFFECTIVE FOR PAIN. REFUSES TYLENOL. MINIMAL OUTPUT FROM ANGELA DRAIN SITE. DRESSINGS CHANGED PRN FOR DRAINAGE. TRANSFERRED TO BSC FOR BM WITH FWW. SEEMS MORE ORIENTED TONIGHT THAN LAST NIGHT.
--- NOTE | 2022-11-16 08:00 | NUR ---
pt laying in bed with eyes closed, wakes easily, is cooperative with care, follows commands well, reports low back pain, is pretty sleepy, was medicated recently, lungs are clear t/o, on r/a, no cough noted, hrr, pacer noted, no edema noted, picc line to antonio site is clear and pantent in red port, was able to draw, szymanski cath draining clear yellow urine, skin has mid line incision to abd with dressing where sindy drain was, as it is leaking a bit still, steri strips in place, cirstian area is excoriated, monse, one person assist, anshu, call light in reach.
[2022-11-16 08:31] LABS: BASOPHILS ABSOLUTE AUTO 0.05 K/mm3 (0.00-0.23); BASOPHILS PERCENT AUTO 0 % (0-2); EOSINOPHILS PERCENT AUTO 1 % (0-6); Hematocrit 27.9 % (37.0-53.0); Hemoglobin 9.1 g/dL (13.5-17.5); IMMATURE GRAN PERCENT AUTO 1 % (0-1); LYMPHOCYTES ABSOLUTE AUTO 1.28 K/mm3 (0.84-5.20); LYMPHOCYTES PERCENT AUTO 8 % (21-46); MONOCYTES ABSOLUTE AUTO 0.86 K/mm3 (0.16-1.47); MONOCYTES PERCENT AUTO 6 % (4-13); Mean Corpuscular HGB 29.2 pg (26.0-34.0); Mean Corpuscular HGB Conc 32.6 g/dL (31.5-36.5); Mean Corpuscular Volume 89 fL (80-100); Mean Platelet Volume 10.8 fL (9.1-12.4); NEUTROPHILS ABSOLUTE AUTO 12.87 K/mm3 (1.96-9.15); NEUTROPHILS PERCENT AUTO 84 % (41-73); Platelet Count 441 K/mm3 (150-400); RDW Coefficient Variation 14.9 % (11.7-14.2); RDW Standard Deviation 47.8 fL (35.1-46.3); Red Blood Cell Count 3.12 M/mm3 (4.30-5.90); White Blood Cell Count 15.36 K/mm3 (4.00-11.30)
[2022-11-16 08:43] LABS: Anion Gap 5 mmol/L (6-16); Blood Urea Nitrogen 14 mg/dL (8-24); Bun/Creatinine Ratio 18.9 (12.0-20.0); CO2, Blood 28 mmol/L (21-32); Calcium, Blood 7.9 mg/dL (8.5-10.1); Chloride, Blood 100 mmol/L (98-108); Creatinine, Blood 0.74 mg/dL (0.60-1.20); Glomerular Filtration Rate 92 (60-); Glucose, Blood 158 mg/dL (70-99); Phosphorus, Blood 1.7 mg/dL (2.5-4.9); Potassium, Blood 3.1 mmol/L (3.5-5.5); Sodium, Blood 133 mmol/L (136-145)
--- NOTE | 2022-11-16 18:00 | NUR ---
Pt had an uneventful day, is painful in his abd, medicated as ordered, no further changes this shift. call light in reach.
--- NOTE | 2022-11-17 03:54 | NUR ---
SHIFT MOSTLY UNREMARKABLE. PT COMPLAINS OF PAIN OFTEN BUT DOES NOT DISPLAY PHYSICAL SIGNS OF PAIN. MEDICATED PER EMAR. PT SEEMS TO FEEL BETTER FOR SEVERAL HOURS AFTER ADMINISTRATION BUT COMPLAINS OF PAIN WELL BEFORE NEXT DOSE IS DUE. FORGETFUL TO WHEN LAST DOSE WAS ADMINISTERED. SHIFT OTHERWISE UNREMARKABLE. MEPILEX DRY AND INTACT. KEARNEY DRAINING WELL. VITALS WNL. CALL LIGHT LEFT WITHIN REACH.
[2022-11-17 05:52] LABS: BASOPHILS ABSOLUTE AUTO 0.03 K/mm3 (0.00-0.23); BASOPHILS PERCENT AUTO 0 % (0-2); EOSINOPHILS ABSOLUTE AUTO 0.29 K/mm3 (0.00-0.68); EOSINOPHILS PERCENT AUTO 2 % (0-6); Hemoglobin 9.1 g/dL (13.5-17.5); IMMATURE GRAN ABSOLUTE AUTO 0.09 K/mm3 (0.00-0.10); IMMATURE GRAN PERCENT AUTO 1 % (0-1); LYMPHOCYTES ABSOLUTE AUTO 1.57 K/mm3 (0.84-5.20); LYMPHOCYTES PERCENT AUTO 12 % (21-46); MONOCYTES ABSOLUTE AUTO 0.94 K/mm3 (0.16-1.47); MONOCYTES PERCENT AUTO 7 % (4-13); Mean Corpuscular HGB 28.1 pg (26.0-34.0); Mean Corpuscular HGB Conc 31.4 g/dL (31.5-36.5); Mean Corpuscular Volume 90 fL (80-100); Mean Platelet Volume 10.4 fL (9.1-12.4); NEUTROPHILS ABSOLUTE AUTO 10.12 K/mm3 (1.96-9.15); NEUTROPHILS PERCENT AUTO 78 % (41-73); Platelet Count 433 K/mm3 (150-400); RDW Coefficient Variation 14.9 % (11.7-14.2); RDW Standard Deviation 48.4 fL (35.1-46.3); Red Blood Cell Count 3.24 M/mm3 (4.30-5.90); White Blood Cell Count 13.04 K/mm3 (4.00-11.30)
[2022-11-17 06:20] LABS: Albumin, Blood 2.2 g/dL (3.4-5.0); Anion Gap 6 mmol/L (6-16); Blood Urea Nitrogen 11 mg/dL (8-24); Bun/Creatinine Ratio 14.4 (12.0-20.0); CO2, Blood 27 mmol/L (21-32); Chloride, Blood 104 mmol/L (98-108); Creatinine, Blood 0.76 mg/dL (0.60-1.20); Glomerular Filtration Rate 91 (60-); Glucose, Blood 69 mg/dL (70-99); Phosphorus, Blood 2.5 mg/dL (2.5-4.9); Potassium, Blood 2.8 mmol/L (3.5-5.5); Sodium, Blood 137 mmol/L (136-145)
--- NOTE | 2022-11-17 08:20 | NUR ---
PT IS HAVING LOOSE MUCOUS MELENA STOOL PT WOUND SITE FROM PREVIOUS J TUBE IS LEAKING PURULENT FLUID
--- NOTE | 2022-11-17 15:22 | NUR ---
PT HAD 2ND BM LOOSE MUCOUS WITH BLOOD NOTED. MD NOTIFED, SEE ORDERS.
--- NOTE | 2022-11-17 18:28 | NUR ---
SHIFT SUMMARY- PT IS ALERT AND ORIENTED X4. R/A, BED REST. PT HAS HAD 2 EPISODES OF LOOSE MUCOUS STOOL WITH BLOOD. PT ABDOMEN IS DISTENDED AND HE IS RELEASING LARGE AMOUNTS OF GAS. MD NOTIFIED. PT IS IRRITABLE BUT OTHERWISE COOPERATIVE. PT DID NOT EAT BREAKFAST OR DINNER. ATE ABOUT 70% OF LUNCH. SIPPING ON WATER THROUGHOUT THE DAY. BED IS IN THE LOWEST POSITION WITH CALL LIGHT IN REACH. [facility] SOCIAL INFORMATICIST CAME BY TODAY TO CHECK ON PT.
--- NOTE | 2022-11-18 03:46 | NUR ---
SHIFT MOSTLY UNREMARKABLE. PAIN SEEMS ADEQUATELY MANAGED ON CURRENT REGIMEN. KEARNEY IN PLACE AND DRAINING WELL. MEPIPLEX ON ABDOMEN AND STERI STRIPS OVER INCISION C/D/I. DESPITE REDNESS OVER BOTTOM PT ONLY ALLOWS US TO REPOSITION INFREQUENTLY. BECOMES IRRITABLE WHEN ATTEMPTS ARE MADE TO DO IT MORE FREQUENTLY. CALL LIGHT LEFT WITHIN REACH.
[2022-11-18 05:33] LABS: BASOPHILS ABSOLUTE AUTO 0.04 K/mm3 (0.00-0.23); BASOPHILS PERCENT AUTO 0 % (0-2); EOSINOPHILS ABSOLUTE AUTO 0.28 K/mm3 (0.00-0.68); EOSINOPHILS PERCENT AUTO 2 % (0-6); Hematocrit 27.3 % (37.0-53.0); Hemoglobin 8.6 g/dL (13.5-17.5); IMMATURE GRAN ABSOLUTE AUTO 0.08 K/mm3 (0.00-0.10); IMMATURE GRAN PERCENT AUTO 1 % (0-1); LYMPHOCYTES ABSOLUTE AUTO 1.83 K/mm3 (0.84-5.20); LYMPHOCYTES PERCENT AUTO 14 % (21-46); MONOCYTES ABSOLUTE AUTO 1.01 K/mm3 (0.16-1.47); MONOCYTES PERCENT AUTO 8 % (4-13); Mean Corpuscular HGB 28.4 pg (26.0-34.0); Mean Corpuscular HGB Conc 31.5 g/dL (31.5-36.5); Mean Corpuscular Volume 90 fL (80-100); Mean Platelet Volume 10.5 fL (9.1-12.4); NEUTROPHILS ABSOLUTE AUTO 9.95 K/mm3 (1.96-9.15); NEUTROPHILS PERCENT AUTO 75 % (41-73); Platelet Count 391 K/mm3 (150-400); Red Blood Cell Count 3.03 M/mm3 (4.30-5.90); White Blood Cell Count 13.19 K/mm3 (4.00-11.30)
[2022-11-18 05:53] LABS: Anion Gap 6 mmol/L (6-16); Blood Urea Nitrogen 12 mg/dL (8-24); Bun/Creatinine Ratio 15.6 (12.0-20.0); CO2, Blood 25 mmol/L (21-32); Calcium, Blood 8.1 mg/dL (8.5-10.1); Chloride, Blood 104 mmol/L (98-108); Creatinine, Blood 0.77 mg/dL (0.60-1.20); Glomerular Filtration Rate 91 (60-); Glucose, Blood 51 mg/dL (70-99); Phosphorus, Blood 2.4 mg/dL (2.5-4.9); Potassium, Blood 3.3 mmol/L (3.5-5.5); Sodium, Blood 135 mmol/L (136-145)
--- NOTE | 2022-11-18 12:37 | NUR ---
REFUSING PAIN MEDS PT C/O ABD PAIN AND BACK PAIN. PT OFFERED ORDERED TRAMADOL AND REFUSED TO TAKE IT BECAUSE HE WANTED THE "TWO PILLS". OFFERED TYLENOL WITH TRAMADOL, PT BECAME FRUSTRATED AND REFUSED TO TAKE BOTH MEDICATIONS. THIS WAS RELAYED TO DR. MARTINEZ. OXYCODONE ORDERED IN REPLACEMENT. PT CONTINUED TO REFUSE AND WANTED THE "TWO PILLS TOGETHER OR NONE". DR. MARTINEZ IN ROOM ASKING PT WHAT WORKS FOR HIME. PT RESPONDED WITH "DILADID". PT OFFERED DILADID AND STATED HE WILL NOT TAKE IT UNLESS HE GETS TWO PILLS. THIS WAS REPORTED TO DR. MARTINEZ.
--- NOTE | 2022-11-18 17:55 | NUR ---
SHIFT SUMMARY PT REFUSED PAIN MEDS MOST OF THE DAY. PT DID ACCEPT DILADID AND TYLENOL THIS AFTERNOON. CT OF ABD COMPLETED THIS AFTERNOON. LOOSE, DARK STOOLS T/O THE DAY. INCONTINENT. KEARNEY CATH PATENT & DRAINING. PT PASSES A SIGNIFICANT AMOUNT OF GAS WHEN TURNING IN BED. PT IS NOT VERY MOTIVATED TO MOVE OR REPOSITION. LOTS OF ENCOURAGMENT GIVEN TO PT TO MOVE. NO OTHER ACUTE CHANGES IN ASSESSMENT AT THIS TIME. VS REVIEWED. CALL LIGHT IN REACH. DENIES OTHER NEEDS AT THIS TIME.
--- NOTE | 2022-11-19 01:27 | NUR ---
CHANGED DRESSING FORM ANGELA SITE, PINK/RED TINGED DRAINAGE.
[2022-11-19 05:33] LABS: Hematocrit 27.9 % (37.0-53.0); Hemoglobin 8.8 g/dL (13.5-17.5); Mean Corpuscular HGB 27.8 pg (26.0-34.0); Mean Corpuscular HGB Conc 31.5 g/dL (31.5-36.5); Mean Corpuscular Volume 88 fL (80-100); Mean Platelet Volume 10.9 fL (9.1-12.4); Platelet Count 391 K/mm3 (150-400); RDW Standard Deviation 48.2 fL (35.1-46.3); Red Blood Cell Count 3.16 M/mm3 (4.30-5.90); White Blood Cell Count 14.25 K/mm3 (4.00-11.30)
--- NOTE | 2022-11-19 06:23 | NUR ---
PT CALLS ON LIGHT FOR NEEDS, SLIGHT CONFUSION AT TIMES BUT EASILY REORIENTED. PAIN MANAGED WITH 0.5 DILAUDID Q 4HRS. CHANGED DRESSING TO OLD ANGELA SITE, PURULENT PINK/RED DRAINAGE. DRAINAGE NOTED FROM AROUND KEARNEY THIS AM, CLEANED WELL.
[2022-11-19 06:31] LABS: Albumin/Globulin Ratio 0.5 (0.8-1.8); Bilirubin, Total 0.5 mg/dL (0.1-1.0); Bun/Creatinine Ratio 12.7 (12.0-20.0); C-REACTIVE PROTEIN, EXT RANGE 5.61 mg/dL (0.000-0.300); Calcium, Blood 8.2 mg/dL (8.5-10.1); Creatinine, Blood 0.71 mg/dL (0.60-1.20); Globulin, Blood 4.2 g/dL (2.2-4.0); Percent Saturation 10.2 % (20.0-50.0); Potassium, Blood 3.4 mmol/L (3.5-5.5); Thyroid Stimulating Hormone 2.77 uIU/mL (0.360-4.800); Total Protein, Blood 6.2 g/dL (6.4-8.2)
--- NOTE | 2022-11-19 16:32 | NUR ---
SHIFT SUMMARY MULTIPLE LOOSE, TARRY, DARK BROWN/BURGUNDY STOOLS THIS SHIFT. DR. MARTINEZ AWARE OF THE COLOR. CULTURE OF PURULENT FLUID FROM OLD ANGELA SITE SENT TO LAB. SITE CLEANSED AND NEW MEPILEX PLACED. IV ABX STARTED TODAY. DR. LAGUNA IN TO SEE THE PT ABOUT ABD ABCESSES. PT DECLINED PROCEDURE TO DRAIN AND CULTURE THESE SITES AT THIS TIME. PT ASKING TO BE TRANSFERED TO THE [facility] IN [place] FOR FURTHER TREATMENT. DISCHARGE PLANNING AWARE. PAIN MEDS GIVEN TWICE THIS SHIFT. PT SLEEPS OFTEN BETWEEN CARE. REFUSED BEDBATH TODAY. RELUCTANT BUT ALLOWS FOR REPOSITIONING AFTER ATTENDS CHANGED. KEARNEY CATH PATENT & DRAINING. NO OTHER ACUTE CHANGES IN ASSESSMENT AT THIS TIME. VS REVIEWED. CALL LIGHT IN REACH. DENIES OTHER NEEDS AT THIS TIME.
--- NOTE | 2022-11-19 17:46 | NUR ---
KEARNEY IRRIGATED AFTER PT STATED HE FELT PRESSURE IN HIS BLADDER. BLADDER SCAN REVEALED MORE THAN 600 ML. IRRIGATED WITH PISTON SYRINGE AND KEARNEY NOW DRAINING WELL WITH GOOD OUTPUT
--- NOTE | 2022-11-20 05:51 | NUR ---
PT CONTINUES TO HAVE LOW MOTIVATION WITH PARTICIPATION IN CARE, KINDLY REFUSED SOME TURNS. PAIN MEDS GIVEN Q4HRS FOR 15/10 PAIN, PT SLEEPS AFTER MEDICATION GIVEN. 1 LG BM, LOOSE WITH SOME FORMED.
--- NOTE | 2022-11-20 18:14 | NUR ---
DAYSHIFT SUMMARY No acute changes to patient status this shift, awaiting placement. Dressing on RLQ, CDI. Midline incision healing well, new pink epithelial tissue noted. Vitals stable, CBG WNL. Patient resting comfortably all day. Awaiting facility transfer. Will continue plan of care.
--- NOTE | 2022-11-21 05:19 | NUR ---
PT PLEASANT, SOME MOMENTS OF CONFUSION, ABLE TO REORIENT. MINIMAL REPOSITIONING D/T PT REFUSING. C/O PAIN IN ABD, VERY TENDER TO TOUCH. DRESSING CHANGED, DRAINAGE ANAND/YELLOW.
[2022-11-21 05:42] LABS: Hematocrit 26.4 % (37.0-53.0); Hemoglobin 8.3 g/dL (13.5-17.5); Mean Corpuscular HGB 28.2 pg (26.0-34.0); Mean Corpuscular HGB Conc 31.4 g/dL (31.5-36.5); Mean Corpuscular Volume 90 fL (80-100); Mean Platelet Volume 11.2 fL (9.1-12.4); Platelet Count 323 K/mm3 (150-400); RDW Coefficient Variation 14.7 % (11.7-14.2); RDW Standard Deviation 48.2 fL (35.1-46.3); Red Blood Cell Count 2.94 M/mm3 (4.30-5.90); White Blood Cell Count 9.37 K/mm3 (4.00-11.30)
[2022-11-21 06:07] LABS: Albumin, Blood 1.8 g/dL (3.4-5.0); Albumin/Globulin Ratio 0.4 (0.8-1.8); Bilirubin, Total 0.4 mg/dL (0.1-1.0); Bun/Creatinine Ratio 15.2 (12.0-20.0); Calcium, Blood 7.8 mg/dL (8.5-10.1); Creatinine, Blood 0.66 mg/dL (0.60-1.20); Globulin, Blood 4.1 g/dL (2.2-4.0); Potassium, Blood 3.3 mmol/L (3.5-5.5); Total Protein, Blood 5.9 g/dL (6.4-8.2)
--- NOTE | 2022-11-21 15:10 | NUR ---
SHIFT SUMMARY PT RESTING QUIETLY DURING SHIFT REPORT. DRSG CHANGED TO RIGHT ABD PRIOR TO START OF SHIFT; REMAINS C/D/I TO PRESENT. MIDLINE INCISION AREA HEALING WNL'S. NYSTATIN PWD APPLIED TO BL GROIN AREA. KEARNEY TO GRAVITY, PATENT; BUT DRAINING CLOUDY PALE URINE. PT CLEANED AND REPOSITIONED A COUPLE OF TIMES, BUT DOES NOT LIKE MOVING AT ALL. PT CONTINUING TO REFUSE TO WORK WITH THERAPY. REORDERED AGAIN TODAY, BUT PT REFUSING. IV ABX INFUSED PER EMAR. PT RESTING QUIETLY WATCHING TV. DENIED FURTHER NEEDS AT THIS TIME. CALL LT IN REACH.
[2022-11-22 05:07] LABS: Hematocrit 27.4 % (37.0-53.0); Hemoglobin 8.8 g/dL (13.5-17.5); Mean Corpuscular HGB 28.5 pg (26.0-34.0); Mean Corpuscular HGB Conc 32.1 g/dL (31.5-36.5); Mean Corpuscular Volume 89 fL (80-100); Mean Platelet Volume 11.2 fL (9.1-12.4); Platelet Count 317 K/mm3 (150-400); RDW Coefficient Variation 14.8 % (11.7-14.2); RDW Standard Deviation 47.5 fL (35.1-46.3); Red Blood Cell Count 3.09 M/mm3 (4.30-5.90); White Blood Cell Count 10.06 K/mm3 (4.00-11.30)
[2022-11-22 05:37] LABS: Albumin, Blood 1.9 g/dL (3.4-5.0); Albumin/Globulin Ratio 0.5 (0.8-1.8); Bilirubin, Total 0.4 mg/dL (0.1-1.0); Bun/Creatinine Ratio 15.6 (12.0-20.0); Creatinine, Blood 0.64 mg/dL (0.60-1.20); Globulin, Blood 4.2 g/dL (2.2-4.0); Magnesium, Blood 1.7 mg/dL (1.6-2.4); Potassium, Blood 3.1 mmol/L (3.5-5.5); Total Protein, Blood 6.1 g/dL (6.4-8.2)
[2022-11-22 12:10] LABS: SARS-Cov-2 (COVID-19) PCR, MMC NEGATIVE (NEGATIVE)
--- NOTE | 2022-11-22 12:50 | NUR ---
PT SLEEPING AT START OF SHIFT, BUT WOKE BRIEFLY FOR CARE. ALWAYS GRUMPY AND IRRITABLE. DR MARTINEZ IN TWICE TO SEE PT THIS AM, ATTEMPTING TO EDU PT ON PLAN OF CARE. PT TO D/C TO R/H TODAY, PER CARE MANAGEMENT, TO CONTINUE IV ABX. PT FINALLY WOKE AND ATE BREAKFAST. RUBBER STAMP MAKER'S IN TO ASSIST PT IN GETTING READY TO D/C. BED BATH BEING GIVEN AND PT SITTING UP TO EOB, TALKING AND CURSING. PT PASSING ALOT OF FLATUS WITH MOVEMENT AND GETTING DRESSED. PT AGREEABLE TO GETTING UP TO BSC. PT WAS TALKING WHILE ON BSC AND SUDDENLY SPEECH WENT SLURRED AND L ARM FLACCID. DR MARTINEZ NOTIFIED IMMEDIATELY AND RR CALLED. VS OBTAINED AND PT ASSISTED BACK INTO BED FROM BSC RR TEAM ARRIVED. STAT CTA OF HEAD AND NECK ORDERED AND PT TAKEN DOWN TO IMAGING VIA RADHA. PT TX'D TO PCU FROM IMAGING. STAFF FROM [facility] CAME AND OBTAINED PT'S BELONGINGS AND WAS TAKING THEM TO PCU 5. PCU 5 RN CAME LATER TO OBTAIN PT'S MEDS AND CHART.
--- NOTE | 2022-11-22 15:20 | NUR ---
TRANSFER NOTE PATIENT TRANSFERRED TO UNIT S/P ACUTE MENTATION CHANGE AND RAPID RESPONSE ON MEDICAL FLOOR. PER REPORT FROM MEDICAL FLOOR RN, PATIENT WAS ASSISTED UP TO COMMODE WHEN HE SUDDENLY HAD SLURRED SPEECH, LEFT SIDE DEFICIT/FLACCID, AND LETHARGIC. RR WAS CALLED. EKG WAS DONE, PATIENT WAS TAKEN TO IMAGING FOR HEAD AND NECK CTA. TRANSFERRED TO PCU ROOM 5 AFTER IMAGING. PATIENT ARRIVED TO ROOM AT 1230 ON [place], SLIDE TRANSFERRED TO BED. NOTED TO BE LETHARGIC, RIGHT SIDED GAZE, BILAT [place]STAGMUS, SLURRED/GARBLED SPEECH, LEFT SIDE FACIAL DROOP, LEFT SIDE NEURO DEFICIT WITH WEAK SENIOR MEDICAL BILLING SPECIALIST AND NO MOVEMENT TO LEFT LEG. OPENS EYES TO VERBAL STIMULI, VERY DIFFICULT TO UNDERSTAND PATIENT'S SPEECH. VSS. DRAIN SITE WOUND DRESSING CHANGED, LARGE AMOUNT OF PURULENT DRAINAGE EXPRESSED FROM DRAIN SITE WITH GENTLE PALPATION TO RLQ ABD. MIDLINE ABD INCISION HEALING WNL. TELEMETRY PACED IN 90S. DR MARTINEZ AND PATIENT'S TRANSPORTATION SUPERINTENDENT TO ROOM AND CALLED PATIENT'S DAUGHTER ON PHONE. DAUGHTER GAVE CONSENT FOR COBRA TRANSFER TO [facility] FOR ACUTE STROKE. 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 EMS TRANPORT ARRIVED. PATIENT TRANSFERRED TO [place]. BRIEF REPORT GIVEN TO EMS. PATIENT DEPARTED UNIT AT 1400. REPORT CALLED TO LAUREEN URBAN IN THE ICU AT [facility] AT [phone].
== END 2022-11-22 13:33 | disposition short-term general hospital (02) | DRG 853 ==
LOC: ER 11:31 → ICUE 14:53 → PCU 14:53 → MEDS 14:53 → ICUE 16:04 → PCU 10-27 14:55 → SURS 10-28 11:48 → PCU 10-29 10:55 → MEDS 11-06 15:17 → PCU 11-22 12:12
PROVIDERS: Family Medicine; Internal Medicine; Student in an Organized Health Care Education/Training Program; Surgery; ADMIT Internal Medicine
PROC: 30233N1 Transfusion of Nonautologous Red Blood Cells into Peripheral Vein, Percutaneous Approach (ICD-10-PCS; 2022-10-26)
PROC: 3E03329 Introduction of Other Anti-infective into Peripheral Vein, Percutaneous Approach (ICD-10-PCS; 2022-10-26)
PROC: 0DU907Z Supplement Duodenum with Autologous Tissue Substitute, Open Approach (ICD-10-PCS; principal; 2022-10-26 16:30)
PROC: 02HV33Z Insertion of Infusion Device into Superior Vena Cava, Percutaneous Approach (ICD-10-PCS; 2022-10-31)
PROC: 0DHA3UZ Insertion of Feeding Device into Jejunum, Percutaneous Approach (ICD-10-PCS; 2022-11-01)
PROC: 3E0H76Z Introduction of Nutritional Substance into Lower GI, Via Natural or Artificial Opening (ICD-10-PCS; 2022-11-01)
DX: A41.9 Sepsis, unspecified organism (principal); G92.8 Other toxic encephalopathy; K26.5 Chronic or unspecified duodenal ulcer with perforation; K65.1 Peritoneal abscess; I63.511 Cerebral infarction due to unspecified occlusion or stenosis of right middle cerebral artery; E87.1 Hypo-osmolality and hyponatremia; I47.1 Supraventricular tachycardia; E87.0 Hyperosmolality and hypernatremia; K92.1 Melena; G81.92 Hemiplegia, unspecified affecting left dominant side; D62 Acute posthemorrhagic anemia; Z78.1 Physical restraint status; Z51.5 Encounter for palliative care; I10 Essential (primary) hypertension; E11.9 Type 2 diabetes mellitus without complications; E78.00 Pure hypercholesterolemia, unspecified; M19.90 Unspecified osteoarthritis, unspecified site; M54.9 Dorsalgia, unspecified; R33.9 Retention of urine, unspecified; K21.9 Gastro-esophageal reflux disease without esophagitis; G89.29 Other chronic pain; F10.20 Alcohol dependence, uncomplicated; E87.6 Hypokalemia; E83.39 Other disorders of phosphorus metabolism; E88.09 Other disorders of plasma-protein metabolism, not elsewhere classified; D69.6 Thrombocytopenia, unspecified; Z90.49 Acquired absence of other specified parts of digestive tract; Z95.0 Presence of cardiac pacemaker; Z90.79 Acquired absence of other genital organ(s); Z79.2 Long term (current) use of antibiotics; Z79.84 Long term (current) use of oral hypoglycemic drugs; Z79.899 Other long term (current) drug therapy
CPT/HCPCS: 36415; 36430; 36569; 51702; 70496; 70498; 71045; 74018; 74160; 74176; 74177; 74240; 80048; 80053; 80069; 81001; 82140; 82607; 82728; 82746; 82803; 82947; 83540; 83550; 83605; 83690; 83735; 84100; 84145; 84295; 84443; 84478; 85014; 85018; 85025; 85027; 86140; 86850; 86900; 86901; 86923; 87040; 87070; 87086; 87205; 93005; 93010; 94760; 94762; 96361; 96365-59; 96375; 97110; 97162; 97166; 97530; 99285-25; A9270; C1751; C9113; J0282; J0696; J1100; J1170; J1650; J1815; J2060; J2270; J2354; J2370; J2405; J2543; J2704; J3010; J3411; J3480; J7030; J7050; J7060; J7070; P9016; Q9967; U0004